=== PATIENT | female | born 1970 | race Caucasian/White ===

== ENCOUNTER → 2020-03-19 10:51 | Outpatient (BNVA) | payer BC, SELFPAY | PROVIDERS: PCP Internal Medicine; Referring Provider Internal Medicine; Visit Provider Orthopaedic Surgery | DX: Z76.89 Persons encountering health services in other specified circumstances (principal) ==

== ENCOUNTER → 2020-07-12 13:09 | Outpatient (BNVA) | payer BC, SELFPAY | PROVIDERS: PCP Internal Medicine; Visit Provider Obstetrics & Gynecology ==

== ENCOUNTER 2021-06-10 09:03 | Outpatient (REF) | payer BC, SELFPAY ==
[2021-06-10 09:53] LABS: COVID-19 Test Negative (Negative)
== END 2021-06-10 09:04 | disposition home or self-care (01) ==
LOC: HO.LAB 09:03
PROVIDERS: Visit Provider Internal Medicine
DX: Z20.822 Contact with and (suspected) exposure to COVID-19 (principal)
CPT/HCPCS: 87635; C9803

== ENCOUNTER 2021-09-06 10:44 | Outpatient (REF) | payer BC, SELFPAY ==
--- NOTE | ~2021-09-06 | MM_ITS ---
EXAMINATION: MM SCREENING DIGITAL BREAST TOMOSYNTHESIS, BILATERAL CLINICAL INFORMATION: Screening. Asymptomatic. The lifetime risk of breast cancer based on the Tyrer-Cuzick Model is 8%. COMPARISON: Mammography: 09/12/2018; outside mammography 08/28/2017, 10/07/2016, 08/25/2016 ([place]). TECHNIQUE: Digital breast tomosynthesis is performed in both the craniocaudal and mediolateral oblique views along with computer-aided detection (CAD). Synthesized 2D images are generated from the tomosynthesis. Additional bilateral MLO views are provided. FINDINGS: There are scattered areas of fibroglandular density (ACR BI-RADS breast composition Category b). There are no significant masses, abnormal calcifications, or other abnormalities. There is no developing density or architectural abnormality. Biopsy clip marker again noted anterior 12:30 o'clock right breast. MM/MM tomosynthesis screening BI IMPRESSION: No mammographic evidence of malignancy. ASSESSMENT: BI-RADS 1: Negative RECOMMENDATION: Routine annual mammography screening. This patient's information was entered into a reminder system with a target due date for their next mammogram.
== END 2021-09-06 10:45 | disposition home or self-care (01) ==
LOC: HO.MAMMO 10:44
PROVIDERS: PCP Internal Medicine; Visit Provider Advanced Practice Midwife
DX: Z12.31 Encounter for screening mammogram for malignant neoplasm of breast (principal)
CPT/HCPCS: 77063; 77067

== ENCOUNTER 2021-09-11 12:57 | Outpatient (REF) | payer BC, SELFPAY ==
[2021-09-13 16:21] LABS: Follicle Stimulating Hormone 5.8 mIU/mL
== END 2021-09-11 12:58 | disposition home or self-care (01) ==
LOC: HO.LAB 12:57
PROVIDERS: PCP Internal Medicine; Visit Provider Advanced Practice Midwife
DX: Z01.411 Encounter for gynecological examination (general) (routine) with abnormal findings (principal); N95.1 Menopausal and female climacteric states
CPT/HCPCS: 36415; 83001

== ENCOUNTER → 2021-09-15 15:54 | Outpatient (BNVA) | payer BC, SELFPAY | PROVIDERS: PCP Internal Medicine; Visit Provider Advanced Practice Midwife | DX: Z13.89 Encounter for screening for other disorder (principal) ==

== ENCOUNTER 2021-12-27 10:26 | Outpatient (REF) | payer BC, SELFPAY ==
--- NOTE | ~2021-12-27 | XR_ITS ---
EXAMINATION: XR HIP, LEFT CLINICAL INFORMATION: Left hip pain COMPARISON: None TECHNIQUE: AP pelvis and 2 views of the left hip of the left hip. FINDINGS: AP film of the pelvis does not demonstrate any evidence of acute fracture or diastases. Sacroiliac joints appear unremarkable. Hip joint spaces appear maintained. There is some mild collar spurring seen about the acetabuli bilaterally. 2 views of the left hip do not demonstrate any evidence of acute fracture or dislocation. Hip joint space maintained. No destructive bony lesion appreciated. XR/XR hip LT w PEL1V IMPRESSION: No significant bony abnormality of the pelvis or left hip appreciated.
== END 2021-12-27 10:27 | disposition home or self-care (01) ==
LOC: HO.HMGCX 10:26
PROVIDERS: Visit Provider Physician Assistant
DX: M25.552 Pain in left hip (principal)
CPT/HCPCS: 73502

== ENCOUNTER 2022-08-21 12:23 | Outpatient (REF) | payer BC, SELFPAY ==
[2022-08-21 13:49] LABS: MANUAL DIFF FLAG NO
[2022-08-21 13:53] LABS: Basophils Percent Auto 0.6 % (0-2); Eosinophils Absolute Auto 0.3 X10*3/uL (0.0-0.4); Eosinophils Percent Auto 4.6 % (0-4); Hematocrit 40.7 % (37.0-47.0); Hemoglobin 13.2 g/dl (12.0-16.0); Imm Gran Abs Auto 0.02 X10*3/uL (0.00-0.03); Imm Gran Pct Auto 0.3 % (0.0-0.4); Lymphocytes Absolute Auto 2.6 X10*3/uL (1.2-4.9); Lymphocytes Percent Auto 36.8 % (20-40); Mean Corpuscular HGB Conc 32.4 g/dl (31.0-35.0); Mean Corpuscular Hemoglobin 29.3 pg (27.0-33.0); Mean Corpuscular Volume 90.4 fL (80.0-98.0); Mean Platelet Volume 9.3 fL (9.4-12.3); Monocytes Absolute Auto 0.5 X10*3/uL (0.1-1.2); Monocytes Percent Auto 7.2 % (2-11); Neutrophils Absolute Auto 3.5 x10*3/uL (2.0-8.3); Neutrophils Percent Auto 50.5 % (45-73); Platelet Count 353 X10*3/uL (160-400)
[2022-08-21 14:14] LABS: Alanine Aminotransferase 13 U/L (0-31); Albumin Level 4.1 g/dL (3.5-5.0); Alkaline Phosphatase 107 U/L (39-117); Anion Gap 11 (12-20); Aspartate Amino Transferase 11 U/L (5-31); Bilirubin Total 0.6 mg/dL (0.0-1.0); Blood Urea Nitrogen 10 mg/dL (9-16); Carbon Dioxide 25 mmol/L (22-29); Chloride 108 mmol/L (96-108); Cholesterol 170 mg/dL; Estimated Glomerular Filt Rate > 60; Glucose Fasting 99 mg/dL (60-99); HDL Cholesterol 44 mg/dL; LDL Cholesterol Calculated 117 mg/dl; Potassium 4.9 mmol/L (3.3-5.1); Sodium 139 mmol/L (135-145); Total Protein 6.5 g/dL (6.5-8.0); Triglycerides 49 mg/dL
[2022-08-21 14:32] LABS: TSH reflex Free T4 0.93 uIU/mL (0.32-4.0)
== END 2022-08-21 12:24 | disposition home or self-care (01) ==
LOC: HO.HMGCLDS 12:23
PROVIDERS: PCP Internal Medicine; Visit Provider Internal Medicine
DX: Z00.00 Encounter for general adult medical examination without abnormal findings (principal)
CPT/HCPCS: 36415; 80053; 80061; 84443; 85025

== ENCOUNTER 2022-09-12 10:12 | Outpatient (REF) | payer BC, SELFPAY ==
--- NOTE | ~2022-09-12 | MM_ITS ---
EXAMINATION: MM SCREENING DIGITAL BREAST TOMOSYNTHESIS, BILATERAL CLINICAL INFORMATION: Screening. Asymptomatic. The lifetime risk of breast cancer based on the Tyrer-Cuzick Model is 9%. COMPARISON: Mammography: 09/06/2021, 09/12/2018, outside mammography 08/28/2017 ([place]). TECHNIQUE: Digital breast tomosynthesis is performed in both the craniocaudal and mediolateral oblique views along with computer-aided detection (CAD). Synthesized 2D images are generated from the tomosynthesis. FINDINGS: There are scattered areas of fibroglandular density (ACR BI-RADS breast composition Category b). There are no significant masses, abnormal calcifications, or other abnormalities. There is a biopsy clip marker anterior central right breast. The parenchymal pattern is similar to prior studies and there is no developing density or architectural abnormality. The axilla and skin contours are unremarkable. MM/MM tomosynthesis screening BI IMPRESSION: No mammographic evidence of malignancy. ASSESSMENT: BI-RADS 1: Negative RECOMMENDATION: Routine annual mammography screening. This patient's information was entered into a reminder system with a target due date for their next mammogram.
== END 2022-09-12 10:13 | disposition home or self-care (01) ==
LOC: HO.MAMMO 10:12
PROVIDERS: PCP Internal Medicine; Visit Provider Internal Medicine
DX: Z12.31 Encounter for screening mammogram for malignant neoplasm of breast (principal)
CPT/HCPCS: 77063; 77067

== ENCOUNTER → 2022-09-16 14:24 | Outpatient (BNVA) | payer BC, SELFPAY | PROVIDERS: PCP Internal Medicine; Visit Provider Advanced Practice Midwife | DX: Z13.89 Encounter for screening for other disorder (principal) ==

== ENCOUNTER 2022-09-30 11:22 | Outpatient (REF) | payer BC, SELFPAY ==
[2022-10-02 07:29] LABS: Follicle Stimulating Hormone 80.1 mIU/mL
== END 2022-09-30 11:23 | disposition home or self-care (01) ==
LOC: HO.HMGCLDS 11:22
PROVIDERS: PCP Internal Medicine; Visit Provider Advanced Practice Midwife
DX: R23.2 Flushing (principal)
CPT/HCPCS: 36415; 83001

== ENCOUNTER 2023-06-28 11:07 | Outpatient (AMB) | payer BC, SELFPAY ==
[2023-06-28 11:08] VITALS: BP 177/88; PULSE 95; BMI 42.9
--- NOTE | 2023-06-28 11:08 | A.OFFVIS_ITS ---
Intake Vital Signs 06/28/23 11:08 Height 5 ft 3 in Weight 242 lb 1.081 oz BMI 42.9 BP 177/88 H Blood Pressure Location Lt brachial Position Sitting Pulse 95 Pulse Source Pulse Oximeter Intake Visit Reasons: Colonoscopy Screening Intake Note: Pt presents to the office today for a colonoscopy screening. Pt states she has never had a previous colonoscopy. Pt denies any GI concerns at this time. Allergies aspartame Allergy (Unknown, Verified 06/28/23 11:10) hives parsnip Allergy (Unknown, Uncoded 06/28/23 11:10) swelling HPI Colonoscopy Screening HPI Details 52 year old? female here today for pre c olonoscopy screening.? Patient was sent to us by her PCP.? This is her first colonoscopy screening.? Patient had positive Cologuard in May of 2022. Patient denies any melena, hematochezia, unintentional weight loss or ribbon like stools. Patient denies any gastrointestinal symptoms in the past or at present.? Denies any personal or family history of gastrointestinal disease, colon polyps, or cancer.? Denies history of difficulty with sedation or anesthesia in the past.? Negative for history of sleep apnea.? Denies any history of cardiac, renal, pulmonary, or hepatic disease.?? No history of infectious? diseases like hepatitis A, B, C, HIV or tuberculosis.? Patient is not on any anticoagulation therapy. 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 Cognitive needs: No Hearing needs: No Vision needs: Yes Female Reproductive History Menstrual Age of Menarche: 12 Review of Systems Const Denies weight gain and Denies weight loss ENT Reports no additional complaints, Denies dysphagia and Denies odynophagia Card Reports no additional complaints Resp Reports no additional complaints GI Denies abdominal pain, Denies belching, Denies melena, Denies bloating, Denies change in bowel habits, Denies dysphagia, Denies excessive flatus, Denies dyspepsia, Denies heartburn, Denies diarrhea, Denies loose stools, Denies nausea, Denies odynophagia and Denies vomiting Musc Reports no additional complaints Neuro Reports no additional complaints Psych Reports no additional complaints Endo Reports no additional complaints Physical Exam Vital Signs: Last Vital Signs Pulse 95 06/28/23 11:08 BP 177/88 H 06/28/23 11:08 BMI result Body Mass Index 42.9 Const General: healthy appearing, no acute distress and well developed Nutritional Appearance: well nourished Orientation/consciousness: patient oriented x3 Resp Effort & Inspection: normal respiratory effort, able to speak in complete sentences, no tracheal deviation and symmetric chest movement Auscultation: clear to auscultation bilaterally Cardio Rate: regular rate GI Inspection: Yes normal to inspection and No distended Palpation (GI): Soft to palpation, not firm, nontender and No hepatosplenomegaly present Auscultation: normal bowel sounds General: Yes no CVA tenderness Back/Spine/Pelvis Back: no CVA tenderness Skin General skin exam: elasticity normal, turgor normal and dry skin Neuro General: patient oriented x3 Psych Appearance: grossly normal Mental Status: mental status grossly normal Assessment & Plan Assessment & Plan (1) Positive colorectal cancer screening using Cologuard test: Code(s): R19.5 - Other fecal abnormalities Plan Patient denies any GI, cardiac or respiratory symptoms.? Denies any issues with anesthesia in the past.? Denies any history of sleep apnea.? No history infectious diseases in the past or present.? Not on any anticoagulation therapy.? No family or personal history of colon cancer or polyps.? As mentioned above in HPI patient had positive Cologuard. Patient denies melena, hematochezia, unintentional weight loss or ribbon like stools.? Discussed at length the pre-procedure,? prep, diet & medications as well as what to expect prior, during and after the procedure.?? Stressed the importance of good bowel prep. ?Recommended the use of Vaseline or Calmoseptine OTC & baby wipes with bowel movements to promote comfort.? ?Patient verbalizes understanding and agrees to plan of care.? She was given the opportunity to ask questions and all questions answered.? We will see her after the procedure.? Medications: New bisacodyl (Dulcolax (bisacodyl)) take 4 tabs at noon the day before your colonoscopy 20 mg (4 x 5 mg) PO ONCE 1 day 4 tabs 0RF Z12.11 - Encounter for screening for malignant neoplasm of colon polyethylene glycol 3350 (Miralax) As directed by gastroenterology department at [facility] 238 grams PO ONCE 238 grams 0RF Z12.11 - Encounter for screening for malignant neoplasm of colon Coding Level of Care Code New Pt Level 3 (96346) Diagnoses Positive colorectal cancer screening using Cologuard test R19.5 Time Spent (min) 40 Comment 30 minutes spent with patient and additional 10 minutes spent reviewing her records
== END 2023-06-28 11:52 | disposition home or self-care (01) ==
PROVIDERS: PCP Internal Medicine; Referring Provider Internal Medicine; Visit Provider Nurse Practitioner Family
DX: R19.5 Other fecal abnormalities (principal)
CPT/HCPCS: 99203

== ENCOUNTER → 2023-06-28 11:07 | Outpatient (BNVA) | payer BC, SELFPAY | PROVIDERS: PCP Internal Medicine; Visit Provider Nurse Practitioner Family ==

== ENCOUNTER 2023-08-16 10:17 | Day surgery (SDC) | payer BC, SELFPAY ==
--- NOTE | 2023-08-13 10:49 | P.CONAN_ITS ---
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) BMI 40.0-44.9, adult (Acute) Perimenopausal (Acute) Encounter for annual routine gynecological examination (Acute) Patellofemoral pain syndrome of left knee (Acute) Patellofemoral pain syndrome of right knee (Acute) Dysuria (Acute) Knee pain (Acute) Past Medical History Medical History BMI 40.0-44.9, adult Family History Family History Father Diabetes mellitus COPD (chronic obstructive pulmonary disease) Mother History of kidney cancer Maternal Grandmother Cervical cancer Surgical History Surgical History History of tonsillectomy History of surgery History of knee surgery Social History Social History Housing: House Alcohol intake: never Patient Tobacco Use Status: Former Tobacco user e-Cigarette/Vaping Use: Never Used Current occupational status: employed 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
[2023-08-16 10:30] VITALS: BMI 43.1
--- NOTE | 2023-08-16 10:38 | MHC.SHP ---
Pre-Procedural Eval Section A - 24 Hr Update-Section A only Date of Service: 08/16/23 The patient is an INPATIENT: No The patient has been examined within 24 hours of the surgical procedure. The History & Physical has been completed within 30 days and I have reviewed it.: No Section B - Complete if H&P > 30 days Chief Complaint: Other fecal abnormalities Relevant Family History (Specify if Yes): No Relevant Social History: Tobacco Use (Former smoker) Present Medications: see Short Stay Collaborative assessment Medical History: Significant History (Morbid obesity, bilateral knee pain) History of Previous Operations: Relevant previous surgery/procedure and date(s) (History of tonsillectomy History of surgery History of knee surgery) Allergies: Allergies Allergy/AdvReac Type Severity Reaction Status Date / Time aspartame Allergy Unknown hives Verified 06/28/23 11:10 parsnip Allergy Unknown swelling Uncoded 06/28/23 11:10 Review of Systems Sugical H&P ROS: Negative: Constitution, Cardiovascular, Respiratory and Gastrointestinal Exam Surgical H&P Exam: Normal: Heart, Normal: Lungs, Normal: Extremities and Normal: Abdomen Plan Diagnosis/Plan: Unchanged I have reviewed the history and physical and performed a pertinent physical examination on my patient. No changes have occurred unless specified. Time Spent With Patient Time: Total time managing care of this patient today ____ minutes.
[2023-08-16 11:04] VITALS: BP 142/90; PULSE 94; RESP 18; TEMP 36.1; O2SAT 96
[2023-08-16] MEDS: Lactated Ringers 1,000 ML 100 ML IVCONT (11:07)
--- NOTE | 2023-08-16 11:09 | HO.ANESPROP2 ---
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) BMI 40.0-44.9, adult (Acute) Perimenopausal (Acute) Encounter for annual routine gynecological examination (Acute) Patellofemoral pain syndrome of left knee (Acute) Patellofemoral pain syndrome of right knee (Acute) Dysuria (Acute) Knee pain (Acute) Past Medical History Medical History BMI 40.0-44.9, adult Patient : No Family History Family History Father Diabetes mellitus COPD (chronic obstructive pulmonary disease) Mother History of kidney cancer Maternal Grandmother Cervical cancer Family history of problems with anesthesia: No Surgical History Surgical History History of tonsillectomy History of surgery History of knee surgery History of Problems with Anesthesia: No Social History Social History Housing: House Alcohol intake: never Patient Tobacco Use Status: Former Tobacco user Quit Date: 1999 e-Cigarette/Vaping Use: Never Used Use of substances other than those prescribed or required for medical reasons: No Are you DNR?: No Advance Directives: No Advance Directives Information Provided: Yes Patient : No (menopause) Current occupational status: employed 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 Cognitive needs: No Hearing needs: No Vision needs: Yes Meds Allergies Allergy/AdvReac Type Severity Reaction Status Date / Time aspartame Allergy Unknown hives Verified 06/28/23 11:10 parsnip Allergy Unknown swelling Uncoded 06/28/23 11:10 Active Medications: Current Medications Lactated Ringer's (Lr) 1,000 mls @ 100 mls/hr IVCONT .Q10H NICKOLAS Last Admin: 08/16/23 11:07 Dose: 100 mls/hr Exam Height,Weight and Vital Signs: Height 5 ft 3 in Weight 110.45 kg Last Vital Signs Temp 96.9 F 08/16/23 11:04 Pulse 94 08/16/23 11:04 Resp 18 08/16/23 11:04 BP 142/90 H 08/16/23 11:04 Pulse Ox 96 08/16/23 11:04 O2 Del Method Room Air 08/16/23 11:04 Airway Mallampati Class: III TM Dist: >3cm Neck ROM: Full Heart: RRR Lungs: CTA Assessment and Plan Assessment Anesthesia Assessment: Anesthesia Plan Discussed Final Anesthetic Review Family History of Problems with Anesthesia: No History of Problems with Anesthesia: No ASA Class: III Final Preanesthetic Review: Meds/Allgs Chart Reviewed, Consent Obtained/Reviewed and Anes Risks/Benef Reviewed Patient Risk: Intermediate Procedure Risk: Low Anesthetic Plan Anesthetic Plan: MAC: Disposition: Standard PACU
--- NOTE | 2023-08-16 12:18 | P.OP_ITS ---
Operative Note Operative Note Date of Service: 08/16/23 Narrative: COLONOSCOPY TILL CECUM WITH SNARE POLYPECTOMY, SUBMUCOSAL INJECTION AND HEMOCLIP PLACEMENT Pre-op diagnosis: Colon cancer screening, positive Cologuard test. Post-op diagnosis:? Colon polyps, Diverticulosis, hemorrhoids Endoscopist:? Nick Murphy MD Anesthesia:?MAC Consent: Indications for the procedure and potential complications of bleeding, perforation, reaction to medications and missed diagnosis were discussed with the patient and informed consent was obtained. Instrument: Olympus PCF H 190 L variable stiffness pediatric colonoscope Monitoring: Vital signs and clinical assessment, intermittent blood pressure monitoring, continuous EKG monitoring, Pulse oximetry and Carbon Dioxide monitoring were done throughout the procedure. Please see anesthesia flowsheet. Colon withdrawl time was 27 minutes. Procedure: The patient was placed in the left lateral decubitis position and pre-procedure medications were administered. After a digital rectal examination of the ano-rectum, the video colonoscope was inserted into the rectum and advanced through the colon to the cecum. The colonoscope was slowly withdrawn in a retrograde panoramic fashion and the colon mucosa was carefully examined including a retroflexed view of the rectum. Findings and interventions are described below. Procedure Difficulty: without difficulty Findings: Terminal Ileum: Not evaluated Cecum: Normal Ascending Colon: Normal Transverse Colon: A 7-8 mm sessile polyp - removed with a cold snare A 2.8 to 3 cms sessile polyp in the distal transverse colon at 65 cms . Polyp was removed with a hot snare and polypectomy site was closed with one hemoclip and marked by saskia ink Descending Colon: Normal Sigmoid Colon: A 7-8 mm sessile polyp - removed with a cold snare. Moderate diverticulosis Rectum: Moderate diverticulosis Ano-rectum: Small internal hemorrhoids Colon preparation: Good after some irrigation. [place] Bowel Preparation Scale Right colon; 2 Transverse colon: 2 Left colon; 2 (0 = Unprepared colon segment with mucosa not seen due to solid stool that cannot be cleared. 1 = Portion of mucosa of the colon segment seen, but other areas of the colon segment not well seen due to staining, residual stool and/or opaque liquid. 2 = Minor amount of residual staining, small fragments of stool and/or opaque liquid, but mucosa of colon segment seen well. 3 = Entire mucosa of colon segment seen well with no residual staining, small fragments of stool or opaque liquid) Impression and Post Procedure Diagnosis: Colonoscopy Findings: One large and two small polyps were removed Moderate diverticulosis seen in the left colon Small hemorrhoids on retroflexed exam. Plan: Pt has a FU appointment on 09/01/23 with Batsheva Zazueta NP Repeat Colonoscopy in 6 to 12 months if transverse colon polyp at 65 cms is adenomatous (to check polypectomy site) and 10 year if polyps are hyperplastic. Above findings were reviewed with the patient and relevant handouts were given and the discharge area.
--- NOTE | 2023-08-16 12:30 | HO.ANESPROP2 ---
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) BMI 40.0-44.9, adult (Acute) Perimenopausal (Acute) Encounter for annual routine gynecological examination (Acute) Patellofemoral pain syndrome of left knee (Acute) Patellofemoral pain syndrome of right knee (Acute) Dysuria (Acute) Knee pain (Acute) Past Medical History Medical History BMI 40.0-44.9, adult Functional capacity: independent ambulation Patient : No Family History Family History Father Diabetes mellitus COPD (chronic obstructive pulmonary disease) Mother History of kidney cancer Maternal Grandmother Cervical cancer Family history of problems with anesthesia: No Surgical History Surgical History History of tonsillectomy History of surgery History of knee surgery History of Problems with Anesthesia: No Social History Social History Housing: House Alcohol intake: never Patient Tobacco Use Status: Former Tobacco user Quit Date: 1999 e-Cigarette/Vaping Use: Never Used Use of substances other than those prescribed or required for medical reasons: No Are you DNR?: No Advance Directives: No Advance Directives Information Provided: Yes Patient : No Current occupational status: employed 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 Cognitive needs: No Hearing needs: No Vision needs: Yes Meds Allergies Allergy/AdvReac Type Severity Reaction Status Date / Time aspartame Allergy Unknown hives Verified 06/28/23 11:10 parsnip Allergy Unknown swelling Uncoded 06/28/23 11:10 Active Medications: Current Medications Lactated Ringer's (Lr) 1,000 mls @ 100 mls/hr IVCONT .Q10H NICKOLAS Last Admin: 08/16/23 11:07 Dose: 100 mls/hr Exam Height,Weight and Vital Signs: Height 5 ft 3 in Weight 110.45 kg Last Vital Signs Temp 96.9 F 08/16/23 11:04 Pulse 94 08/16/23 11:04 Resp 18 08/16/23 11:04 BP 142/90 H 08/16/23 11:04 Pulse Ox 96 08/16/23 11:04 O2 Del Method Room Air 08/16/23 11:04 Airway Mallampati Class: III TM Dist: >3cm Denture: Upper Heart: RRR Lungs: CTA Assessment and Plan Assessment Anesthesia Assessment: Anesthesia Plan Discussed Final Anesthetic Review Family History of Problems with Anesthesia: No History of Problems with Anesthesia: No ASA Class: III Final Preanesthetic Review: Meds/Allgs Chart Reviewed, Consent Obtained/Reviewed and Anes Risks/Benef Reviewed Anesthetic Plan Anesthetic Plan: MAC: Disposition: Standard PACU
--- NOTE | 2023-08-16 12:34 | HO.ANESPROP2 ---
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) BMI 40.0-44.9, adult (Acute) Perimenopausal (Acute) Encounter for annual routine gynecological examination (Acute) Patellofemoral pain syndrome of left knee (Acute) Patellofemoral pain syndrome of right knee (Acute) Dysuria (Acute) Knee pain (Acute) Past Medical History Medical History BMI 40.0-44.9, adult Functional capacity: independent ambulation Family History Family History Father Diabetes mellitus COPD (chronic obstructive pulmonary disease) Mother History of kidney cancer Maternal Grandmother Cervical cancer Family history of problems with anesthesia: No Surgical History Surgical History History of tonsillectomy History of surgery History of knee surgery History of Problems with Anesthesia: No Social History Social History Housing: House Alcohol intake: never Patient Tobacco Use Status: Former Tobacco user Quit Date: 1999 e-Cigarette/Vaping Use: Never Used Current occupational status: employed 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 Cognitive needs: No Hearing needs: No Vision needs: Yes Meds Allergies Allergy/AdvReac Type Severity Reaction Status Date / Time aspartame Allergy Unknown hives Verified 06/28/23 11:10 parsnip Allergy Unknown swelling Uncoded 06/28/23 11:10 Active Medications: Current Medications Lactated Ringer's (Lr) 1,000 mls @ 100 mls/hr IVCONT .Q10H NICKOLAS Last Admin: 08/16/23 11:07 Dose: 100 mls/hr Exam Height,Weight and Vital Signs: Height 5 ft 3 in Weight 110.45 kg Last Vital Signs Temp 96.9 F 08/16/23 11:04 Pulse 94 08/16/23 11:04 Resp 18 08/16/23 11:04 BP 142/90 H 08/16/23 11:04 Pulse Ox 96 08/16/23 11:04 O2 Del Method Room Air 08/16/23 11:04 Assessment and Plan Final Anesthetic Review Family History of Problems with Anesthesia: No History of Problems with Anesthesia: No
[2023-08-16 13:05] VITALS: BP 123/68; PULSE 85; RESP 16; TEMP 36.4; O2SAT 95
[2023-08-16 13:20] VITALS: BP 124/74; PULSE 81; RESP 16; TEMP 36.4; O2SAT 97
--- NOTE | 2023-08-16 13:32 | HO.POSTANES ---
Post Anesthesia Evaluation Post Anesthesia Evaluation Date of Service: 08/16/23 Vital Signs: Vital Signs Temp Pulse Resp BP Pulse Ox O2 Del Method 08/16/23 13:20 97.5 F 81 16 124/74 97 Room Air 08/16/23 13:05 97.5 F 85 16 123/68 95 Room Air 08/16/23 11:04 96.9 F 94 18 142/90 H 96 Room Air Anesthesia: Monitored Mental Status: Awake Pain Control: Satisfactory Nausea/Vomiting: None Hydration: Adequate Anesthesia-Related Issues: No Anes. Related Issues
== END 2023-08-16 13:54 | disposition home or self-care (01) ==
PROVIDERS: PCP Internal Medicine; Visit Provider Internal Medicine Gastroenterology
PROC: 0DJD8ZZ Inspection of Lower Intestinal Tract, Via Natural or Artificial Opening Endoscopic (ICD-10-PCS; CPT 45378; principal; 2023-08-16 12:10)
DX: R19.5 Other fecal abnormalities (principal); D12.3 Benign neoplasm of transverse colon; D12.5 Benign neoplasm of sigmoid colon; K57.30 Diverticulosis of large intestine without perforation or abscess without bleeding; K64.8 Other hemorrhoids; Z98.890 Other specified postprocedural states; Z87.891 Personal history of nicotine dependence
CPT/HCPCS: 45385; 45381; 88305; J2704

== ENCOUNTER → 2023-08-16 10:17 | Outpatient (BNV) | payer BC, SELFPAY | PROVIDERS: PCP Internal Medicine; Visit Provider Internal Medicine Gastroenterology | DX: Z12.11 Encounter for screening for malignant neoplasm of colon (principal); K63.5 Polyp of colon; K57.90 Diverticulosis of intestine, part unspecified, without perforation or abscess without bleeding; K64.8 Other hemorrhoids; R19.5 Other fecal abnormalities | CPT/HCPCS: 45380; 45381; 45385 ==

== ENCOUNTER 2023-09-01 13:06 | Outpatient (AMB) | payer BC, SELFPAY ==
--- NOTE | 2023-09-01 13:35 | MHC.OFFVIS ---
Vital Signs 09/01/23 14:05 Height 5 ft 3 in Weight 241 lb 2.971 oz BMI 42.7 BP 150/79 H Blood Pressure Location Lt brachial Position Sitting Pulse 79 Intake Visit Reasons: s/p colon Intake Note: Alyssa returns to in office visit today s/p colonoscopy 08/16/23. CC: Patient reports doing well and denies having any GI concerns today. 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 Denies any issues with anesthesia in the past.? Denies any history of sleep apnea.? No history infectious diseases in the past or present.? Not on any anticoagulation therapy.? No family or personal history of colon cancer or polyps.? As mentioned above in HPI patient had positive Cologuard. Patient denies melena, hematochezia, unintentional weight loss or ribbon like stools.? Discussed at length the pre-procedure,? prep, diet & medications as well as what to expect prior, during and after the procedure.?? Stressed the importance of good bowel prep. ?Recommended the use of Vaseline or Calmoseptine OTC & baby wipes with bowel movements to promote comfort.? ?Patient verbalizes understanding and agrees to plan of care.? She was given the opportunity to ask questions and all questions answered.? We will see her after the procedure.? Medications New bisacodyl (Dulcolax (bisacodyl)) take 4 tabs at noon the day before your colonoscopy 20 mg (4 x 5 mg) PO ONCE 1 day 4 tabs 0RF Z12.11 polyethylene glycol 3350 (Miralax) As directed by gastroenterology department at [facility] 238 grams PO ONCE 238 grams 0RF Z12.11 COLONOSCOPY: Findings: Terminal Ileum: Not evaluated Cecum: Normal Ascending Colon: Normal Transverse Colon: A 7-8 mm sessile polyp - removed with a cold snare A 2.8 to 3 cms sessile polyp in the distal transverse colon at 65 cms . Polyp was removed with a hot snare and polypectomy site was closed with one hemoclip and marked by saskia ink Descending Colon: Normal Sigmoid Colon: A 7-8 mm sessile polyp - removed with a cold snare. Moderate diverticulosis Rectum: Moderate diverticulosis Ano-rectum: Small internal hemorrhoids Colon preparation: Good after some irrigation. [facility] Bowel Preparation Scale Right colon; 2 Transverse colon: 2 Left colon; 2 (0 = Unprepared colon segment with mucosa not seen due to solid stool that cannot be cleared. 1 = Portion of mucosa of the colon segment seen, but other areas of the colon segment not well seen due to staining, residual stool and/or opaque liquid. 2 = Minor amount of residual staining, small fragments of stool and/or opaque liquid, but mucosa of colon segment seen well. 3 = Entire mucosa of colon segment seen well with no residual staining, small fragments of stool or opaque liquid) Impression and Post Procedure Diagnosis: Colonoscopy Findings: One large and two small polyps were removed Moderate diverticulosis seen in the left colon Small hemorrhoids on retroflexed exam. Plan: Repeat Colonoscopy in 6 to 12 months if transverse colon polyp at 65 cms is adenomatous (to check polypectomy site) and 10 year if polyps are hyperplastic. PATHOLOGY: Diagnosis A. Colon, transverse, polypectomy: Fragments of tubular adenoma; negative for high-grade dysplasia or carcinoma. B. Colon, transverse at 65 cm, polypectomy: Tubular adenoma; negative for high-grade dysplasia or carcinoma. C. Colon, sigmoid, polypectomy: Fragments of tubular adenoma; negative for high-grade dysplasia or carcinoma TODAY'S VISIT Patient is here today for follow-up and to discuss colonoscopy results. Patient had fair prep and large 3 cm tubular adenoma in transverse colon at 65 cm, recommendation was made for patient to return for colorectal screening in 6-12 months. Patient denies any melena, hematochezia, unintentional weight loss or ribbon like stools. Patient denies any ill effects from the prep, anesthesia or procedure itself. Moderate diverticulosis and hemorrhoids seen on colonoscopy as well. Patient denies any dyspepsia, dysphagia or odynophagia. Denies any other GI concerning symptoms. [facility] Medical History (Updated 09/10/23 @ 21:21 by Josehpine Zazueta [facility]) Diverticulosis Tubular adenoma of colon BMI 40.0-44.9, adult Surgical History History of tonsillectomy History of surgery History of knee surgery Family History Father Diabetes mellitus COPD (chronic obstructive pulmonary disease) Mother History of kidney cancer Maternal Grandmother Cervical cancer Social History Housing: House Alcohol intake: never Patient Tobacco Use Status: Former Tobacco user Quit Date: 1999 e-Cigarette/Vaping Use: Never Used Current occupational status: employed 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 Cognitive needs: No Hearing needs: No Vision needs: Yes Female Reproductive History Menstrual Age of Menarche: 12 Review of Systems Const Denies weight gain and Denies weight loss ENT Reports no additional complaints, Denies dysphagia and Denies odynophagia Card Reports no additional complaints Resp Reports no additional complaints GI Denies abdominal pain, Denies belching, Denies melena, Denies bloating, Denies change in bowel habits, Denies dysphagia, Denies excessive flatus, Denies dyspepsia, Denies heartburn, Denies diarrhea, Denies loose stools, Denies nausea, Denies odynophagia and Denies vomiting Musc Reports no additional complaints Neuro Reports no additional complaints Psych Reports no additional complaints Endo Reports no additional complaints Physical Exam Vital Signs: Last Vital Signs Pulse 79 09/01/23 14:05 BP 150/79 H 09/01/23 14:05 BMI result Body Mass Index 42.7 Const General: healthy appearing, no acute distress and well developed Nutritional Appearance: well nourished Orientation/consciousness: patient oriented x3 Resp Effort & Inspection: normal respiratory effort, able to speak in complete sentences, no tracheal deviation and symmetric chest movement Auscultation: clear to auscultation bilaterally Cardio Rate: regular rate GI Inspection: Yes normal to inspection and No distended Palpation (GI): Soft to palpation, not firm, nontender and No hepatosplenomegaly present Auscultation: normal bowel sounds General: Yes no CVA tenderness Back/Spine/Pelvis Back: no CVA tenderness Skin General skin exam: elasticity normal, turgor normal and dry skin Neuro General: patient oriented x3 Psych Appearance: grossly normal Mental Status: mental status grossly normal Assessment & Plan Assessment & Plan (1) Tubular adenoma of colon: Code(s): D12.6 - Benign neoplasm of colon, unspecified Category: Medical (2) Positive colorectal cancer screening using Cologuard test: Code(s): R19.5 - Other fecal abnormalities Category: Medical (3) Diverticulosis: Code(s): K57.90 - Diverticulosis of intestine, part unspecified, without perforation or abscess without bleeding Category: Medical Plan Patient reports that she is moving her bowels well. Discussed with patient colonoscopy results. Return for colorectal screening in 6-12 months. Will book procedure today. Patient has constipation occasionally will send her script for bisacodyl tablets. Patient can take it few days before procedure with magnesium citrate prep at 5 and then it 10. No change in her history and health since last time I have seen her in the office. Patient denies any cardiac or respiratory symptoms. What to expect before during and after procedure discussed with patient. Stressed the importance of good bowel prep and clear liquid diet day before procedure. Patient is agreeable to this plan and verbalizes understanding of instructions. She was given the opportunity to ask questions and all questions answered. Thank you for allowing me to participate in her care Medications: New bisacodyl (Dulcolax (bisacodyl)) 5 mg PO BEDTIME 30 tabs 0RF magnesium citrate Drink one bottle at 17:00 and 2nd bottle at 22:00 296 mL PO ONCE 296 mL 1RF Z12.11 - Encounter for screening for malignant neoplasm of colon
[2023-09-01 14:05] VITALS: BP 150/79; PULSE 79; BMI 42.7
== END 2023-09-01 14:55 | disposition home or self-care (01) ==
PROVIDERS: PCP Internal Medicine; Visit Provider Nurse Practitioner Family
DX: D12.6 Benign neoplasm of colon, unspecified (principal); R19.5 Other fecal abnormalities; K57.90 Diverticulosis of intestine, part unspecified, without perforation or abscess without bleeding
CPT/HCPCS: 99213

== ENCOUNTER → 2023-09-01 13:06 | Outpatient (BNVA) | payer BC, SELFPAY | PROVIDERS: PCP Internal Medicine; Visit Provider Nurse Practitioner Family ==

== ENCOUNTER 2023-09-18 10:17 | Outpatient (REF) | payer BC, SELFPAY ==
--- NOTE | ~2023-09-18 | MM_ITS ---
EXAMINATION: MM SCREENING DIGITAL BREAST TOMOSYNTHESIS, BILATERAL CLINICAL INFORMATION: Screening. Asymptomatic. COMPARISON: Mammography: This study is compared with prior exams dating back to 2018. TECHNIQUE: Digital breast tomosynthesis is performed in both the craniocaudal and mediolateral oblique views along with computer-aided detection (CAD). Synthesized 2D images are generated from the tomosynthesis. FINDINGS: There are scattered areas of fibroglandular density (ACR BI-RADS breast composition Category b). There are no significant masses, abnormal calcifications, or other abnormalities. There is a tissue marker present in the right breast from prior benign percutaneous biopsy. MM/MM tomosynthesis screening BI IMPRESSION: No mammographic evidence of malignancy. ASSESSMENT: BI-RADS BI-RADS 2 - Benign Findings RECOMMENDATION: Routine annual mammography screening. 1 year F/U This examination should not preclude the clinical evaluation of a suspicious palpable abnormality. This patient's information was entered into a reminder system with a target due date for their next mammogram.
== END 2023-09-18 10:18 | disposition home or self-care (01) ==
LOC: HO.MAMMO 10:17
PROVIDERS: PCP Internal Medicine; Visit Provider Internal Medicine
DX: Z12.31 Encounter for screening mammogram for malignant neoplasm of breast (principal)
CPT/HCPCS: 77063; 77067

== ENCOUNTER → 2023-09-18 10:30 | Outpatient (BNV) | payer BC, SELFPAY | PROVIDERS: PCP Internal Medicine; Visit Provider Radiology Diagnostic Radiology | DX: Z12.31 Encounter for screening mammogram for malignant neoplasm of breast (principal) | CPT/HCPCS: 77063; 77067 ==

== ENCOUNTER 2023-09-22 12:53 | Outpatient (REF) | payer BC, SELFPAY ==
[2023-09-29 23:39] LABS: HPV mRNA E6/E7 rflx Not Detected (Not Detected)
== END 2023-09-22 12:54 | disposition home or self-care (01) ==
LOC: HO.LNP 12:53
PROVIDERS: Visit Provider Advanced Practice Midwife
DX: Z01.419 Encounter for gynecological examination (general) (routine) without abnormal findings (principal); Z11.51 Encounter for screening for human papillomavirus (HPV)
CPT/HCPCS: 87624; 88142

== ENCOUNTER 2023-09-22 12:53 | Outpatient (AMB) | payer BC, SELFPAY ==
--- NOTE | 2023-09-22 12:54 | MHC.OFFVIS ---
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 She is doing well with no concerns. Attempting to eat a healthy diet with calcium and vitamin D and stays active with exercise. Currently sexually active. Denies any vaginal dryness or irritation. STI testing offered; she accepts. Last pap smear; 2019. Last mammogram; report pending. Colonoscopy is UTD. Denies any family history of breast, ovarian or colon cancer. [facility] Medical History Diverticulosis Tubular adenoma of colon BMI 40.0-44.9, adult Surgical History History of tonsillectomy History of surgery History of knee surgery Family History Father Diabetes mellitus COPD (chronic obstructive pulmonary disease) Mother History of kidney cancer Maternal Grandmother Cervical cancer Social History Housing: House Alcohol intake: current Alcohol intake frequency: holidays/special occasions only Patient Tobacco Use Status: Former Tobacco user Quit Date: 1999 e-Cigarette/Vaping Use: Never Used Current occupational status: employed Current occupation: [employer] - [employer] - Right Handed Cognitive needs: No Hearing needs: No Vision needs: Yes Female Reproductive History Menstrual Age of Menarche: 12 Menopause type: natural Total pregnancies: 1 Full term: 1 Number of Living Children: 1 Date of last pap smear: 06/17/18 (neg pap and hpv) Date of Mammogram: 09/18/23 Review of Systems Const All systems reviewed & are unremarkable except as noted in HPI and below Reports as per HPI Eyes Reports no additional complaints ENT Reports no additional complaints Card Reports no additional complaints Resp Reports no additional complaints GI Reports as per HPI and Reports no additional complaints Reports as per HPI Musc Reports no additional complaints Skin/Breast Reports as per HPI Neuro Reports no additional complaints Psych Reports no additional complaints Endo Reports no additional complaints Tahir/Lymph Reports no additional complaints Aller/Immun Reports no additional complaints Physical Exam Vital Signs: Last Vital Signs BP 128/86 09/22/23 12:57 BMI result Body Mass Index 43.0 Const General: cooperative, healthy appearing, no acute distress, well developed and alert Orientation/consciousness: patient oriented x3 HEENT Head: Yes normal to inspection Eyes General: appearance normal, both eyes and all related structures Neck Neck: Yes normal visual inspection Thyroid: Thyroid normal Chest Chest palpation & inspection: normal inspection of the chest and other (no puckering, dimpling, peau de orange, retraction, discharge, masses) Breast/axilla inspection: normal inspection of the breasts Breast/axilla palpation: normal palpation of the breasts Resp Effort & Inspection: normal respiratory effort GI Inspection: Yes normal to inspection Palpation (GI): Soft to palpation Rectal Exam - Female: deferred General: Yes bladder normal to palpation External Female Exam: normal external appearance and normal appearance of the urethra Speculum Exam - Vagina: normal appearance of the vagina, normal palpation, normal vaginal discharge and vagina atrophic Speculum Exam - Cervix: normal appearance of the cervix, normal palpation and Other cervical findings present (Bled slightly with Pap) Bimanual exam- vagina & uterus: normal bimanual exam, normal palpation, uterine size normal, bladder normal to palpation, normal palpation and non-tender Bimanual Exam- Adnexa, other: no masses Skin General skin exam: no rashes or lesions noted Rashes: no rashes Neuro General: patient oriented x3 Cognition (Neuro): normal cognition Extrem General: Yes normal to inspection Psych Attitude: cooperative Thought process: Normal thought process present Assessment & Plan Assessment & Plan (1) Encounter for well woman exam with routine gynecological exam: Code(s): Z01.419 - Encounter for gynecological examination (general) (routine) without abnormal findings Plan Discussed: Current recommendations for pap smears per ASCCP guidelines. Breast awareness, periodic self breast exams and yearly mammogram. Maintain a healthy lifestyle, well balanced diet including Calcium 1,200 mg and Vitamin D 600 IU daily, and routine exercise. Contact the office with any postmenopausal bleeding. Patient verbalizes understanding and agrees to the plan of care. She was given opportunity to ask questions and all questions were answered to the best of my ability. RTO in 1 year for annual subwarehouse supervisor exam. This note is constructed using voice recognition software. While every effort has been made to ensure accuracy, telesales professional errors may have been included. Coding Level of Care Code Est Pt Prev Care 40-64y(86495) Diagnoses Encounter for well woman exam with routine gynecological exam Z01.419
[2023-09-22 12:57] VITALS: BP 128/86; BMI 43.0
== END 2023-09-22 13:46 | disposition home or self-care (01) ==
PROVIDERS: Visit Provider Advanced Practice Midwife
DX: Z01.419 Encounter for gynecological examination (general) (routine) without abnormal findings (principal)
CPT/HCPCS: 99396

== ENCOUNTER 2024-03-22 08:00 | Outpatient (REF) | payer OTHER, SELFPAY ==
[2024-03-22 11:27] LABS: Influenza A PCR NEGATIVE (Negative); Influenza B PCR NEGATIVE (Negative); Resp Syncy Virus RNA Qual PCR NEGATIVE (Negative); SARS COV2 PCR INHOUSE NEGATIVE (Negative)
== END 2024-03-22 08:01 | disposition home or self-care (01) ==
LOC: HO.LAB 08:00
PROVIDERS: PCP Internal Medicine; Visit Provider Physician Assistant
DX: J06.9 Acute upper respiratory infection, unspecified (principal)
CPT/HCPCS: 0241U

== ENCOUNTER 2024-03-22 08:00 | Outpatient (AMB) | payer OTHER, SELFPAY ==
[2024-03-22 08:17] VITALS: BP 122/78; PULSE 74; TEMP 37.2; O2SAT 98; BMI 39.0
--- NOTE | 2024-03-22 08:17 | MHC.OFFWIV ---
Intake Vital Signs 03/22/24 08:17 Height 5 ft 3 in Weight 220 lb BMI 39.0 BP 122/78 Blood Pressure Location Rt brachial Position Sitting Pulse 74 Pulse Source Pulse Oximeter Temp 98.9 F Temp Source Oral Pulse Oximetry (%) 98 Intake Visit Reasons: EP Sinus congestion Intake Note: pt is here for sinus congestion for a few days and coughing up green phlem Patient Tobacco Use Status: Former Tobacco user Allergies aspartame Allergy (Unknown, Verified 03/22/24 08:17) hives No Known Drug Allergies Allergy (Unknown, Verified 03/22/24 08:17) none parsnip Allergy (Unknown, Uncoded 06/28/23 11:10) swelling Do you need a note to return to daycare/school/sports/work: No HPI HPI Comments History of Present Illness Details Patient is a 53-year-old female complaining of almost 2 weeks of a sinus infection. She states she has increased head pressure, sinus pain, ear pain, a sore throat and a slight dry cough. She tells me she has had subjective fevers and chills but they seem to be improving. She has been taking Tylenol cold and flu. She has not tried Flonase or a Neti pot with distilled water. She did not test for COVID at home [facility] Medical History Diverticulosis Tubular adenoma of colon BMI 40.0-44.9, adult Surgical History History of tonsillectomy History of surgery History of knee surgery Family History Father Diabetes mellitus COPD (chronic obstructive pulmonary disease) Mother History of kidney cancer Maternal Grandmother Cervical cancer Social History Housing: House Alcohol intake: current Alcohol intake frequency: holidays/special occasions only Patient Tobacco Use Status: Former Tobacco user e-Cigarette/Vaping Use: Never Used Current occupational status: employed 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 Cognitive needs: No Hearing needs: No Vision needs: Yes Female Reproductive History Menstrual Age of Menarche: 12 Review of Systems Const All systems reviewed & are unremarkable except as noted in HPI and below Physical Exam Vital Signs: Last Vital Signs Temp 98.9 F 03/22/24 08:17 Pulse 74 03/22/24 08:17 BP 122/78 03/22/24 08:17 Pulse Ox 98 03/22/24 08:17 BMI result Body Mass Index 39.0 Const General: cooperative, healthy appearing, comfortable and no acute distress Orientation/consciousness: patient oriented x3 Limitations: no limitations HEENT Head: Yes normal to inspection Ears: hearing grossly normal bilaterally, external ears normal and TM's normal bilaterally General nose exam: Normal external nose present, Normal nares present and No nasal discharge present Face and sinus: Yes normal facial exam and Yes sinuses nontender Mouth: Normal oral and palatal mucosa present and moist mucous membranes Throat: Yes tonsils normal, Yes uvula midline and Yes posterior oropharynx abnormal (Erythema) Eyes General: appearance normal, both eyes and all related structures Neck Neck: Yes normal visual inspection Resp Effort & Inspection: normal respiratory effort, able to speak in complete sentences, no respiratory distress, not tachypneic, no tripod positioning and no use of accessory muscles Skin General skin exam: no rashes or lesions noted Neuro General: patient oriented x3 Extrem General: Yes normal to inspection and Yes no clubbing, cyanosis or edema Assessment & Plan Assessment & Plan (1) URI (upper respiratory infection): Code(s): J06.9 - Acute upper respiratory infection, unspecified Qualifiers: URI type: unspecified URI Qualified Code(s): J06.9 - Acute upper respiratory infection, unspecified Plan: Likely a sinusitis, as it has been 2 weeks, we will send a antibiotic. Also sent flu COVID and RSV testing for patient Plan See above Orders: Orders SARS-CoV2/FLU/RSV Today J06.9 - Acute upper respiratory infection, unspecified Medications: New amoxicillin-pot clavulanate 875-125 mg 1 tab PO Q12H 10 tabs 0RF Coding Level of Care Code Est Pt Level 3 (18026) Diagnoses Upper respiratory tract infection, unspecified type J06.9 URI type: unspecified URI
== END 2024-03-22 08:32 | disposition home or self-care (01) ==
PROVIDERS: PCP Internal Medicine; Visit Provider Physician Assistant
DX: J06.9 Acute upper respiratory infection, unspecified (principal)

== ENCOUNTER 2024-04-19 15:19 | Outpatient (REF) | payer OTHER, SELFPAY ==
--- NOTE | ~2024-04-19 | US_ITS ---
EXAMINATION: US PELVIS COMPLETE CLINICAL INFORMATION: Postmenopausal bleeding. COMPARISON: Pelvic ultrasound dated 06/26/2019. TECHNIQUE: Transabdominal and transvaginal imaging were performed. Imaging is limited by body habitus. FINDINGS: The uterus is of normal size and echogenicity, measuring 9.5 x 6.2 x 6.0 cm. The uterus is anteverted. A regular homogeneous endometrium is identified measuring 0.6 cm. Nabothian cysts are seen within the cervix. FIBROIDS: There are 4 fibroids seen. 1. Location: Rightward isthmus. Size: 3.5 x 3.9 x 4.5 cm. Prior: 4.8 x 5.1 x 5.5 cm. Fibroid characteristics: Heterogeneous in echotexture, with foci of internal cystic degeneration. 2. Location: Upper leftward body, myometrial. Size: 1.9 x 1.9 x 2.2 cm. Prior: 2.2 x 2.9 x 2.2 cm. Fibroid characteristics: Hypoechoic. 3. Location: Rightward fundus, subserosal. Size: 2.0 x 1.6 x 1.9 cm. Prior: 2.1 x 1.6 x 2.1 cm. Fibroid characteristics: Hypoechoic. 4. Location: Posterior mid body, myometrial. Size: 2.1 x 1.6 x 2.1 cm. Prior: Not seen. Fibroid characteristics: Hypoechoic. The right ovary is not visualized. The left ovary is normal in size and echotexture, measuring 2.4 x 1.4 x 1.7 cm for a volume of 2.8 mL. There is no pelvic free fluid. No adnexal mass is seen. US/US pelvic and transvaginal IMPRESSION: 1. There is uterine fibroid disease, as detailed. 2. There is borderline postmenopausal endometrial stripe thickening to 6 mm. Gynecology evaluation and management is recommended, consideration for tissue sampling, if clinically indicated. 3. Nabothian cysts are seen within the cervix. 4. The right ovary is not visualized. Electronically signed by: Orlin Pedraza MD 04/19/2024 08:09 PM [facility]
== END 2024-04-19 15:20 | disposition home or self-care (01) ==
LOC: HO.HMGCX 15:19
PROVIDERS: PCP Internal Medicine; Visit Provider Advanced Practice Midwife
DX: N95.0 Postmenopausal bleeding (principal); D21.9 Benign neoplasm of connective and other soft tissue, unspecified
CPT/HCPCS: 76830; 76856

== ENCOUNTER 2024-04-27 10:10 | Outpatient (AMB) | payer OTHER, SELFPAY ==
--- NOTE | 2024-04-27 10:14 | MHC.OFFVIS ---
Vital Signs 04/27/24 10:15 Height 5 ft 3 in Weight 220 lb BMI 39.0 BP 124/86 Intake Visit Reasons: Ultra sound follow up/ EMB Snowmaker: Snowmaker Present (Sandra) Allergies aspartame Allergy (Unknown, Verified 04/27/24 10:14) hives No Known Drug Allergies Allergy (Unknown, Verified 04/27/24 10:14) none parsnip Allergy (Unknown, Uncoded 06/28/23 11:10) swelling HPI Comments Details: Patient is here today for a follow up pelvic ultrasound due to history of postmenopausal bleeding and reports she has right-sided pelvic pain since her pelvic ultrasound last week. She also reports low back pain for the last 2 weeks worsening over the last 2 days and reports today as she is very uncomfortable. History of previous back pain a year ago with pain radiating to the left gluteus region, and was told it was due to her weight. She denies any recent back injury or falls. [facility] Medical History (Updated 04/27/24 @ 11:16 by Bia Galicia CNM) Fibroid Diverticulosis Tubular adenoma of colon BMI 40.0-44.9, adult Surgical History History of tonsillectomy History of surgery History of knee surgery Family History Father Diabetes mellitus COPD (chronic obstructive pulmonary disease) Mother History of kidney cancer Maternal Grandmother Cervical cancer Social History Housing: House Alcohol intake: current Alcohol intake frequency: holidays/special occasions only Patient Tobacco Use Status: Former Tobacco user e-Cigarette/Vaping Use: Never Used Current occupational status: employed 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 Cognitive needs: No Hearing needs: No Vision needs: Yes Female Reproductive History Menstrual Age of Menarche: 12 Review of Systems Const All systems reviewed & are unremarkable except as noted in HPI and below Physical Exam Vital Signs: Last Vital Signs BP 124/86 04/27/24 10:15 BMI result Body Mass Index 39.0 Const General: cooperative, healthy appearing and no acute distress Orientation/consciousness: patient oriented x3 GI Inspection: Yes normal to inspection Palpation (GI): Soft to palpation and Other GI palpation findings present (Nontender) Rectal Exam - Female: visual inspection normal General: Yes bladder normal to palpation External Female Exam: normal appearance of the urethra Speculum Exam - Vagina: normal appearance of the vagina, normal palpation and normal vaginal discharge Speculum Exam - Cervix: normal appearance of the cervix and normal palpation Bimanual exam- vagina & uterus: normal bimanual exam, normal palpation, uterine size normal, bladder normal to palpation, normal palpation, uterine shape normal and non-tender Bimanual Exam- Adnexa, other: normal adnexae Neuro General: patient oriented x3 Office Procedures Endometrial Biopsy Details: The patient is here today for an endometrial biopsy due to postmenopausal bleeding, to rule out any pathology including atypical, hyperplasia or cancer cells of the uterus. She was counseled regarding anticipatory guidance for the procedure including the risks for pain, infection, bleeding, perforation, potential injury to the tissues may include the cervix, uterus, tubes, bladder and bowels. These injuries may include further treatment and evaluation including surgery, blood transfusions, antibiotics, hospitalizations and anesthesia. Permanent injury and scarring can occur. She was consented for the procedure, and the consent forms were signed. She is agreeable to have the procedure today. All questions were answered. Endometrial Biopsy Procedure: The patient was placed in the dorsal lithotomy position and a sterile speculum inserted. Using aseptic technique for the procedure. The cervix was cleansed with Betadine x 3 swabs. A single toothed tenaculum was placed on the cervix for stabilization and the uterus was sounded to 8 cm with a 4mm pipelle, and tissue sample obtained. Minimal bleeding was observed. The tissue sample was placed in formalin in a patient labeled container by staff assisting and sent to the pathology department for processing and interpretation. The patient tolerate the procedure well and was in good condition when leaving the department. Endometrial Biopsy Post Procedure Care: Nothing in the vagina including: tampons, douching or intimacy until all the bleeding has subsided. There may be some post procedure bleeding for several days, this bleeding is usually light and may turn to a light brown or pink color. Mild cramps may occurs. Nothing in the vaginal including: tampons, douching, or intimacy until all the bleeding has subsided. You may take an over the counter mild analgesic such as Tylenol or Advil (if no allergies) per the manufactures recommendation on dosing, frequency, and follow the directions completely. Call the office if any: fever (over 100.4), flu like symptoms, abdominal pain (worse than cramping), foul smelling, infected appearing vaginal discharge, or heavy bleeding. Return to the office in 2 weeks for results and plan of care. This note is constructed using voice recognition software. While every effort has been made to ensure accuracy, scout errors may have been included. [id number] Biopsy Results Reviewed Results Reviewed: [facility] [place] [place] [address] Ultrasound Report Signed Patient: Alyssa Andres MR#: [id number] : 1970 Acct:[id number] Age/Sex: 53 / F ADM Date: 04/19/24 Loc: [facility] Attending Dr: Bia Galicia CNM Ordering Physician: Bia Galicia CNM Date of Service: 04/19/24 Procedure(s): US pelvic and transvaginal Accession Number(s): [id number] cc: Jovita Ye MD; Bia Galicia CNM~ EXAMINATION: US PELVIS COMPLETE CLINICAL INFORMATION: Postmenopausal bleeding. COMPARISON: Pelvic ultrasound dated 06/26/2019. TECHNIQUE: Transabdominal and transvaginal imaging were performed. Imaging is limited by body habitus. FINDINGS: The uterus is of normal size and echogenicity, measuring 9.5 x 6.2 x 6.0 cm. The uterus is anteverted. A regular homogeneous endometrium is identified measuring 0.6 cm. Nabothian cysts are seen within the cervix. FIBROIDS: There are 4 fibroids seen. 1. Location: Rightward isthmus. Size: 3.5 x 3.9 x 4.5 cm. Prior: 4.8 x 5.1 x 5.5 cm. Fibroid characteristics: Heterogeneous in echotexture, with foci of internal cystic degeneration. 2. Location: Upper leftward body, myometrial. Size: 1.9 x 1.9 x 2.2 cm. Prior: 2.2 x 2.9 x 2.2 cm. Fibroid characteristics: Hypoechoic. 3. Location: Rightward fundus, subserosal. Size: 2.0 x 1.6 x 1.9 cm. Prior: 2.1 x 1.6 x 2.1 cm. Fibroid characteristics: Hypoechoic. 4. Location: Posterior mid body, myometrial. Size: 2.1 x 1.6 x 2.1 cm. Prior: Not seen. Fibroid characteristics: Hypoechoic. The right ovary is not visualized. The left ovary is normal in size and echotexture, measuring 2.4 x 1.4 x 1.7 cm for a volume of 2.8 mL. There is no pelvic free fluid. No adnexal mass is seen. US/US pelvic and transvaginal IMPRESSION: 1. There is uterine fibroid disease, as detailed. 2. There is borderline postmenopausal endometrial stripe thickening to 6 mm. Gynecology evaluation and management is recommended, consideration for tissue sampling, if clinically indicated. 3. Nabothian cysts are seen within the cervix. 4. The right ovary is not visualized. Electronically signed by: Orlin Pedraza MD 04/19/2024 08:09 PM [facility] Dictated By: Orlin Pedraza MD Signed By: <Electronically signed by Orlin Pedraza MD in OV> 04/19/242008 DD/ 1526 TD/TT: 04/19/24 1545 Long Chain Quiller Tender: LEEANNE Assessment & Plan Assessment & Plan (1) Pelvic pain: Code(s): R10.2 - Pelvic and perineal pain Category: Medical (2) Encounter to discuss test results: Code(s): Z71.2 - Person consulting for explanation of examination or test findings (3) PMB (postmenopausal bleeding): Code(s): N95.0 - Postmenopausal bleeding Category: Medical Plan Discussed: Ultrasound findings for distinct fibroids (4), 1 subserosal, largest 4.5cm. Appearance are stable in so far as growth and size measurements from previous scan or have reduced in size. Pain may be associated to the digression of the fibroid. Discomfort was noted on right side during procedure today. Counseled re: Leiomyoma: common pelvic neoplasm. Differential diagnosis-may include but not limited to- leiomyosarcoma which is a rare uterine sarcoma 3-7/100,000, difficult to distinguish from fibroids on ultrasound from uterine sarcoma's. Unlikely any single test will have a highly positive predictive value. Hysterectomy is not recommended for sole purpose of excluding malignant neoplasm. Consult for surgical exploration, medical treatment, other treatments, verses expectant management, pros and cons, risks and benefits. Plan short interval assessment of fibroid due to the right-sided pain and nonvisualized right. Advised to call if this pain has increased or any other concerns. Report any PMB, pelvic pressure, bloating, or new onset or increased pain. Referral to MD if indicated for level of care if indicated. Comfort measures reviewed the use of [id number] medications such as ibuprofen and Tylenol and when to take in appropriate rotation of meds along with food. Concerns for back pain may be separate from fibroid discomfort, advised to seek evaluation with her primary care for back pain. See procedure notes. Orders: Orders US pelvic and transvaginal 06/05/24 D21.9 - Benign neoplasm of connective and other soft tissue, unspecified Surgical Today D21.9 - Benign neoplasm of connective and other soft tissue, unspecified, N95.0 - Postmenopausal bleeding Coding Level of Care Code Procedure Only Diagnoses Pelvic pain R10.2 Encounter to discuss test results Z71.2 PMB (postmenopausal bleeding) N95.0 CPT Codes Endometrial Biopsy - CPT: 93417-[id number] Biopsy ([id number]) Comment Add modifier for additional counseling and follow up diagnosis fibroids and pelvic pain
[2024-04-27 10:15] VITALS: BP 124/86; BMI 39.0
== END 2024-04-27 14:31 | disposition home or self-care (01) ==
LOC: HO.HWS 10:10
PROVIDERS: PCP Internal Medicine; Visit Provider Advanced Practice Midwife
DX: N95.0 Postmenopausal bleeding (principal); R10.2 Pelvic and perineal pain; Z71.2 Person consulting for explanation of examination or test findings
CPT/HCPCS: 58100

== ENCOUNTER 2024-04-27 10:10 | Outpatient (REF) | payer OTHER, SELFPAY | END 2024-04-27 10:11 | disposition home or self-care (01) | LOC: HO.LNP 10:10 | PROVIDERS: PCP Internal Medicine; Visit Provider Advanced Practice Midwife | DX: R10.2 Pelvic and perineal pain (principal); N95.0 Postmenopausal bleeding; D21.9 Benign neoplasm of connective and other soft tissue, unspecified | CPT/HCPCS: 58100; 88305; 88342; 88360 ==

== ENCOUNTER 2024-05-10 13:47 | Outpatient (REF) | payer OTHER, SELFPAY | END 2024-05-10 13:48 | disposition home or self-care (01) | LOC: HO.LNP 13:47 | PROVIDERS: PCP Internal Medicine; Visit Provider Obstetrics & Gynecology | DX: N87.9 Dysplasia of cervix uteri, unspecified (principal) | CPT/HCPCS: 57454; 88305 ==

== ENCOUNTER 2024-05-10 13:47 | Outpatient (AMB) | payer OTHER, SELFPAY ==
[2024-05-10 14:16] VITALS: BP 124/80; BMI 39.0
--- NOTE | 2024-05-10 14:16 | A.OFFVIS_ITS ---
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 The patient had endometrial biopsy for postmenopausal bleeding, the pathology showed the following: Endometrium, biopsy: Strips of benign inactive endometrium, benign endocervical glandular epithelium, and benign squamous epithelium; no atypia or carcinoma (see comment). Comment: Focal fragments of dysplastic squamous epithelium is present that appears to be a block contaminant. Follow-up with Pap test with HPV testing is recommended Last co testing in 10/14 was negative [facility] Medical History Fibroid Diverticulosis Tubular adenoma of colon BMI 40.0-44.9, adult Surgical History History of tonsillectomy History of surgery History of knee surgery Family History Father Diabetes mellitus COPD (chronic obstructive pulmonary disease) Mother History of kidney cancer Maternal Grandmother Cervical cancer Social History Housing: House Alcohol intake: current Alcohol intake frequency: holidays/special occasions only Patient Tobacco Use Status: Former Tobacco user e-Cigarette/Vaping Use: Never Used Current occupational status: employed 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 Cognitive needs: No Hearing needs: No Vision needs: Yes Female Reproductive History Menstrual Age of Menarche: 12 Review of Systems Const All systems reviewed & are unremarkable except as noted in HPI and below Physical Exam Vital Signs: Last Vital Signs BP 124/80 05/10/24 14:16 BMI result Body Mass Index 39.0 General: Yes no CVA tenderness External Female Exam: normal external appearance and normal appearance of the urethra Speculum Exam - Vagina: normal appearance of the vagina, normal palpation, no lesions and no masses Speculum Exam - Cervix: normal appearance of the cervix, normal palpation, no lesions, no masses and nontender Bimanual exam- vagina & uterus: normal bimanual exam, normal palpation, uterine size normal, normal palpation, uterine shape normal, No Cervical tenderness present and non-tender Bimanual Exam- Adnexa, other: normal adnexae Back/Spine/Pelvis Back: no CVA tenderness Office Procedures Colposcopy Colposcopy: Pre-Procedure Counseling: Before beginning the procedure, I conducted comprehensive counseling with the patient. We thoroughly discussed the procedure itself, including its details, alternatives, and all associated risks. This included but not limited to the following complications such as bleeding, infection, and injury to the vagina, bladder, and vessels, as well as the potential need for transfusion with all its associated risks. Subsequently, the patient sign the consent. Pap smear result: Dysplastic cells on EMB pathology possible contamination Procedure: During the procedure, the following steps were performed: A speculum was inserted, and acetic acid was applied. Colposcopy was conducted, allowing visualization of the transformation zone. Acetowhite lesions were identified at the 5+6+7+12 o'clock position. Cervical biopsies were obtained from the 5+6+7+12 o'clock position, followed by an endocervical curettage (ECC). Vaginoscopy of the upper vagina revealed no evidence of aceto-white lesions. Hemostasis was achieved using Monsel solution, and the patient tolerated the procedure well. Post-Procedure Instructions: The patient was advised to promptly contact the office or the after hours answering service or go to the emergency room if experiencing a temperature exceeding 100.4?F, abdominal pain, nausea/vomiting, or bleeding. Additionally, the patient was instructed to abstain from vaginal intercourse and bathtub use. The patient confirmed understanding of these instructions. Discharge Instructions: The patient was instructed to schedule a follow-up appointment in 2 weeks for further evaluation and management. Please note that this note was generated using a voice recognition program, and errors may have occurred during metal furniture assembler. [id number] of cervix including upper vagina with biopsy and ECC Procedure code (CPT) selection complete Assessment & Plan Assessment & Plan (1) PMB (postmenopausal bleeding): Code(s): N95.0 - Postmenopausal bleeding Category: Medical Plan: Discussed with the patient the results of the endometrial biopsy showing inactive endometrium. Discussed with the patient the sensitivity, specificity, positive and negative predictive value, of endometrial biopsy in detecting endometrial pathology including but not limited to endometrial hyperplasia, cancer and other pathology; instructed the patient to call in case vaginal bleeding bleeding recurs, the next step will be to proceed with a diagnostic hysteroscopy/D&C for further endometrial sampling evaluation to rule out endometrial pathology. All questions answered and the patient verbalized understanding and agreed with the plan. Colpo /biopsy/ECC done, see procedure (2) Dysplasia of cervix: Comment: On EMB pathology with Possible contamination Code(s): N87.9 - Dysplasia of cervix uteri, unspecified Category: Medical Plan: Discussed with the patient the finding on endometrial biopsy pathology, dysplastic cyst, could be contaminant. Recommended colposcopy biopsy ECC to rule out cervical dysplasia. All questions answered, the patient verbalized understanding and agreed with the plan. Colpo biopsy ECC done, see procedure note Orders: Orders AMB Colposcopy Today N87.9 - Dysplasia of cervix uteri, unspecified Coding Level of Care Code Procedure Only Diagnoses PMB (postmenopausal bleeding) N95.0 Dysplasia of cervix N87.9 CPT Codes Colposcopy - CPT: 06760-Eyirsfzgt of cervix including upper vagina with biopsy and ECC ([id number])
== END 2024-05-10 14:56 | disposition home or self-care (01) ==
PROVIDERS: PCP Internal Medicine; Visit Provider Obstetrics & Gynecology
DX: N87.9 Dysplasia of cervix uteri, unspecified (principal); N95.0 Postmenopausal bleeding
CPT/HCPCS: 57454

== ENCOUNTER 2024-05-30 09:53 | Outpatient (AMB) | payer OTHER, SELFPAY ==
--- NOTE | 2024-05-30 09:53 | MHC.OFFVIS ---
Intake Visit Reasons: colpo results Allergies aspartame Allergy (Unknown, Verified 05/10/24 14:17) hives No Known Drug Allergies Allergy (Unknown, Verified 05/10/24 14:17) none parsnip Allergy (Unknown, Uncoded 06/28/23 11:10) swelling HPI Comments Details: The patient is scheduled a telehealth post colpo for follow-up. The patient is doing well with no complaints. The pathology showed the following: A. Endocervix, curettage: Superficial fragments of endocervical mucosa and epithelium within normal limits. B. Cervix, 5 o'clock, biopsy: Inflamed squamous and endocervical mucosa with reactive changes. C. Cervix, 6 o'clock, biopsy: Mildly inflamed squamous mucosa with reactive changes and partial atrophy. D. Cervix, 7 o'clock, biopsy: Few small superficial fragments of atrophic squamous and endocervical epithelium. E. Cervix, 12 o'clock, biopsy: Inflamed squamous and endocervical mucosa with reactive changes [facility] Medical History Fibroid Diverticulosis Tubular adenoma of colon BMI 40.0-44.9, adult Surgical History History of tonsillectomy History of surgery History of knee surgery Family History Father Diabetes mellitus COPD (chronic obstructive pulmonary disease) Mother History of kidney cancer Maternal Grandmother Cervical cancer Social History Housing: House Alcohol intake: current Alcohol intake frequency: holidays/special occasions only Patient Tobacco Use Status: Former Tobacco user e-Cigarette/Vaping Use: Never Used Current occupational status: employed 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 Cognitive needs: No Hearing needs: No Vision needs: Yes Female Reproductive History Menstrual Age of Menarche: 12 Review of Systems Const All systems reviewed & are unremarkable except as noted in HPI and below Reports as per HPI and Reports no additional complaints GI Reports no additional complaints Reports no additional complaints Telehealth Telehealth Telehealth Platform: Telephone Location of provider rendering services: practice address Location of patient: address on file Patient Identification confirmed using: Name, : Yes Telehealth method: video Patient verbally consented to treatment: Yes Patient verbally consented to billing insurance company: Yes Patient informed of any privacy concerns related to visit: Yes Assessment & Plan Assessment & Plan (1) Dysplasia of cervix: Comment: On EMB pathology with Possible contamination Code(s): N87.9 - Dysplasia of cervix uteri, unspecified Category: Medical Plan: Discussed with the patient the pathology results of the colposcopy biopsies & endocervical curettage ( negative). Discussed with the patient the sensitivity specificity, positive and negative predictive value in detecting cervical cancer in addition discussed the regression, persistence and progression rates. Recommended co-testing in 12 months, if cytology and or HPV are abnormal will proceed was colposcopy biopsy and endocervical curettage. Instructions given to the patient to schedule a co test appointment in 1 year. All questions answered the patient verbalized understanding. Coding Level of Care Code Est Pt Level 3 (11731) Diagnoses Dysplasia of cervix N87.9
== END 2024-05-30 11:56 | disposition home or self-care (01) ==
LOC: HO.HWS 09:53
PROVIDERS: PCP Internal Medicine; Visit Provider Obstetrics & Gynecology
DX: N87.9 Dysplasia of cervix uteri, unspecified (principal)
CPT/HCPCS: 99213

== ENCOUNTER → 2024-05-30 09:53 | Outpatient (BNVA) | payer OTHER, SELFPAY | PROVIDERS: PCP Internal Medicine; Visit Provider Obstetrics & Gynecology ==

== ENCOUNTER 2024-06-06 15:21 | Outpatient (REF) | payer OTHER, SELFPAY ==
--- NOTE | ~2024-06-06 | US_ITS ---
EXAMINATION: US PELVIS CLINICAL INFORMATION: Follow-up on fibroids, pelvic pain. COMPARISON: 04/19/2024 pelvic US. TECHNIQUE: Ultrasound of the pelvis is performed using both transabdominal and transvaginal transducers along with Doppler. Transvaginal imaging is performed due to inadequate visualization transabdominally. 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 FINDINGS: Uterus: The uterus is anteverted and measures 9.0 x 5.1 x 5.3 cm. Volume = 128 mL. (Previously volume = 185 mL). The cervix appears normal with nabothian cysts present. The double wall endometrial thickness is 0.4 mm. The uterus is smooth in contour and has normal myometrial echogenicity. There are 4 uterine fibroids visualized: -Dorsal mid uterine segment subserosal fibroid measuring 3.7 x 2.4 x 3.3 cm (previously 3.5 x 3.9 x 4.5 cm). -Smaller dorsal mid uterine segment subserosal fibroid measuring 2.3 x 1.8 x 1.6 cm, not previously imaged. This may be new. -Anterior mid uterine segment subserosal fibroid measuring 1.5 x 1.2 x 1.6 cm (previously 2.0 x 1.6 x 1.9 cm). -Left mid uterine segment intramural fibroid measuring 2.9 x 2.0 x 2.0 cm (previously 1.9 x 1.9 x 2.2 cm). Adnexa: Right ovary could not be definitively visualized. There is normal color flow to the adnexa. There is no left ovarian torsion. There is no pelvic ascites or fluid collection. There are no adnexal masses visualized. Left ovary measures 1.5 x 0.9 x 1.2 cm. Volume = 0.9 mL. Normal sonographic appearance. US/US pelvic and transvaginal IMPRESSION: 1. There are 4 uterine fibroid tumors identified, the largest is subserosal in the dorsal mid uterine segment measuring 3.7 cm, smaller than previously. A small dorsal subserosal mid uterine segment fibroid measuring 2.3 x 1.8 x 1.6 cm was not previously seen and may be new. 2. Normal endometrium. 3. Right ovary not visualized. No right adnexal masses. 4. Normal left ovary. Electronically signed by: David Trinh MD 06/07/2024 10:38 AM [facility]
== END 2024-06-06 15:22 | disposition home or self-care (01) ==
LOC: HO.HMGCX 15:21
PROVIDERS: PCP Internal Medicine; Visit Provider Advanced Practice Midwife
DX: D21.9 Benign neoplasm of connective and other soft tissue, unspecified (principal)
CPT/HCPCS: 76830; 76856

== ENCOUNTER → 2024-06-06 15:24 | Outpatient (BNV) | payer OTHER, SELFPAY | PROVIDERS: PCP Internal Medicine; Visit Provider Radiology Diagnostic Radiology | DX: D25.2 Subserosal leiomyoma of uterus (principal) | CPT/HCPCS: 76830; 76856 ==

== ENCOUNTER 2024-07-12 14:31 | Outpatient (AMB) | payer OTHER, SELFPAY ==
--- NOTE | 2024-07-12 14:34 | MHC.OFFVIS ---
Intake Visit Reasons: EMB/ultra sound follow up Social Media Developer: Social Media Developer Present (Clarissa) Accompanied by: Self / Same As Patient Allergies aspartame Allergy (Unknown, Verified 07/12/24 14:34) hives No Known Drug Allergies Allergy (Unknown, Verified 07/12/24 14:34) none parsnip Allergy (Unknown, Uncoded 06/28/23 11:10) swelling Is last menstrual period known: Yes HPI Comments Details: Patient is here today for a follow up pelvic ultrasound, history of fibroids. She is also has questions regarding the plan of care due to abnormal dysplastic cells found on the endometrial biopsy, a colpo follow up was negative. It was discussed at the time there was a lab cross contaminant and understands that it was done to make sure that she did not have any abnormal findings. 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 [place] [id number] Ultrasound Report Signed Patient: Alyssa Andres MR#: [id number] : 1970 Acct:[id number] Age/Sex: 53 / F ADM Date: 06/06/24 Loc: HO.HMGCX Attending Dr: Bia Galicia CNM Ordering Physician: Bia Galicia CNM Date of Service: 06/06/24 Procedure(s): US pelvic and transvaginal Accession Number(s): [id number] cc: Jovita Ye MD; Bia Galicia CNM~ EXAMINATION: US PELVIS CLINICAL INFORMATION: Follow-up on fibroids, pelvic pain. COMPARISON: 04/19/2024 pelvic US. TECHNIQUE: Ultrasound of the pelvis is performed using both transabdominal and transvaginal transducers along with Doppler. Transvaginal imaging is performed due to inadequate visualization transabdominally. Exam submitted for review 06/07/2024 9:23 AM LABORATORY ASSISTANT. FINDINGS: Uterus: The uterus is anteverted and measures 9.0 x 5.1 x 5.3 cm. Volume = 128 mL. (Previously volume = 185 mL). The cervix appears normal with nabothian cysts present. The double wall endometrial thickness is 0.4 mm. The uterus is smooth in contour and has normal myometrial echogenicity. There are 4 uterine fibroids visualized: -Dorsal mid uterine segment subserosal fibroid measuring 3.7 x 2.4 x 3.3 cm (previously 3.5 x 3.9 x 4.5 cm). -Smaller dorsal mid uterine segment subserosal fibroid measuring 2.3 x 1.8 x 1.6 cm, not previously imaged. This may be new. -Anterior mid uterine segment subserosal fibroid measuring 1.5 x 1.2 x 1.6 cm (previously 2.0 x 1.6 x 1.9 cm). -Left mid uterine segment intramural fibroid measuring 2.9 x 2.0 x 2.0 cm (previously 1.9 x 1.9 x 2.2 cm). Adnexa: Right ovary could not be definitively visualized. There is normal color flow to the adnexa. There is no left ovarian torsion. There is no pelvic ascites or fluid collection. There are no adnexal masses visualized. Left ovary measures 1.5 x 0.9 x 1.2 cm. Volume = 0.9 mL. Normal sonographic appearance. US/US pelvic and transvaginal IMPRESSION: 1. There are 4 uterine fibroid tumors identified, the largest is subserosal in the dorsal mid uterine segment measuring 3.7 cm, smaller than previously. A small dorsal subserosal mid uterine segment fibroid measuring 2.3 x 1.8 x 1.6 cm was not previously seen and may be new. 2. Normal endometrium. 3. Right ovary not visualized. No right adnexal masses. 4. Normal left ovary. Electronically signed by: David Trinh MD 06/07/2024 10:38 AM EST Dictated By: David Trinh MD Signed By: <Electronically signed by David Trinh MD in OV> 06/07/24 1038 DD/ 1533 TD/TT: 06/06/24 1554 Calender Machine Operator: Assessment & Plan Assessment & Plan (1) Fibroid: Code(s): D21.9 - Benign neoplasm of connective and other soft tissue, unspecified Plan: Counseled re: Leiomyoma: common pelvic neoplasm. Differential diagnosis-may include but not limited to- leiomyosarcoma which is a rare uterine sarcoma 3-7/100,000, difficult to distinguish from fibroids on ultrasound from uterine sarcoma's. Unlikely any single test will have a highly positive predictive value. Hysterectomy is not recommended for sole purpose of excluding malignant neoplasm. Consult for surgical exploration, medical treatment, other treatments, verses expectant management, pros and cons, risks and benefits. Expectant management follow up in 6 months, then yearly for stability. Follow up ultrasound findings can be done with a tele visit unless she needs to be seen for other concerns. Patient prefers to proceed with expectant management. Report any PMB pelvic pressure, bloating, or pain. Referral to MD if indicated for level of care if indicated. She expressed her concerns about possibly not doing continued surveillance, and may consider a future surgical consult, at this time she declines a consult referal to [facility]. I did inform her if she changes her mind she can send a message in and that can be done without her coming back in the office. (2) Encounter to discuss test results: Code(s): Z71.2 - Person consulting for explanation of examination or test findings Plan Discussed: ultrasound findings- fibroid changes-see report, previous ultrasound, Pap, colpo and endometrial biopsy results reviewed. Co testing recommended for April at a year interval, we will combine with her regular annual exam and schedule that timeframe. The patient expressed understanding and agreement with the plan of care. All of her questions and concerns were addressed to the best of my ability. This note is constructed using voice recognition software. While every effort has been made to ensure accuracy, color card maker errors may have been included. Orders: Orders US pelvic and transvaginal 12/04/24 D21.9 - Benign neoplasm of connective and other soft tissue, unspecified Coding Level of Care Code Est Pt Level 3 (21167) Diagnoses Fibroid D21.9 Encounter to discuss test results Z71.2
== END 2024-07-12 15:12 | disposition home or self-care (01) ==
LOC: HO.HWS 14:31
PROVIDERS: PCP Internal Medicine; Visit Provider Advanced Practice Midwife
DX: D21.9 Benign neoplasm of connective and other soft tissue, unspecified (principal); Z71.2 Person consulting for explanation of examination or test findings
CPT/HCPCS: 99213

== ENCOUNTER → 2024-07-12 14:31 | Outpatient (BNVA) | payer OTHER, SELFPAY | PROVIDERS: PCP Internal Medicine; Visit Provider Advanced Practice Midwife ==

== ENCOUNTER 2024-09-23 10:16 | Outpatient (REF) | payer OTHER, SELFPAY | END 2024-09-23 10:17 | disposition home or self-care (01) | LOC: HO.MAMMO 10:16 | PROVIDERS: PCP Internal Medicine; Visit Provider Internal Medicine | DX: Z12.31 Encounter for screening mammogram for malignant neoplasm of breast (principal) | CPT/HCPCS: 77063; 77067 ==

== ENCOUNTER → 2024-09-23 10:30 | Outpatient (BNV) | payer OTHER, SELFPAY | PROVIDERS: PCP Internal Medicine; Visit Provider Internal Medicine | DX: Z12.31 Encounter for screening mammogram for malignant neoplasm of breast (principal) | CPT/HCPCS: 77063; 77067 ==

== ENCOUNTER 2024-10-04 08:06 | Outpatient (AMB) | payer OTHER, SELFPAY ==
[2024-10-04 08:12] VITALS: BP 128/84; PULSE 77; TEMP 36.7; O2SAT 98; BMI 39.0
--- NOTE | 2024-10-04 08:12 | AM.OFFWIN_ITS ---
Intake Vital Signs 10/04/24 08:12 Height 5 ft 3 in Weight 220 lb BMI 39.0 BP 128/84 Blood Pressure Location Lt brachial Position Sitting Pulse 77 Pulse Source Pulse Oximeter Temp 98.1 F Temp Source Oral Pulse Oximetry (%) 98 Oxygen Delivery Method Room Air Intake Visit Reasons: EP-rt severe leg pain Patient Tobacco Use Status: Former Tobacco user Allergies aspartame Allergy (Unknown, Verified 10/04/24 08:12) hives No Known Drug Allergies Allergy (Unknown, Verified 10/04/24 08:12) none parsnip Allergy (Unknown, Uncoded 10/04/24 08:12) swelling Medication List - Last Reconciled 10/04/24 by Rosa Drummond MD ibuprofen 600 mg PO TID Do you need a note to return to daycare/school/sports/work: No HPI EP-rt severe leg pain HPI Details History - The patient is a 54-year-old female pr esenting with leg pain and swelling. - Approximately two weeks ago, the patie nt experienced a sudden muscle cramp (Randell horse) in the right leg, which has persisted since the initial onset. - The pain has progressively increased a nd migrated upwards, now affecting the knee and back of the right thigh. - The patient reports swelling around th e right knee contributing to increased discomfort. - Initially, the patient managed ambulat ion with a cane but reports progression to using crutches due to the severity of the pain and inability to bear weight on the right leg. 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 - No recent travel history was reported, nor a history of blood clots. - The pain and swelling have worsened de spite previous physical activity levels maintained at work. - Denies any back pain associated with t he condition. Problem List - Muscle spasm (right leg) - Swelling of the knee - Pain in the right thigh - Limited mobility due to leg pain Patient Instructions - Follow up for an ultrasound to rule ou t potential clot in the leg. - Continue using crutches to aid in mobi lity and reduce bearing weight on the affected leg. - Seek medical attention if symptoms wor sen or new symptoms develop. Ultrasound report came back around 11:00 There is no DVT Patient was instructed to continue with NSAIDs and rest give it another week and if not better follow up with PCP Review of Systems - General: No fever no chills - Neurological: No headaches no dizziness - Ear nose throat: No sore throat no hearing difficulty no ear pain - Cardiovascular: No syncope, no chest pain, no palpitations - Gastrointestinal: No nausea vomiting or diarrhea Physical Exam General: No acute distress HEENT: No acute findings Neck: Supple Respiratory system: Able to talk in full sentences, no audible wheeze Gastrointestinal: No pain Extremities: Right leg pain, with palpation over calf and slightly above the knee posteriorly 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 DOOR BUILDER: Alert awake oriented x3 motor sensory intact Skin: Normal turgor [facility] Medical History Fibroid Diverticulosis Tubular adenoma of colon BMI 40.0-44.9, adult Surgical History History of tonsillectomy History of surgery History of knee surgery Family History Father Diabetes mellitus COPD (chronic obstructive pulmonary disease) Mother History of kidney cancer Maternal Grandmother Cervical cancer Social History Housing: House Alcohol intake: current Alcohol intake frequency: holidays/special occasions only Patient Tobacco Use Status: Former Tobacco user e-Cigarette/Vaping Use: Never Used Current occupational status: employed 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 Cognitive needs: No Hearing needs: No Vision needs: Yes Female Reproductive History Menstrual Age of Menarche: 12 Physical Exam Vital Signs: Last Vital Signs Temp 98.1 F 10/04/24 08:12 Pulse 77 10/04/24 08:12 BP 128/84 10/04/24 08:12 Pulse Ox 98 10/04/24 08:12 Oxygen Delivery Method Room Air 10/04/24 08:12 BMI result Body Mass Index 39.0 Assessment & Plan Assessment & Plan (1) Leg pain, right: Code(s): M79.604 - Pain in right leg (2) Right calf pain: Code(s): M79.661 - Pain in right lower leg (3) Difficulty walking: Code(s): R26.2 - Difficulty in walking, not elsewhere classified Plan History - The patient is a 54-year-old female presenting with leg pain and swelling. - Approximately two weeks ago, the patient experienced a sudden muscle cramp (Randell horse) in the right leg, which has persisted since the initial onset. - The pain has progressively increased and migrated upwards, now affecting the knee and back of the right thigh. - The patient reports swelling around the right knee contributing to increased discomfort. - Initially, the patient managed ambulation with a cane but reports progression to using crutches due to the severity of the pain and inability to bear weight on the right leg. - Patient engages in regular walks at her workplace, a [employer], but has had to limit activity due to the current symptoms. - No recent travel history was reported, nor a history of blood clots. - The pain and swelling have worsened despite previous physical activity levels maintained at work. - Denies any back pain associated with the condition. Problem List - Muscle spasm (right leg) - Swelling of the knee - Pain in the right thigh - Limited mobility due to leg pain Patient Instructions - Follow up for an ultrasound to rule out potential clot in the leg. - Continue using crutches to aid in mobility and reduce bearing weight on the affected leg. - Seek medical attention if symptoms worsen or new symptoms develop. Ultrasound report came back around 11:00 There is no DVT Patient was instructed to continue with NSAIDs and rest give it another week and if not better follow up with PCP Orders: Orders US venous duplex LE RT Today M79.604 - Pain in right leg, M79.661 - Pain in right lower leg Coding Level of Care Code Est Pt Level 4 (69083) Diagnoses Leg pain, right M79.604 Right calf pain M79.661 Difficulty walking R26.2
== END 2024-10-04 08:56 | disposition home or self-care (01) ==
PROVIDERS: PCP Internal Medicine; Visit Provider Internal Medicine
DX: M79.604 Pain in right leg (principal); M79.661 Pain in right lower leg; R26.2 Difficulty in walking, not elsewhere classified

== ENCOUNTER → 2024-10-04 08:06 | Outpatient (BNVA) | payer OTHER, SELFPAY | PROVIDERS: PCP Internal Medicine; Visit Provider Internal Medicine | DX: Z13.89 Encounter for screening for other disorder (principal) ==

== ENCOUNTER 2024-10-04 08:47 | Outpatient (REF) | payer OTHER, SELFPAY ==
--- NOTE | ~2024-10-04 | US_ITS ---
EXAMINATION: US LOWER EXTREMITY VEINS LIMITED FOLLOW UP RIGHT HISTORY: M79.604 - Pain in right leg COMPARISON: There are no prior studies for comparison. TECHNIQUE: Duplex and color Doppler sonographic examination of the deep venous system of the right lower extremity was performed. FINDINGS: The common femoral, superficial femoral, and popliteal veins are patent demonstrating normal compressibility, spontaneous flow, and augmentation. There is a normal color and spectral Doppler waveform appearance of the visualized deep venous system above the knee. The posterior tibial and peroneal veins are patent. US/US venous duplex LE RT IMPRESSION: No evidence of acute DVT in the right lower extremity. Electronically signed by: Matt Moore MD 10/04/2024 10:02 AM EDT RP
== END 2024-10-04 08:48 | disposition home or self-care (01) ==
LOC: HO.HMGCX 08:47
PROVIDERS: PCP Internal Medicine; Visit Provider Internal Medicine
DX: M79.604 Pain in right leg (principal); M79.661 Pain in right lower leg
CPT/HCPCS: 93971

== ENCOUNTER → 2024-10-04 08:49 | Outpatient (BNV) | payer OTHER, SELFPAY | PROVIDERS: PCP Internal Medicine; Visit Provider Radiology Diagnostic Radiology | DX: M79.604 Pain in right leg (principal) | CPT/HCPCS: 93971 ==

== ENCOUNTER 2024-10-13 18:04 | Emergency (ER) | payer OTHER, SELFPAY ==
--- NOTE | ~2024-10-13 | CT_ITS ---
CLINICAL HISTORY: pain, swelling posterior calf --- Additional Notes or Special Instructions: tib fib , free fluid on US, bleeding vs ruptured bakers CT right lower extremity without intravenous contrast Comparison: US - US VENOUS DUPLEX LE RT - 10/13/24 22:53 EDT CR - XR KNEE RT 4V - 10/13/24 21:43 EDT Findings: Images were obtained from the knee through the ankle. No acute fracture. Lateral dislocation of the patella. Trace suprapatellar effusion. Thin subcutaneous simple fluid along the posterior leg from the knee through the mid calf. No organized collection. No popliteal cyst seen. IMPRESSION: 1. Lateral patellar dislocation. 2. Thin subcutaneous simple fluid along the posterior leg from the knee through the mid calf. No organized collection. No popliteal cyst seen. This document has been electronically signed by: Gilbert Le MD on 10/14/2024 00:22:32
--- NOTE | ~2024-10-13 | XR_ITS ---
CLINICAL HISTORY: pain 4 view right knee Comparison: None Findings: No fractures or dislocations. Moderate tricompartmental osteoarthritic changes. No joint effusion. No radiopaque foreign body. IMPRESSION: 1. No acute findings. This document has been electronically signed by: Alex Garcia MD on 10/13/2024 22:11:16
--- NOTE | ~2024-10-13 | US_ITS ---
CLINICAL HISTORY: pain, swelling, r o DVT --- Additional Notes or Special Instructions: hx of bakers cyst Venous duplex ultrasound right lower extremity Comparison: US/NC/SR - US VENOUS DUPLEX LE RT - 10/04/24 09:17 EDT Findings: The visualized deep veins are fully compressible with normal Doppler color flow and spectral tracings. No popliteal cyst. Subcutaneous fluid in the posterior soft tissues measuring 1.3 x 0.4 x 0.9 cm. IMPRESSION: 1. Negative for right lower extremity deep vein thrombosis. 2. Subcutaneous fluid in the posterior soft tissues measuring 1.3 x 0.4 x 0.9 cm. This document has been electronically signed by: Gilbert Le MD on 10/14/2024 00:23:21
[2024-10-13 18:12] VITALS: BP 182/85; PULSE 90; RESP 18; TEMP 36.5; O2SAT 97; BMI 39.0
--- NOTE | 2024-10-13 18:16 | ED.GENADULT ---
HPI - General Adult General Chief complaint: Extremity Injury, Lower Stated complaint: Sever Right Leg Pain Time Seen by Provider: 10/13/24 19:16 Source: patient Limitations: no limitations History of Present Illness ED Provider: Lela Martinez PA-C HPI narrative: 54-year-old female with a history of morbid obesity, patellofemoral pain syndrome of bilateral knees, osteoarthritis, who presents with right lower extremity pain times 10 days. Pain originates from the posterior knee into upper calf. Pain worse with movement. Patient states she initially saw her primary care provider an ultrasound of the leg was ordered it was negative for DVT. Patient states the swelling and pain have increased in severity. Denies overlying redness or warmth of the joint. Denies new activity, heavy lifting or trauma that could have precipitated her symptoms. Related Data Previous Rx's ?Medication ?Instructions ?Recorded ibuprofen 600 mg tablet 600 mg PO TID #60 tabs 12/27/21 meloxicam 15 mg tablet 15 mg PO DAILY #7 tabs 10/14/24 methocarbamol 750 mg tablet 1,500 mg (2 x 750 mg) PO BEDTIME 10/14/24 PRN pain, moderate #10 tabs methylprednisolone 4 mg tablets in 4 mg PO QAM #21 ea 10/14/24 a dose pack (Medrol (Kvng)) Allergies Allergy/AdvReac Type Severity Reaction Status Date / Time aspartame Allergy Unknown hives Verified 10/13/24 18:13 No Known Drug Allergies Allergy Unknown none Verified 10/04/24 08:12 parsnip Allergy Unknown swelling Uncoded 10/13/24 18:13 Review of Systems Review of Systems: Yes all other systems are reviewed and are negative Constitutional: Constitutional: Denies fatigue and Denies fever(s) Cardiovascular: Cardiovascular: Denies chest pain and Denies dyspnea Respiratory: Respiratory: Denies cough and Denies dyspnea Gastrointestinal: Gastrointestinal: Denies abdominal pain Musculoskeletal: Musculoskeletal: Reports arthralgias and Reports joint swelling Integumentary/Breasts: Skin/Breast: Denies erythema Endocrine: Endocrine: Denies fatigue PMFSH Past Medical History Medical History Fibroid Diverticulosis Tubular adenoma of colon BMI 40.0-44.9, adult Surgical History History of tonsillectomy History of surgery History of knee surgery Family History Family History Father Diabetes mellitus COPD (chronic obstructive pulmonary disease) Mother History of kidney cancer Maternal Grandmother Cervical cancer Social History Social History Housing: House Alcohol intake: current Alcohol intake frequency: holidays/special occasions only Patient Tobacco Use Status: Former Tobacco user e-Cigarette/Vaping Use: Never Used Current occupational status: employed 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 Cognitive needs: No Hearing needs: No Vision needs: Yes Physical Exam ED Vital Signs: Vital Signs - 24 hr 10/14/24 01:52 10/14/24 01:52 Temperature 97.8 F 97.8 F Pulse Rate 78 78 Respiratory Rate 18 18 Blood Pressure 185/99 H 185/99 H Pulse Oximetry 96 96 Oxygen Delivery Method Room Air Room Air BMI result Body Mass Index 39.0 Const Other: Alert, appears older than stated age Orientation/consciousness: patient oriented x3 Resp Effort & Inspection: normal respiratory effort Cardio Other: Normal peripheral perfusion Skin Other: Warm dry no rash Neuro Other: Antalgic gait General: patient oriented x3, no focal motor deficits and CN's II-XI intact bilaterally Extrem Other: No deformity noted over the right knee, able to flex and extend, able to ambulate to some degree, the right calf is subtly larger than the left, no overlying erythema of the knee joint Psych Other: Cooperative Course Course Course Narrative: RME, this is a rapid medical exam performed by Richard Walker please refer to primary provider for complete H&P- 54 year old female presents for evaluation of right lower leg pain mostly to the calf. Symptoms started over a week ago. She had an ultrasound 9 days ago that was negative for DVT in the right lower leg. Plan for labs including CPK. She denies any recent injury. Medical Decision Making Medical Decision Making [facility] Narrative: 54-year-old female with a history of morbid obesity, patellofemoral pain syndrome of bilateral knees, osteoarthritis, who presents with right lower extremity pain times 10 days. Pain originates from the posterior knee into upper calf. Pain worse with movement. Patient states she initially saw her primary care provider an ultrasound of the leg was ordered it was negative for DVT. Patient states the swelling and pain have increased in severity. Denies overlying redness or warmth of the joint. Denies new activity, heavy lifting or trauma that could have precipitated her symptoms. Problem: Morbid obesity, significant arthritis History: Per patient I have considered the following differential diagnoses: Fracture, dislocation, DVT, Fabian cyst, septic arthritis Plan: The patient is having worsening pain and swelling, there is still cocnern for DVT, We will repeat the study. She said when she received results from her 1st DVT study, there was no comment about the absence or presence of a Fabian cyst, given she has significant arthritis, this could be the case. I am also obtaining x-ray of the knee. Her exam is not consistent with a septic joint. I have independently reviewed the following tests: Labs: No leukocytosis, not anemic, no electrolyte abnormality noted X-ray right knee: Findings: No fractures or dislocations. Moderate tricompartmental osteoarthritic changes. No joint effusion. No radiopaque foreign body. IMPRESSION: 1. No acute findings. DVT study right lower extremity: Findings: The visualized deep veins are fully compressible with normal Doppler color flow and spectral tracings. No popliteal cyst. Subcutaneous fluid in the posterior soft tissues measuring 1.3 x 0.4 x 0.9 cm. IMPRESSION: 1. Negative for right lower extremity deep vein thrombosis. 2. Subcutaneous fluid in the posterior soft tissues measuring 1.3 x 0.4 x 0.9 cm. Given findings on DVT study, I am obtaining a CT scan of the right lower extremity to better differentiate the fluid collection. It could be from a ruptured Fabian cyst that was not previously reported. The patient states she has also been walking more frequently to get exercise, she could have a muscular tear. Although, this is less likely, given there was no acute onset of pain while ambulating. CT tib-fib:IMPRESSION: 1. Lateral patellar dislocation. 2. Thin subcutaneous simple fluid along the posterior leg from the knee through the mid calf. No organized collection. No popliteal cyst seen. The patient had surgery on the right knee at the age of 16, her patella would repeatedly subluxate, I believe the lateral patellar dislocation is an over-read, clinically this is not the case. Placing the patient in an immobilizer, she has crutches, we will give her follow up with the orthopedic service. Lab Data 10/13/24 18:51 10/13/24 18:51 Labs: Lab Results 10/13/24 Range/Units 18:51 WBC 8.3 (4.8-10.8) X10*3/uL RBC 4.43 (4.20-5.50) X10*6/uL Hgb 12.8 (12.0-16.0) g/dl Hct 38.1 (37.0-47.0) % MCV 86.0 (80.0-98.0) fL MCH 28.9 (27.0-33.0) pg MCHC 33.6 (31.0-35.0) g/dl RDW 13.6 (11.0-16.0) % Plt Count 330 (160-400) X10*3/uL MPV 8.5 L (9.4-12.3) fL Immature Gran % (Auto) 0.2 (0.0-0.4) % Neut % (Auto) 47.9 (45-73) % Lymph % (Auto) 40.5 H (20-40) % [place] % (Auto) 7.8 (2-11) % Eos % (Auto) 3.1 (0-4) % Baso % (Auto) 0.5 (0-2) % Lymph # (Auto) 3.4 (1.2-4.9) X10*3/uL [place] # (Auto) 0.7 (0.1-1.2) X10*3/uL Eos # (Auto) 0.3 (0.0-0.4) X10*3/uL Baso # (Auto) 0.0 (0.0-0.2) X10*3/uL Abs Immat Gran (auto) 0.02 (0.00-0.03) X10*3/uL Absolute Neuts (auto) 4.0 (2.0-8.3) x10*3/uL Absolute Nucleated RBC 0.000 (0.0-0.012) X10*3/uL Nucleated RBC % (auto) 0.0 (0.0-0.2) /100WBC Sodium 146 H (135-145) mmol/L Potassium 4.4 (3.3-5.1) mmol/L Chloride 108 (96-108) mmol/L Carbon Dioxide 28 (22-29) mmol/L Anion Gap 14 (12-20) BUN 19 H (9-16) mg/dL Creatinine 0.68 (0.5-1.4) mg/dL Estim Creat Clear Calc 106.5 Estimated GFR > 60 Random Glucose 88 (60-115) mg/dL Calcium 9.7 D (8.4-10.2) mg/dL Magnesium 1.8 (1.6-2.6) mg/dL Total Creatine Kinase 97 (26-140) U/L Discharge Plan Discharge Clinical Impression: Arthralgia of right knee Patient Disposition: Home, Self-Care Instructions: Arthralgia (ED), P.R.I.C.E. Treatment (ED) Additional Instructions: The x-ray revealed that you have considerable arthritis. The CT scan revealed that you have a small joint effusion surrounding the patella. The ultrasound was negative for a clot in the calf, you were found to have a small fluid collection from posterior/ inferior knee into the calf, within the region where you are having the most discomfort. This fluid collection will absorb on its own. Use the knee immobilizer as directed, with the crutches. Bear weight as tolerated. Take the Medrol Dosepak in the morning. Take the meloxicam mid day. Take both medications with food, they are both anti-inflammatories. Use the methocarbamol at night for sleep. To note this medication will cause drowsiness, do not drive or operate machinery while taking the medication. I am providing with a contact for our orthopedic service, you may benefit from cortisone injections. I would also consider the use of compression stockings for your chronic lower extremity edema. Wear them while ambulatory, remove them at night, elevate your legs above the heart while resting. Follow up with your primary care provider as needed. Prescriptions: New methylprednisolone [Medrol (Kvng)] 4 mg tablets,dose pack 4 mg PO QAM Qty: 21 0RF Rx Instructions: Per package instructions methocarbamol 750 mg tablet 1,500 mg PO BEDTIME PRN (Reason: pain, moderate) Qty: 10 0RF meloxicam 15 mg tablet 15 mg PO DAILY Qty: 7 0RF No Action ibuprofen 600 mg tablet 600 mg PO TID Qty: 60 0RF Referrals: Chava Morales MD [Physician] - (right knee Moderate tricompartmental arthritis) Interventions: ED Discharge Assessment Last Done: 10/14/24 01:52 Discharge Date/Time: 10/14/24 01:54 Print Language: Amharic
[2024-10-13 18:58] LABS: MANUAL DIFF FLAG NO
[2024-10-13 18:59] LABS: Basophils Percent Auto 0.5 % (0-2); Eosinophils Absolute Auto 0.3 X10*3/uL (0.0-0.4); Eosinophils Percent Auto 3.1 % (0-4); Hematocrit 38.1 % (37.0-47.0); Hemoglobin 12.8 g/dl (12.0-16.0); Imm Gran Abs Auto 0.02 X10*3/uL (0.00-0.03); Imm Gran Pct Auto 0.2 % (0.0-0.4); Lymphocytes Absolute Auto 3.4 X10*3/uL (1.2-4.9); Lymphocytes Percent Auto 40.5 % (20-40); Mean Corpuscular HGB Conc 33.6 g/dl (31.0-35.0); Mean Corpuscular Hemoglobin 28.9 pg (27.0-33.0); Mean Platelet Volume 8.5 fL (9.4-12.3); Monocytes Absolute Auto 0.7 X10*3/uL (0.1-1.2); Monocytes Percent Auto 7.8 % (2-11); Neutrophils Percent Auto 47.9 % (45-73); Platelet Count 330 X10*3/uL (160-400); Red Blood Count 4.43 X10*6/uL (4.20-5.50); Red Cell Distribution Width 13.6 % (11.0-16.0); White Blood Count 8.3 X10*3/uL (4.8-10.8)
[2024-10-13 19:16] LABS: Anion Gap 14 (12-20); Blood Urea Nitrogen 19 mg/dL (9-16); Calcium 9.7 mg/dL (8.4-10.2); Carbon Dioxide 28 mmol/L (22-29); Chloride 108 mmol/L (96-108); Creatinine Clr Calc Pharmacy 106.5; Estimated Glomerular Filt Rate > 60; Glucose Random 88 mg/dL (60-115); Magnesium 1.8 mg/dL (1.6-2.6); Potassium 4.4 mmol/L (3.3-5.1); Sodium 146 mmol/L (135-145)
[2024-10-13 21:34] VITALS: BP 179/92; PULSE 81; RESP 16; TEMP 36.7; O2SAT 97
--- NOTE | 2024-10-14 01:50 | MHC.EDTECH ---
Knee Immobilizer apply to Patient right knee .
[2024-10-14 01:52] VITALS: BP 185/99; PULSE 78; RESP 18; TEMP 36.6; O2SAT 96
== END 2024-10-14 01:54 | disposition home or self-care (01) ==
PROVIDERS: Physician Assistant; Emergency Provider Emergency Medicine Emergency Medical Services; PCP Internal Medicine
DX: M25.561 Pain in right knee (principal); R60.0 Localized edema; Z79.899 Other long term (current) drug therapy; Z87.891 Personal history of nicotine dependence
CPT/HCPCS: 36415; 73564; 73700; 80048; 82550; 83735; 85025; 93971; 99283; 99284

== ENCOUNTER → 2024-10-13 21:25 | Outpatient (BNV) | payer OTHER, SELFPAY | PROVIDERS: Emergency Provider Emergency Medicine Emergency Medical Services; PCP Internal Medicine; Visit Provider Radiology Diagnostic Radiology | DX: S83.014A Lateral dislocation of right patella, initial encounter (principal); M25.561 Pain in right knee; M79.89 Other specified soft tissue disorders | CPT/HCPCS: 73564; 73700; 93971 ==

== ENCOUNTER 2024-11-06 08:14 | Outpatient (REF) | payer OTHER, SELFPAY ==
--- NOTE | ~2024-11-06 | XR_ITS ---
CLINICAL HISTORY: M25.569 - Pain in unspecified knee --- Additional Notes or Special Instructions: bs with sunrise 2 views right knee and 1 view of the knee left knee Comparison: 10/13/2024 Findings: No fractures or dislocations. There is moderate degenerative narrowing of the medial femorotibial joint spaces of both left and right knees in the AP projection. No soft tissue calcifications. Small bone spurs are present at the medial and lateral margins of the patellofemoral joint. No radiopaque foreign body. Impression: Moderate degenerative narrowing of medial left and right knee joint compartments. This document has been electronically signed by: Demetrio Mercado MD on 11/06/2024 21:37:48
== END 2024-11-06 08:15 | disposition home or self-care (01) ==
LOC: HO.HOSX 08:14
PROVIDERS: Visit Provider Physician Assistant
DX: M25.561 Pain in right knee (principal)
CPT/HCPCS: 73560

== ENCOUNTER 2024-11-06 08:27 | Outpatient (AMB) | payer OTHER, SELFPAY ==
--- NOTE | 2024-11-06 08:35 | MHC.OFFVIS ---
Vital Signs 11/06/24 08:54 Height 5 ft 3 in Weight 220 lb BMI 39.0 Intake Visit Reasons: ER f/u Right recurrent patellar dislocation Intake Note: Alyssa is a 54 year old female who presents for an ER follow up of right recurrent patellar dislocation. Patient was seen at [facility] ER on 10/13/24 due to increased pain and swelling in knee. Patient menitons that she had surgery when she was 16 for her patella being dislocated. She was initially seen by her PCP who ordered an US to rule out DVT. Denies injury. She was previously seen with Dr. Allen for both of her knees back in 2019, she was given at home exercises. Today patient reports that her pain is mainly coming from her solis cyst not her knee. Patient is thinking of injections but is unsure that it will help. Patient is wearing a knee brace which is giving her relief for the most part. CT tib-fib:IMPRESSION: 1. Lateral patellar dislocation. 2. Thin subcutaneous simple fluid along the posterior leg from the knee through the mid calf. No organized collection. No popliteal cyst seen. Allergies aspartame Allergy (Unknown, Verified 11/06/24 08:52) hives No Known Drug Allergies Allergy (Unknown, Verified 11/06/24 08:52) none naproxen Allergy (Verified 11/06/24 08:53) increased heart rate parsnip Allergy (Unknown, Uncoded 10/13/24 18:13) swelling HPI HPI ER f/u Right recurrent patellar dislocation: Details: 54 yo female presents to the office today for right leg pain. She states she was seen by urgent care for right calf pain , she had an US to r/o DVT which was negative. She was treated symptomatically with NSAIDS, pain continued which prompted her to the ED. She was seen and another US was done along with CT scan. Negative for DVT, + evidence for patellar dislocation. She states most of her pain is located in the right calf and she has increased pain with plantar flexion. She does recall building a trial us at home where she was standing on her tip toes and felt a pop in her calf region. 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 Cognitive needs: No Hearing needs: No Vision needs: Yes Female Reproductive History Menstrual Age of Menarche: 12 Review of Systems Const All systems reviewed & are unremarkable except as noted in HPI and below Physical Exam Vital Signs: BMI result Body Mass Index 39.0 Const General: cooperative and no acute distress Orientation/consciousness: patient oriented x3 Resp Effort & Inspection: normal respiratory effort and able to speak in complete sentences Cardio Peripheral pulses: Peripheral pulses 2+ throughout Neuro General: patient oriented x3 Extrem Other: Right knee is normal to inspection. She has full range of motion with crepitus. Medial joint line tenderness. Significant tenderness along the medial muscle belly of the calf with palpable knot. Pain with plantar flexion in the calf muscle. Neurovascularly intact. Results Reviewed Results Reviewed: X-rays of the right knee obtained in the office today and reviewed by me show moderate to severe osteoarthritis. Assessment & Plan Assessment & Plan (1) Strain of right gastrocnemius muscle: Code(s): S86.111A - Strain of other muscle(s) and tendon(s) of posterior muscle group at lower leg level, right leg, initial encounter Category: Medical (2) Primary osteoarthritis of right knee: Code(s): M17.11 - Unilateral primary osteoarthritis, right knee Category: Medical Plan While the patient does have moderate to severe arthritis of the right knee and do not feel this is the source of her pain. She does have some tenderness within the gastroc region which is been ruled out negative for DVT. I feel as though she does have a right gastroc strain and should be treated with physical therapy. I did place an order for this today. A refill was provided for meloxicam. She will take the prescription daily for 2 weeks and then as needed. If symptoms persist or worsen or there is any concerns she can contact our office otherwise follow up as needed. Orders: Orders XR knee RT 2V Today M25.569 - Pain in unspecified knee PT Evaluation and Treatment Today S86.111A - Strain of other muscle(s) and tendon(s) of posterior muscle group at lower leg level, right leg, initial encounter Medications: Changed From meloxicam 15 mg PO DAILY 7 tabs 0RF To meloxicam 15 mg PO DAILY 30 tabs 3RF 30 days Coding Level of Care Code New Pt Level 3 (87778) Complex EM visit Add On G2211 Diagnoses Strain of right gastrocnemius muscle S86.111A Primary osteoarthritis of right knee M17.11
[2024-11-06 08:54] VITALS: BMI 39.0
== END 2024-11-06 09:38 | disposition home or self-care (01) ==
LOC: HO.HOS 08:28
PROVIDERS: PCP Internal Medicine; Visit Provider Physician Assistant
DX: S86.111A Strain of other muscle(s) and tendon(s) of posterior muscle group at lower leg level, right leg, initial encounter (principal); M17.11 Unilateral primary osteoarthritis, right knee
CPT/HCPCS: 99203

== ENCOUNTER → 2024-11-06 08:28 | Outpatient (BNV) | payer OTHER, SELFPAY | PROVIDERS: Visit Provider Radiology Diagnostic Radiology | DX: M17.11 Unilateral primary osteoarthritis, right knee (principal) | CPT/HCPCS: 73560 ==

== ENCOUNTER 2024-11-11 10:45 | Outpatient (AMB) | payer OTHER, SELFPAY ==
[2024-11-11 10:50] VITALS: BP 136/94; PULSE 88; RESP 15; TEMP 36.8; O2SAT 96; BMI 43.9
--- NOTE | 2024-11-11 10:50 | MHC.OFFWIV ---
Intake Vital Signs 11/11/24 10:50 Height 5 ft 3 in Weight 248 lb BMI 43.9 BP 136/94 H Blood Pressure Location Lt brachial Position Sitting Respiration 15 Pulse 88 Pulse Source Pulse Oximeter Temp 98.2 F Temp Source Oral Pulse Oximetry (%) 96 Oxygen Delivery Method Room Air Intake Visit Reasons: EP-eye infection Intake Note: Pt is here today c/o Lt eye burning crusty Patient Tobacco Use Status: Former Tobacco user Allergies aspartame Allergy (Unknown, Verified 11/11/24 10:51) hives No Known Drug Allergies Allergy (Unknown, Verified 11/11/24 10:51) none naproxen Allergy (Verified 11/11/24 10:51) increased heart rate parsnip Allergy (Unknown, Uncoded 11/11/24 10:51) swelling HPI HPI Comments History of Present Illness Details Alyssa presents with a history of herpes keratitis, which flares up every couple of years. She is seeking a refill of her eye medication, which she reports has been effective in managing her condition during previous flare-ups. The patient states that she typically seeks care at Urgent Care when she experiences a flare-up, as she needs the medication promptly to prevent the condition from worsening. She then follows up with her eye doctor. Alyssa has brought her previous medication bottle, which is two years old, to ensure accurate information about the prescription. She notes that the usual dosing is one drop every 4 hours, although she mentions some confusion about a previous instruction of 9 times a day. The patient identifies the medication as a 1% solution, though she does not recall or state the specific name. 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 Cognitive needs: No Hearing needs: No Vision needs: Yes Female Reproductive History Menstrual Age of Menarche: 12 Physical Exam Vital Signs: Last Vital Signs Temp 98.2 F 11/11/24 10:50 Pulse 88 11/11/24 10:50 Resp 15 11/11/24 10:50 BP 136/94 H 11/11/24 10:50 Pulse Ox 96 11/11/24 10:50 Oxygen Delivery Method Room Air 11/11/24 10:50 BMI result Body Mass Index 43.9 Const General: cooperative, healthy appearing, no acute distress and alert Orientation/consciousness: patient oriented x3 Limitations: no limitations HEENT Head: Yes normal to inspection Ears: hearing grossly normal bilaterally General nose exam: Normal external nose present Resp Effort & Inspection: normal respiratory effort and able to speak in complete sentences Cardio Rate: regular rate Skin General skin exam: no rashes or lesions noted Neuro General: patient oriented x3 Extrem General: Yes normal to inspection Assessment & Plan Assessment & Plan (1) 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: Code(s): B00.52 - Herpesviral keratitis Plan: Herpes Keratitis: - Patient reports a history of herpes keratitis with recurrent flare-ups every couple of years - Currently experiencing symptoms consistent with a flare-up - Seeking refill of previously effective medication - Typically receives treatment through Urgent Care due to acute nature of symptoms - Follows up with eye doctor - Has brought previous medication bottle, 2 years old, to ensure accurate prescription information Plan: - Refill eye drop medication (1% concentration) - Instruct patient to use one drop every 4 hours - Advise follow-up with eye doctor for ongoing management Medications: New trifluridine 1% administer 9 doses per day while awake 1 drp ophthalmic (eye) Q4H 7.5 mL 0RF Coding Level of Care Code Est Pt Level 3 (85795) Diagnoses 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
== END 2024-11-11 11:18 | disposition home or self-care (01) ==
LOC: HO.HMCWIC 10:45
PROVIDERS: PCP Internal Medicine; Visit Provider Physician Assistant
DX: B00.52 Herpesviral keratitis (principal)

== ENCOUNTER → 2024-11-11 10:45 | Outpatient (BNVA) | payer OTHER, SELFPAY | PROVIDERS: PCP Internal Medicine; Visit Provider Physician Assistant ==

== ENCOUNTER 2024-11-22 | Outpatient (REF) | payer OTHER, SELFPAY | END 2024-11-22 00:01 | disposition home or self-care (01) | LOC: CF | PROVIDERS: PCP Internal Medicine; Visit Provider Internal Medicine | DX: Z00.00 Encounter for general adult medical examination without abnormal findings (principal); M17.11 Unilateral primary osteoarthritis, right knee; R03.0 Elevated blood-pressure reading, without diagnosis of hypertension; Z86.0101 Personal history of adenomatous and serrated colon polyps | CPT/HCPCS: 96127 ==

== ENCOUNTER 2024-11-22 13:09 | Outpatient (AMB) | payer OTHER, SELFPAY ==
--- NOTE | 2024-11-22 13:20 | A.OFFPC_ITS ---
Vital Signs 11/22/24 13:23 Height 5 ft 3 in Weight 240 lb BMI 42.5 BP 142/90 H Blood Pressure Location Lt brachial Position Sitting Respiration 18 Pulse 97 Pulse Source Pulse Oximeter Temp 98.2 F Temp Source Oral Pulse Oximetry (%) 95 Oxygen Delivery Method Room Air Intake Visit Reasons: PE annual Intake Note: Pt is here today for PE. Allergies aspartame Allergy (Unknown, Verified 11/22/24 13:23) hives naproxen Allergy (Verified 11/22/24 13:23) increased heart rate parsnip Allergy (Unknown, Uncoded 11/22/24 13:23) swelling Medication List - Last Reconciled 11/22/24 by Jovita Ye MD meloxicam 15 mg PO DAILY 30 days trifluridine 1% 1 drp ophthalmic (eye) Q4H Tobacco use date assessed: 11/22/24 Dental Screening Dental Screen Date: 11/22/24 Did you have a dental visit in the last 12 months?: No Did you have a dental problem in the last 6 months where you did not have access to dental care?: No Was dental information given to patient?: Patient declined HPI PE annual HPI Details Pt presents for PE. She complains of chronic right knee pain was seen by the orthopedic diagnosed with moderate osteoarthritis and has been referred to physical therapy. Patient is established with [place] special delivery carrier for fibroid and postmenopausal bleeding with negative endometrial biopsy. Patient is planning to start regular exercise and the eat healthier diet to try to lose weight. She is not interested in GLP 1 agonist [facility] Medical History (Updated 11/22/24 @ 14:45 by Jovita Ye MD) Cervical Papanicolaou smear negative within last 12 months Elevated blood pressure reading in office without diagnosis of hypertension Primary osteoarthritis of right knee Fibroid Diverticulosis Tubular adenoma of colon BMI 40.0-44.9, adult Surgical History (Updated 11/22/24 @ 13:32 by CASIMIRO Maravilla) Hx of cholecystectomy History of tonsillectomy History of surgery History of knee surgery Family History (Updated 11/22/24 @ 13:33 by CASIMIRO Maravilla) Father Diabetes mellitus COPD (chronic obstructive pulmonary disease) Mother History of kidney cancer Maternal Grandmother Cervical cancer Social History (Reviewed 11/22/24 @ 13:32 by ADELFO Maravilla Housing: House Alcohol intake: current Alcohol intake frequency: holidays/special occasions only Patient Tobacco Use Status: Former Tobacco user e-Cigarette/Vaping Use: Never Used service: No Current occupational status: employed 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 1. Little interest or pleasure in doing things: not at all 2. Feeling down, depressed, or hopeless: not at all 3. Trouble falling or staying asleep, or sleeping too much: several days 4. Feeling tired or having little energy: not at all 5. Poor appetite or overeating: not at all 6. Feeling bad about yourself - or that you are a failure or have let yourself or your family down: not at all 7. Trouble concentrating on things, such as reading the newspaper or watching television: not at all 8. Moving or speaking so slowly that other people could have noticed. Or the opposite - being so fidgety or restless that you have been moving around a lot more than usual: not at all 9. Thoughts that you would be better off or of hurting yourself in some way: not at all Total score: 1 Depression Screening Interpretation: Negative Depression Screening Done: Yes 51523 - PHQ-9 Billing: Yes Source: Developed by Drs. Matt Shea, Ashia Lux, Ren Arellano and colleagues, with an educational cassia from [employer]. Thrive Questionnaire Date Thrive assessed: 11/22/24 I am a: Patient What is your living situation today?: I have a steady place to live Within the past 12 months, did the food you bought not last and you didn't have the money to get more?: Never true Within the past 12 months, did you worry whether your food would run out before you got money to buy more?: Never true Do you have trouble paying for medicines?: No Do you have trouble getting transportation to medical appointments?: No Do you have trouble paying your heating and electricity bill?: No Do you have trouble taking care of your child, family member or friend?: No Do you have trouble with day-to-day activities such as bathing, preparing meals, shopping, managing finances, etc.?: No Are you currently unemployed and looking for a job?: No Are you interested in more education?: Yes Please select the resources that you would like help with: None Currently or been in a relationship where the following occur: No concerns reported THRIVE Score: 0 AUDIT C Alcohol Use Questionnaire (AUDIT-C) 1. How often do you have a drink containing alcohol?: Monthly or less 2. How many drinks containing alcohol do you have on a typical day when you are drinking?: 1 or 2 3. How often do you have six or more drinks on one occasion?: Never Total Score: 1 YESIKA-7 AMB Questionnaire YESIKA-7 Date YESIKA - 7 assessed: 11/22/24 Feeling nervous, anxious, or on edge: 1 = Several days Not being able to stop or control worryin = Not at all Worrying too much about different things: 1 = Several days Trouble relaxin = Not at all Being so restless that it is hard to sit still: 0 = Not at all Becoming easily annoyed or irritable: 0 = Not at all Feeling afraid as if something awful might happen: 0 = Not at all Total YESIKA-7 score (0-4 normal; 5-9 mild; 10-14 moderate; 15-21 severe): 2 Source: Developed by Drs. Matt Shea, Ashia Lux, Ren Arellano and colleagues, with an educational cassia from [employer]. YESIKA-7 Assessment Billing YESIKA-7 Assessment Tool: YESIKA-7 Assessment 56659 Review of Systems Const All systems reviewed & are unremarkable except as noted in HPI and below Eyes Reports no additional complaints ENT Reports no additional complaints Card Reports no additional complaints Resp Reports no additional complaints GI Reports no additional complaints Reports no additional complaints Musc Reports no additional complaints Physical exam (Primary Care) Vital Signs: Last Vital Signs Temp 98.2 F 11/22/24 13:23 Pulse 97 11/22/24 13:23 Resp 18 11/22/24 13:23 BP 142/90 H 11/22/24 13:23 Pulse Ox 95 11/22/24 13:23 Oxygen Delivery Method Room Air 11/22/24 13:23 BMI result Body Mass Index 42.5 Tobacco/Smoking Status: Tobacco use Status Tobacco use date assessed 11/22/24 11/22/24 13:24 Patient Tobacco Use Status Former Tobacco user 11/22/24 13:24 e-Cigarette/Vaping Use Never Used 11/22/24 13:20 PHQ-9: PHQ-9 Score PHQ-9: Total score 1 11/22/24 13:24 Depression Screening Interpretation: Negative Thrive Assessment: Date of Thrive Assessment Date Thrive assessed 11/22/24 11/22/24 13:24 Currently or been in a relationship where the following occur: No concerns repor bri Const General: no acute distress HENMT Head: Yes normal to inspection Ears: hearing grossly normal bilaterally Face and sinus: Yes normal facial exam Eyes General: appearance normal, both eyes and all related structures Neck Neck: Yes no lymphadenopathy and Yes supple Resp Effort & Inspection: normal respiratory effort Auscultation: clear to auscultation bilaterally Cardio Rhythm: regular rhythm Heart sounds: S1 normal heart sound present and S2 normal heart sound present GI Inspection: Yes normal to inspection Palpation (GI): Soft to palpation and Rebound tenderness present Percussion: Yes normal to percussion Coding Level of Care Code Est Pt Prev Care 40-64y(81862) Diagnoses BMI 40.0-44.9, adult Z68.41 Annual physical exam Z00.00 Tubular adenoma of colon D12.6 Primary osteoarthritis of right knee M17.11 Elevated blood pressure reading in office without diagnosis of hypertension R03.0 Additional Codes YESIKA-7 Assessment Billing - YESIKA-7 Assessment Tool: YESIKA-7 Assessment 42242 ([id number]) PHQ-9 - 92341 - PHQ-9 Billing: Yes ([id number]) Assessment & Plan Assessment & Plan (1) BMI 40.0-44.9, adult: Code(s): Z68.41 - Body mass index [BMI] 40.0-44.9, adult Category: Medical Plan: Decreasing caloric intake increasing physical activity discussed with the patient. She is not interested in trying GLP 1 agonist. (2) Annual physical exam: Code(s): Z00.00 - Encounter for general adult medical examination without abnormal findings Category: Medical Plan: Well-balanced diet regular physical activity weight loss discussed with the patient she is established with special delivery carrier for a Pap smear is up-to-date with the [facility] and had a colonoscopy in July of 2023. Patient has been trying to get a appointment for repeat colonoscopy for the last 6 months. She will call again (3) Tubular adenoma of colon: Comment: 1 large polyp 2.8 to 3 cm and 2 small polyps, all tubular adenomas colonoscopy in 07/2023 , Dr. Murphy, repeat 6-12 months, [facility] Code(s): D12.6 - Benign neoplasm of colon, unspecified Category: Medical Plan: Patient is overdue for repeat colonoscopy. She will contact GI office (4) Primary osteoarthritis of right knee: Comment: XR moderate OA 09/2024, [facility] ortho Code(s): M17.11 - Unilateral primary osteoarthritis, right knee Category: Medical Plan: Patient will start physical therapy (5) Elevated blood pressure reading in office without diagnosis of hypertension: Code(s): R03.0 - Elevated blood-pressure reading, without diagnosis of hypertension Category: Medical Plan: Decreasing caloric intake increasing physical activity weight loss discussed with the patient. Patient will return for nurse visit for blood pressure check in 1 month Orders: Orders Lipid Panel 6 Months D12.6 - Benign neoplasm of colon, unspecified, M17.11 - Unilateral primary osteoarthritis, right knee, Z00.00 - Encounter for general adult medical examination without abnormal findings, Z68.41 - Body mass index [BMI] 40.0-44.9, adult Vitamin D 25-OH Total 6 Months D12.6 - Benign neoplasm of colon, unspecified, M17.11 - Unilateral primary osteoarthritis, right knee, Z00.00 - Encounter for general adult medical examination without abnormal findings, Z68.41 - Body mass index [BMI] 40.0-44.9, adult Comprehensive [place]. Panel Fast 6 Months D12.6 - Benign neoplasm of colon, unspecified, M17.11 - Unilateral primary osteoarthritis, right knee, Z00.00 - Encounter for general adult medical examination without abnormal findings, Z68.41 - Body mass index [BMI] 40.0-44.9, adult Complete Blood Count Auto Diff 6 Months D12.6 - Benign neoplasm of colon, unspecified, M17.11 - Unilateral primary osteoarthritis, right knee, Z00.00 - Encounter for general adult medical examination without abnormal findings, Z68.41 - Body mass index [BMI] 40.0-44.9, adult TSH reflex Free T4 6 Months D12.6 - Benign neoplasm of colon, unspecified, M17.11 - Unilateral primary osteoarthritis, right knee, Z00.00 - Encounter for general adult medical examination without abnormal findings, Z68.41 - Body mass index [BMI] 40.0-44.9, adult
[2024-11-22 13:23] VITALS: BP 142/90; PULSE 97; RESP 18; TEMP 36.8; O2SAT 95; BMI 42.5
--- OUTSIDE RECORDS SUMMARY | 2024-11-22 13:45 | XMS_ITS | Encounter Summary ---
Author Organization [facility] Address [address] [place] [address] Care Team Providers Care Clinical Exercise Physiologist Name Role Phone Navi Gustafson MD Primary Care Provider Gaudencio Ma, Pcp Primary Care Provider [place] vásquez Encounter Details Date Type Department Care Team Description 06/16/2016 Refill OBGYN - [place] [address] [place] [address] Bia Galicia CNM Social History Tobacco Use Types Packs/Day Years Used Date Smoking Tobacco: Former Cigarettes 12 Q uit: 05/22/2002 Smokeless Tobacco: Never Alcohol Use Standard Drinks/Week Comments Yes 0 (1 standard drink = 0.6 oz pur e alcohol) rarely Sex Assigned at Date Recorded Not on file documented as of this encounter Miscellaneous Notes * Telephone Encounter - Erinn Bolton M.A. - 06/17/2016 9:00 AM ESTFrom: Alyssa Andres To: Bia Galicia CNM Sent: 06/16/2016 11:33 PM EST Subject: Medication Renewal Request Original authorizing provider: GERI Doe would like a refill of the following medications: norethindrone-ethinyl estradiol (GILDESS FE 06/12) 1-20 MG-MCG per tablet [Bia Galicia CNM] Preferred pharmacy: [email or web address] - [address] Comment: Please refill one month worth of Gildess FE 06/12. My appointment is on July 08, and I will run out before the full year prescription can be renewed. documented in this encounter Plan of Treatment Not on file documented as of this encounter Visit Diagnoses Not on filedocumented in this encounter Care Teams Clinical Exercise Physiologist Relationship Specialty Start Date End Date Navi Gustafson MD PCP - General Internal Medicine 11/10/11 11/30/18 [facility], Pcp PCP - General Internal Medicine 12/01/18 documented as of this encounter
== END 2024-11-22 14:23 | disposition home or self-care (01) ==
LOC: HO.HMCC 13:09
PROVIDERS: PCP Internal Medicine; Visit Provider Internal Medicine
DX: Z68.41 Body mass index [BMI] 40.0-44.9, adult (principal); Z00.00 Encounter for general adult medical examination without abnormal findings; D12.6 Benign neoplasm of colon, unspecified; M17.11 Unilateral primary osteoarthritis, right knee; R03.0 Elevated blood-pressure reading, without diagnosis of hypertension

== ENCOUNTER 2024-11-27 10:20 | Emergency (ER) | payer OTHER, SELFPAY ==
--- NOTE | ~2024-11-27 | CT_ITS ---
EXAMINATION: CT ABDOMEN AND PELVIS WITH CONTRAST CLINICAL INFORMATION: Suprapubic pain, right CVA tenderness, diarrhea DLP: 925 mGY*cm COMPARISON: Pelvic ultrasound June 06, 2024 TECHNIQUE: Multidetector volumetric images were obtained from the superior aspect of the liver through the pubic symphysis following administration 65 mL of Omnipaque 350 intravenous contrast. Sagittal and coronal reformatted images were obtained on the technologist's workstation. Oral contrast: No This CT examination was performed using dose optimization techniques as appropriate, variously including the following: *Automated exposure control *Adjustment of mA and/or kV according to patient size (this includes techniques or standardized protocols for targeted exams where dose is matched to indication/reason for exam; i.e. extremities or head) *Use of iterative reconstruction technique FINDINGS: LUNG BASES: The visualized lung bases are unremarkable. LIVER, GALLBLADDER, AND BILIARY TREE: The liver is normal in size, shape, and attenuation. No focal hepatic lesion or biliary ductal dilatation is present. Gallbladder is surgically absent. There are clips in the gallbladder fossa. PANCREAS: Unremarkable. SPLEEN: Unremarkable. ADRENAL GLANDS: Unremarkable. KIDNEYS AND URETERS: Moderate left hydronephrosis is evident extending down to the left ureterovesicular junction stone that measured 1 x 3 mm. There is subtle right hydronephrosis and a stone in the distal ureter 2 mm in diameter. It is located 2 cm proximal to the ureterovesicular junction. Nonobstructing stone in the lower left kidney measures 6 x 11 mm. BLADDER: There are no stones in the bladder and wall thickening. GASTROINTESTINAL TRACT: Pseudodiverticula are present in the descending and sigmoid colon without inflammatory changes. The appendix is within normal limits. ABDOMINAL WALL: Very small fat-containing umbilical hernia is noted. LYMPH NODES: Normal. VASCULAR: Minimal atherosclerotic ossifications are present. PELVIC VISCERA: Uterus and ovaries are unremarkable. There is no free fluid. OSSEOUS STRUCTURES: Chronic pars defect is present L5 with grade 1 anterolisthesis, severe displacement, and vacuum phenomena. CT/CT abdomen pelvis w IV con IMPRESSION: Moderate left hydronephrosis and a 3 mm left UVJ stone. Minimal right hydronephrosis and 2 mm distal ureter stone. Nonobstructing 6 x 11 mm stone in the lower left kidney. L5-S1 demonstrates grade 1 anterolisthesis and chronic L5 pars defect. Diverticulosis of the descending and sigmoid colon without sign of infection Fleischner guidelines were followed. Electronically signed by: Shravan Sims MD 11/27/2024 01:51 PM EDT
[2024-11-27 10:32] VITALS: BP 180/88; PULSE 87; RESP 18; TEMP 36.6; O2SAT 97; BMI 43.5
[2024-11-27 11:05] LABS: MANUAL DIFF FLAG NO
[2024-11-27 11:07] LABS: Appearance Urine Clear; Glucose Urine UA Negative (Negative); PH 5.5 (5.0-9.0); Specific Gravity - Urine 1.025 (1.005-1.025); UMIC TRIGGER UACC YES
[2024-11-27 11:09] LABS: Hematocrit 36.9 % (37.0-47.0); Hemoglobin 12.6 g/dl (12.0-16.0); Imm Gran Abs Auto 0.02 X10*3/uL (0.00-0.03); Imm Gran Pct Auto 0.3 % (0.0-0.4); Lymphocytes Absolute Auto 2.4 X10*3/uL (1.2-4.9); Mean Corpuscular HGB Conc 34.1 g/dl (31.0-35.0); Mean Corpuscular Hemoglobin 29.4 pg (27.0-33.0); Mean Corpuscular Volume 86.0 fL (80.0-98.0); NRBC Abs Auto 0.000 X10*3/uL (0.0-0.012); NRBC Pct Auto 0.0 /100WBC (0.0-0.2); Platelet Count 316 X10*3/uL (160-400); Red Blood Count 4.29 X10*6/uL (4.20-5.50); White Blood Count 7.1 X10*3/uL (4.8-10.8)
[2024-11-27 11:24] LABS: Alanine Aminotransferase 22 U/L (0-31); Albumin Level 4.3 g/dL (3.5-5.0); Alkaline Phosphatase 101 U/L (39-117); Anion Gap 12 (12-20); Aspartate Amino Transferase 17 U/L (5-31); Blood Urea Nitrogen 16 mg/dL (9-16); Calcium 9.3 mg/dL (8.4-10.2); Carbon Dioxide 24 mmol/L (22-29); Chloride 111 mmol/L (96-108); Creatinine Clr Calc Pharmacy 117.0; Estimated Glomerular Filt Rate > 60; Potassium 4.2 mmol/L (3.3-5.1); Sodium 143 mmol/L (135-145); Total Protein 6.8 g/dL (6.5-8.0)
--- NOTE | 2024-11-27 11:42 | ED_ITS ---
HPI - Female Genitourinary General Chief complaint: Urogenital-Female Stated complaint: Kidney stones? Time Seen by Provider: 11/27/24 11:28 Source: patient and RN notes reviewed Mode of arrival: ambulatory Limitations: no limitations History of Present Illness ED Provider: Ashtyn Burgess PA-C HPI Narrative: This is a 54-year-old female, with a past medical history of kidney stones, diverticulosis, fibroids, and Fabian's cyst, who presents emergency department with concerns of low back pain, lower abdominal cramping, urinary frequency, urgency, and dysuria for the last several days. Patient states that several weeks ago she had urinary symptoms and thought she had a urinary tract infection, she was seen at an urgent care where she started on antibiotics however was told to discontinue as she did not have a urinary tract infection. Patient states that she was taking meloxicam, states that she discontinue taking this several days ago as this was not helping her symptoms. She also states that she took a dose of azo, which worsened her abdominal pain. She does endorse subjective fevers, no chills. No chest pain or shortness of breath. Endorsing nausea, no vomiting. Also reporting diarrhea, no constipation. No bloody or black stool. No other complaints or concerns at this time. MD elicited complaint: dysuria, UTI and difficulty urinating Onset (ago): day(s) Severity: moderate Quality of pain: aching Consistency: constant Vaginal discharge: none Vaginal bleeding: none Urinary symptoms: Dysuria, Urgency, Frequency, Difficulty Urinating and Flank Pain Exacerbating factors: urination Relieving factors: none Associated symptoms: abdominal pain Treatment prior to arrival: none Sexual activity: No Patient : No Related Data Previous Rx's ?Medication ?Instructions ?Recorded meloxicam 15 mg tablet 15 mg PO DAILY 30 days #30 t abs 11/06/24 trifluridine 1 % eye drops 1 drp ophthalmic (eye) Q4H #7.5 mL 11/11/24 acetaminophen 500 mg tablet 500 - 1,000 mg (1 - 2 x 50 0 mg) PO 11/27/24 (Tylenol Extra Strength) Q6H PRN pain #30 tabs cefuroxime axetil 500 mg tablet 500 mg PO BID 7 days # 14 tabs 11/27/24 ketorolac 10 mg tablet 10 mg PO Q8H PRN severe pain 11/27/24 (scale score 7-10) 3 days #9 tabs prednisone 20 mg tablet 20 mg PO DAILY 5 days #5 tab s 11/27/24 tamsulosin 0.4 mg capsule 0.4 mg PO DAILY 14 days #14 caps 11/27/24 Allergies Allergy/AdvReac Type Severity Reaction Status Date / Time aspartame Allergy Unknown hives Verified 11/27/24 10:34 naproxen Allergy increased Verified 11/27/24 10:34 heart rate parsnip Allergy Unknown swelling Uncoded 11/27/24 10:34 Review of Systems 2 Review of Systems: Yes all other systems are reviewed and are negative Constitutional: Constitutional: Reports as per [facility] Past Medical History Attestation statement: The following information was validated with the patient. Medical History Cervical Papanicolaou smear negative within last 12 months Elevated blood pressure reading in office without diagnosis of hypertension Primary osteoarthritis of right knee Fibroid Diverticulosis Tubular adenoma of colon BMI 40.0-44.9, adult Surgical History Hx of cholecystectomy History of tonsillectomy History of surgery History of knee surgery Family History Family History Father Diabetes mellitus COPD (chronic obstructive pulmonary disease) Mother History of kidney cancer Maternal Grandmother Cervical cancer Social History Social History Housing: House Alcohol intake: current Alcohol intake frequency: holidays/special occasions only Patient Tobacco Use Status: Former Tobacco user Smoked in Last 30 Days: No e-Cigarette/Vaping Use: Never Used Use of substances other than those prescribed or required for medical reasons: No Advance Directives: No Advance Directives Information Provided: Yes Patient : No service: No Current occupational status: employed 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 Cognitive needs: No Hearing needs: No Vision needs: Yes Physical Exam 2 Vital Signs: Vital Signs: Last Vital Signs Temp 98.4 F 11/27/24 12:20 Pulse 68 11/27/24 14:03 Resp 16 11/27/24 12:20 BP 154/86 H 11/27/24 14:03 Pulse Ox 97 11/27/24 10:32 O2 Del Method Room Air 11/27/24 10:32 BMI result Body Mass Index 43.5 Const: General: cooperative, comfortable and no acute distress O rientation/consciousness: patient oriented x3 Limitations: no limitations HEENT: Head: Yes normal to inspection, Yes normocephalic and Yes atraumatic Ears: hearing grossly normal bilaterally General nose exam: Normal external nose present Face and sinus: Yes normal facial exam Mouth: Normal oral and palatal mucosa present, oropharynx normal and moist mucous membranes Throat: Yes posterior oropharynx normal Eyes: General: appearance normal, both eyes and all related structures E yelids: Yes eyelids normal Conjunctivae: conjunctivae normal Sclerae: s clerae normal Pupils: Equal, round and reactive pupils present EOM: EOMs intact bilaterally Neck: Neck: Yes normal visual inspection, Yes full ROM and Yes no lymphadenopathy Lymphatic: no lymphadenopathy noted Chest: Chest palpation & inspection: normal inspection of the chest Resp: Effort & Inspection: normal respiratory effort and able to speak in complete sentences Auscultation: clear to auscultation bilaterally, no crackles, no rales, no rhonchi and no wheezes Cardio: Rate: regular rate Rhythm: regular rhythm Heart sounds: S1 normal heart sound present and S2 normal heart sound present GI: Other: Patient with tenderness palpation in the suprapubic region, and right lower quadrant. Obese abdomen, abdomen is soft, otherwise nontender. Inspection: Yes normal to inspection Skin: General skin exam: no rashes or lesions noted Trauma: no lacerations or abrasions Wounds: no wounds Neuro: General: patient oriented x3 and moves all extremities Cranial nerves: Yes Equal, round and reactive pupils present Extrem: General: Yes normal to inspection Right upper extremity: normal to inspection Left upper extremity: normal to inspection Right lower extremity: normal to inspection Left lower extremity: normal to inspection Medications Administered Discontinued Medications Generic Name Dose Route Start Last Admin Trade Name Freq PRN Reason Stop Dose Admin Ceftriaxone Sodium 1 gm 11/27/24 12:05 11/27/24 12:32 Ceftriaxone Sodium 1 Gm Vial IVPUSH 11/27/24 12:06 1 gm ONCE ONE Administration Sodium Chloride 1,000 mls @ 999 mls/hr 11/27/24 12:02 11/27/24 13:39 Ns IV 11/27/24 13:02 Infused .Q1H1M ONE Infusion Sodium Chloride 1,000 mls @ 999 mls/hr 11/27/24 13:13 11/27/24 14:20 Ns IV 11/27/24 14:13 Infused .Q1H1M ONE Infusion Iohexol 100 ml 11/27/24 13:14 11/27/24 13:17 Iohexol 350 Mg/Ml 100 Ml Infus..Btl IV 11/27/24 13:15 85 ml ONCE ONE Administration Ketorolac Tromethamine 15 mg 11/27/24 12:01 11/27/24 12:46 Ketorolac Tromethamine 15 Mg/Ml Vial IVPUSH 11/27/24 12:02 15 mg ONCE ONE Administration Ondansetron HCl 4 mg 11/27/24 12:01 11/27/24 12:46 Ondansetron Hcl 4 Mg/2 Ml Vial IVPUSH 11/27/24 12:02 4 mg ONCE ONE Administration Medical Decision Making Medical Decision Making MDM Narrative: This is a 54-year-old female who presents emergency department for evaluation of urinary symptoms, low back pain, and diarrhea. On arrival, patient's blood pressure elevated at 180/88, all other vital signs within normal limits. She is afebrile. Patient with right-sided CVA tenderness, and suprapubic pain as well as right lower quadrant pain. Differential diagnoses include pyelonephritis, UTI, nephrolithiasis, diverticulitis, diverticulosis. Given patient is also having diarrhea, with right lower quadrant pain, CT abdomen and pelvis with IV contrast was ordered. Plan: Labs, UA, IV antibiotics, IV fluids, IV Toradol, and IV Zofran. Labs were obtained prior to my evaluation, she has no leukocytosis, stable H&H, chemistry with no significant electrolyte derangement, no evidence of CAROL. Urine with proteinuria, moderate blood, leuk esterases, rbc's, and wbc's. initial lactic 2.2. She already is receiving fluids and antibiotic 1512 - Repeat lactic .9. CT scan revealing Moderate left hydronephrosis and a 3 mm left UVJ stone. Minimal right hydronephrosis and 2 mm distal ureter stone. Nonobstructing 6 x 11 mm stone in the lower left kidney. Discussed overall workup with Dr. Hunter, urology. Dr. Hunter recommending that the stone is crowding and passing into the bladder, recommending 5 days of prednisone 20 mg, 14 days of tamsulosin, and naproxen and his nurse will triage her tomorrow. Patient has an adverse reaction to naproxen however she did receive Toradol here in the department today which she tolerated well and helps with her pain. Will discharged on small course of Toradol to only be used as needed for severe pain only. Tylenol also prescribed. I am also continuing on the antibiotic as urine appears to be infected to me. I discussed strict return precautions, patient understands and agrees with plan, patient stable for discharge. Differential Diagnosis Differential Diagnoses: The differential diagnosis associated with the presentation includes Consult Healthcare Provider Management of the patient was discussed with: [employer] Dr. Hunter, urology Lab Data MDM Lab Attestation statement: I reviewed the patient's lab results. See MDM and course 11/27/24 10:57 11/27/24 10:57 Labs: Lab Results 11/27/24 11/27/24 11/27/24 Range/Units 10:46 10:57 12:15 WBC 7.1 (4.8-10.8) X10*3/uL RBC 4.29 (4.20-5.50) X10*6/uL Hgb 12.6 (12.0-16.0) g/dl Hct 36.9 L (37.0-47.0) % MCV 86.0 (80.0-98.0) fL MCH 29.4 (27.0-33.0) pg MCHC 34.1 (31.0-35.0) g/dl RDW 13.6 (11.0-16.0) % Plt Count 316 (160-400) X10*3/uL MPV 8.8 L (9.4-12.3) fL Immature Gran % (Auto) 0.3 (0.0-0.4) % Neut % (Auto) 53.0 (45-73) % Lymph % (Auto) 33.5 (20-40) % [place] % (Auto) 8.7 (2-11) % Eos % (Auto) 3.9 (0-4) % Baso % (Auto) 0.6 (0-2) % Lymph # (Auto) 2.4 (1.2-4.9) X10*3/uL [place] # (Auto) 0.6 (0.1-1.2) X10*3/uL Eos # (Auto) 0.3 (0.0-0.4) X10*3/uL Baso # (Auto) 0.0 (0.0-0.2) X10*3/uL Abs Immat Gran (auto) 0.02 (0.00-0.03) X10*3/uL Absolute Neuts (auto) 3.8 (2.0-8.3) x10*3/uL Absolute Nucleated RBC 0.000 (0.0-0.012) X10*3/uL Nucleated RBC % (auto) 0.0 (0.0-0.2) /100WBC Sodium 143 (135-145) mmol/L Potassium 4.2 (3.3-5.1) mmol/L Chloride 111 H (96-108) mmol/L Carbon Dioxide 24 (22-29) mmol/L Anion Gap 12 (12-20) BUN 16 (9-16) mg/dL Creatinine 0.66 (0.5-1.4) mg/dL Estim Creat Clear Calc 117.0 Estimated GFR > 60 Random Glucose 102 (60-115) mg/dL Lactic Acid 2.2 H* (0.5-2.0) mmol/L Calcium 9.3 (8.4-10.2) mg/dL Total Bilirubin 0.3 (0.0-1.0) mg/dL AST 17 (5-31) U/L ALT 22 (0-31) U/L Alkaline Phosphatase 101 (39-117) U/L Total Protein 6.8 (6.5-8.0) g/dL Albumin 4.3 (3.5-5.0) g/dL Urine Color Yellow Urine Appearance Clear Urine pH 5.5 (5.0-9.0) Ur Specific [place] 1.025 (1.005-1.025) Urine Protein 100 (2+) H (Neg-Trace) mg/dL Urine Glucose (UA) Negative (Negative) mg/dL Urine Ketones Negative (Negative) mg/dL Urine Blood Moderate (2+) H (Negative) Urine Nitrite Negative (Negative) Ur Leukocyte Esterase Small (1+) H (Negative) Urine RBC >20 H (0-2) /HPF Urine WBC 21-50 H (0-5) /HPF Ur Squamous Epith Cells 0-2 (0-2) /HPF Urine Bacteria None Seen (None Seen) Hyaline Casts 0-2 (0-2) /LPF Radiology Impression Discussion of test interpretation with radiology: I have reviewed the radiologist's reading. Radiologist Impression: COMPARISON: Pelvic ultrasound June 06, 2024 TECHNIQUE: Multidetector volumetric images were obtained from the superior aspect of the liver through the pubic symphysis following administration 65 mL of Omnipaque 350 intravenous contrast. Sagittal and coronal reformatted images were obtained on the technologist's workstation. Oral contrast: No This CT examination was performed using dose optimization techniques as appropriate, variously including the following: *Automated exposure control *Adjustment of mA and/or kV according to patient size (this includes techniques or standardized protocols for targeted exams where dose is matched to indication/reason for exam; i.e. extremities or head) *Use of iterative reconstruction technique FINDINGS: LUNG BASES: The visualized lung bases are unremarkable. LIVER, GALLBLADDER, AND BILIARY TREE: The liver is normal in size, shape, and attenuation. No focal hepatic lesion or biliary ductal dilatation is present. Gallbladder is surgically absent. There are clips in the gallbladder fossa. PANCREAS: Unremarkable. SPLEEN: Unremarkable. ADRENAL GLANDS: Unremarkable. KIDNEYS AND URETERS: Moderate left hydronephrosis is evident extending down to the left ureterovesicular junction stone that measured 1 x 3 mm. There is subtle right hydronephrosis and a stone in the distal ureter 2 mm in diameter. It is located 2 cm proximal to the ureterovesicular junction. Nonobstructing stone in the lower left kidney measures 6 x 11 mm. BLADDER: There are no stones in the bladder and wall thickening. GASTROINTESTINAL TRACT: Pseudodiverticula are present in the descending and sigmoid colon without inflammatory changes. The appendix is within normal limits. ABDOMINAL WALL: Very small fat-containing umbilical hernia is noted. LYMPH NODES: Normal. VASCULAR: Minimal atherosclerotic ossifications are present. PELVIC VISCERA: Uterus and ovaries are unremarkable. There is no free fluid. OSSEOUS STRUCTURES: Chronic pars defect is present L5 with grade 1 anterolisthesis, severe displacement, and vacuum phenomena. CT/CT abdomen pelvis w IV con IMPRESSION: Moderate left hydronephrosis and a 3 mm left UVJ stone. Minimal right hydronephrosis and 2 mm distal ureter stone. Nonobstructing 6 x 11 mm stone in the lower left kidney. L5-S1 demonstrates grade 1 anterolisthesis and chronic L5 pars defect. Diverticulosis of the descending and sigmoid colon without sign of infection Fleischner guidelines were followed. Electronically signed by: Shravan Sims MD 11/27/2024 01:51 PM EDT RP Discharge Plan Discharge Clinical Impression: Bilateral kidney stones Patient Disposition: Home, Self-Care Instructions: Kidney Stones (ED) Additional Instructions: You were seen in the emergency department today and you have multiple kidney stones. Your CT scan was reviewed by our urologist, Dr. Hunter, who recommends several different medications. Prednisone 20 mg for the next 5 days. This is a steroid that can help decrease inflammation. Flomax is a medication that can help dilate the ureters, allowing the kidney stone to easily pass. Naproxen was recommended to you however given your adverse reaction to naproxen, I am giving you several doses of Toradol. Toradol as a strong anti- inflammatory, please only use sparingly and as needed. Do not mix this with ibuprofen/aspirin/meloxicam. If you continue to have pain, you may take Tylenol. Zofran is a medication that can help with nausea, take only as needed. Cefuroxime is a antibiotic, please take this as prescribed. You already received your dose of an antibiotic here in the emergency department today, you can resume this tomorrow. You should receive a phone call from the urology office to set up a follow-up appointment. If you do not hear back from them by the end of this week, you may contact their office, he you will see their contact information below. If any new or worsening symptoms occur including but not limited to high fevers, worsening pain, inability to eat or drink secondary to nausea and vomiting, severe chest pain or shortness of breath, please seek emergent care. Prescriptions: New prednisone 20 mg tablet 20 mg PO DAILY 5 Days Qty: 5 0RF ketorolac 10 mg tablet 10 mg PO Q8H PRN (Reason: severe pain (scale score 7-10)) 3 Days Qty: 9 0RF Rx Instructions: Patient tolerated Toradol well in ED on 11/27/2024 tamsulosin 0.4 mg capsule 0.4 mg PO DAILY 14 Days Qty: 14 0RF cefuroxime axetil 500 mg tablet 500 mg PO BID 7 Days Qty: 14 0RF acetaminophen [Tylenol Extra Strength] 500 mg tablet 500 - 1,000 mg PO Q6H PRN (Reason: pain) Qty: 30 0RF No Action meloxicam 15 mg tablet 15 mg PO DAILY 30 Days Qty: 30 3RF trifluridine 1 % drops 1 drp ophthalmic (eye) Q4H Qty: 7.5 0RF Rx Instructions: administer 9 doses per day while awake Referrals: [facility] [Provider Group, Urology] Print Language: Albanian
[2024-11-27 11:47] LABS: UACC Culture Trigger YES
[2024-11-27 12:20] VITALS: BP 176/90; PULSE 76; RESP 16; TEMP 36.9
[2024-11-27] MEDS: iohexoL 350 MG/ML 100 ML INFUS..BTL IV (13:17)
[2024-11-27 14:03] VITALS: BP 154/86; PULSE 68
[2024-11-27 14:19] LABS: Reflex Lactate? Lactic Acid Added
[2024-11-27 14:50] VITALS: BP 158/84; PULSE 74; O2SAT 99
[2024-11-27 15:01] LABS: ~Lactic Acid-LAB USE ONLY 0.9 mmol/L (0.5-2.0)
[2024-11-27 15:40] VITALS: BP 158/84; PULSE 74; RESP 18; TEMP 36.8; O2SAT 99
== END 2024-11-27 15:51 | disposition home or self-care (01) ==
PROVIDERS: Physician Assistant Medical; Emergency Provider Emergency Medicine; PCP Internal Medicine
DX: N20.0 Calculus of kidney (principal); R10.2 Pelvic and perineal pain; Z87.891 Personal history of nicotine dependence; R35.0 Frequency of micturition; M54.50 Low back pain, unspecified; R30.0 Dysuria; R11.0 Nausea; Z79.899 Other long term (current) drug therapy
CPT/HCPCS: 36415; 74177; 80053; 81001; 83605; 85025; 87040; 87086; 96361; 96374; 96375; 99284; 99285; J0696; J1885; J2405; Q9967

== ENCOUNTER → 2024-11-27 12:01 | Outpatient (BNV) | payer OTHER, SELFPAY | PROVIDERS: Emergency Provider Emergency Medicine; PCP Internal Medicine; Visit Provider Radiology Diagnostic Radiology | DX: N13.2 Hydronephrosis with renal and ureteral calculous obstruction (principal); K57.30 Diverticulosis of large intestine without perforation or abscess without bleeding | CPT/HCPCS: 74177 ==

== ENCOUNTER 2024-11-28 09:25 | Outpatient (AMB) | payer OTHER, SELFPAY ==
--- NOTE | 2024-11-28 09:33 | MHC.OFFVIS ---
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 - History of nephrolithiasis 15 years ago. - Current symptoms: urinary frequency and pressure without pain. - Imaging shows a stone near the bladder and another in the kidney. - Medications: prednisone, Flomax, naprosyn, ibuprofen. - Advised to maintain high fluid intake. - Follow-up call scheduled nursing - ESWL discussed for left kidney stone. [facility] Medical History Cervical Papanicolaou smear negative within last 12 months Elevated blood pressure reading in office without diagnosis of hypertension Primary osteoarthritis of right knee Fibroid Diverticulosis Tubular adenoma of colon BMI 40.0-44.9, adult Surgical History Hx of cholecystectomy History of tonsillectomy History of surgery History of knee surgery Family History Father Diabetes mellitus COPD (chronic obstructive pulmonary disease) Mother History of kidney cancer Maternal Grandmother Cervical cancer Social History Housing: House Alcohol intake: current Alcohol intake frequency: holidays/special occasions only Patient Tobacco Use Status: Former Tobacco user e-Cigarette/Vaping Use: Never Used service: No Current occupational status: employed 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 Cognitive needs: No Hearing needs: No Vision needs: Yes Female Reproductive History Menstrual Age of Menarche: 12 Review of Systems Const Denies chills and Denies fever(s) Card Reports no additional complaints and Denies syncope Resp Denies cough GI Denies abdominal pain and Denies heartburn Reports as per HPI and Denies change in libido Neuro Denies syncope Psych Denies change in libido Endo Denies change in libido Physical Exam Const General: cooperative, healthy appearing, comfortable and no acute distress Orientation/consciousness: patient oriented x3 HEENT Face and sinus: Yes normal facial exam Mouth: moist mucous membranes Neck Neck: Yes normal visual inspection, Yes full ROM and Yes trachea midline Chest Chest palpation & inspection: normal inspection of the chest Resp Effort & Inspection: normal respiratory effort, able to speak in complete sentences and no respiratory distress GI Inspection: Yes normal to inspection Back/Spine/Pelvis Cervical Spine: normal cervical lordosis Thoracic/Lumbar Spine: thoracic and lumbar spine normal to inspection Skin General skin exam: no rashes or lesions noted Neuro General: patient oriented x3, gait normal, tone normal and moves all extremities Extrem General: Yes normal to inspection and Yes capillary refill normal Assessment & Plan Assessment & Plan (1) Nephrolithiasis: Code(s): N20.0 - Calculus of kidney Category: Medical Plan Patient informed verbally consented to the use of an ambient scribe 1. Nephrolithiasis (Kidney Stones) Maintain high fluid intake. Prescribed prednisone and Flomax for stone passage. Pain management includes naprosyn and ibuprofen, with additional medication for breakthrough pain. Follow-up call scheduled to monitor stone passage. Plan for ESWL if kidney stone does not pass naturally. Extracorporeal Shock Wave Lithotripsy We discussed the nature of the decision and reasonable alternatives for performing the above surgery. Interventions include chemical dissolution, ESWL, ureteroscopy with laser lithotripsy and stent placement, PCNL. Options such as medical therapy were discussed. The relative uncertainties and benefits related to each alternate procedure were adequately discussed. General surgical risks including, but not limited to, pain, bleeding, infection, myocardial infarction, pulmonary embolus, deep vein thrombosis and cerebrovascular accident which may result in further hospitalization were discussed. Full disclosure of the procedure as well as all major risks, benefits and complications were discussed including but not limited to risks of bleeding, injury to the kidney with hematoma or kyree-hematoma, failure to fragments stone, potential for ureteric obstruction from stone passage and need for secondary procedures. There is a small long-term risk of hypertension and a question ihsan of diabetes. Success rate of fragmentation and passage is approximately 70- 75%. This is compared to the risks and benefits for ureteroscopy which has a higher success rate but is a more invasive procedure. The success rate of the procedure was discussed. Success of the procedure in the short-term does not necessarily guarantee that long-term success will be maintained. Suitable follow up will need to be maintained. The patient showed understanding of the discussion as well as the typical recovery time, and the outpatient nature of this procedure. Opportunity was given for questions. Repeat-back protocol used to confirm understanding. They wish to proceed with left ESWL Discussion Notes I discussed with the patient the presence of a kidney stone and a stone near the bladder. We reviewed the treatment plan, including prednisone and Flomax to aid stone passage, and pain management with naprosyn and ibuprofen. I explained the possibility of extracorporeal shockwave lithotripsy (ESWL) for the kidney stone if it does not pass naturally. I advised maintaining high fluid intake and scheduled a follow-up call to monitor progress. Patient Instructions - Drink plenty of fluids to help pass the stone. - Take prednisone and Flomax as prescribed. - Use naprosyn and ibuprofen for pain management. - Expect a follow-up call to check on stone passage. Patient Instructions: This note is constructed using voice recognition software. While every effort has been made to ensure accuracy experimental mechanic electrical errors may have been included. Imaging studies, laboratory and physical exam results were discussed and reviewed in detail. No major barriers to patient understanding were identified. An opportunity to ask questions regarding the treatment plan was provided. All questions were answered. The patient expressed understanding and agreement with the above treatment plan. The patient is aware they should contact our office by phone for worsening of their current condition or the appearance of new urologic symptoms. Compliance is encouraged with any medications and followup testing that is ordered. It is a privilege to participate in the urologic care of your patient. If you have any questions or concerns regarding treatment for the above conditions, or other urologic issues, please do not hesitate to contact me. The office telephone contact is [phone]. Sincerely, Dr Jaleel Hunter MD, [facility] - Urology Compassionate Specialist Care for the Genitourinary System Coding Level of Care Code New Pt Level 4 (86532) Diagnoses Nephrolithiasis N20.0
== END 2024-11-28 10:15 | disposition home or self-care (01) ==
LOC: HO.HUSH 09:26
PROVIDERS: PCP Internal Medicine; Visit Provider Urology
DX: N20.0 Calculus of kidney (principal); Z13.9 Encounter for screening, unspecified
CPT/HCPCS: 99204

== ENCOUNTER → 2024-11-28 09:25 | Outpatient (BNVA) | payer OTHER, SELFPAY | PROVIDERS: PCP Internal Medicine; Visit Provider Urology | DX: N20.0 Calculus of kidney (principal) | CPT/HCPCS: 81003 ==

== ENCOUNTER 2024-12-04 15:04 | Outpatient (REF) | payer OTHER, SELFPAY ==
--- NOTE | ~2024-12-04 | US_ITS ---
EXAMINATION: US PELVIS CLINICAL INFORMATION: Six-month follow-up of uterine leiomyoma. COMPARISON: June 06, 2024 TECHNIQUE: Ultrasound of the pelvis is performed using both transabdominal and transvaginal transducers along with Doppler. Transvaginal imaging is performed due to inadequate visualization transabdominally. FINDINGS: Uterus: The uterus is anteverted and measures 9.4 x 5.8 x 6.4 cm. Endometrial stripe is not well-demonstrated due to heterogeneity of the uterus. The uterus has a heterogeneous echotexture. Heterogeneous hypoechoic masses presumed to represent uterine leiomyomas are measured. 1. Posterior body subserosal and intramural measures 2.2 x 2.5 x 3.5 cm previously 2.7 x 2.4 x 3.3 cm. 2. Anterior right fundal subserosal and intramural is 1.6 x 1.0 x 1.4 cm presumed 1.5 x 1.2 x 1.6 cm. 3. Left fundal submucosal and intramural measuring 2.8 x 2.2 x 4.0 cm previously 2.9 x 2.0 x 2.0 cm. 4. Anterior upper body subserosal is 1.0 x 1.1 x 1.2 cm, previously not demonstrated Adnexa: The ovaries are not demonstrated on the current exam. US/US pelvic and transvaginal IMPRESSION: Numerous uterine leiomyomas. Electronically signed by: Shravan Sims MD 12/04/2024 04:11 PM EDT
== END 2024-12-04 15:05 | disposition home or self-care (01) ==
LOC: HO.HMGCX 15:04
PROVIDERS: PCP Internal Medicine; Visit Provider Advanced Practice Midwife
DX: D21.9 Benign neoplasm of connective and other soft tissue, unspecified (principal)
CPT/HCPCS: 76830; 76856

== ENCOUNTER → 2024-12-04 15:11 | Outpatient (BNV) | payer OTHER, SELFPAY | PROVIDERS: PCP Internal Medicine; Visit Provider Radiology Diagnostic Radiology | DX: D25.9 Leiomyoma of uterus, unspecified (principal) | CPT/HCPCS: 76830; 76856 ==

== ENCOUNTER 2024-12-06 07:52 | Day surgery (SDC) | payer OTHER, SELFPAY ==
[2024-12-04 09:55] VITALS: BMI 42.5
--- NOTE | 2024-12-05 13:22 | HO.ANESPROP2 ---
Documented by User: Ingrid Rodríguez NP 12/05/24 13:23 HPI - Anesthesia Eval Consult details Narrative: 54 yr old female for left lithotripsy ESW. s/p colonoscopy 07/2023 with TIVA PMFSH Active Problems Active Problems: All Active Problems Nephrolithiasis (Acute) Cervical Papanicolaou smear negative within last 12 months (Acute) Elevated blood pressure reading in office without diagnosis of hypertension (Acute) Primary osteoarthritis of right knee (Acute) Strain of right gastrocnemius muscle (Acute) Difficulty walking (Acute) Right calf pain (Acute) Leg pain, right (Acute) PMB (postmenopausal bleeding) (Acute) Pelvic pain (Acute) URI (upper respiratory infection) (Acute) Diverticulosis (Acute) Tubular adenoma of colon (Acute) Normal pelvic exam (Acute) Annual physical exam (Acute) 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) BMI 40.0-44.9, adult (Acute) Encounter for annual routine gynecological examination (Acute) Patellofemoral pain syndrome of left knee (Acute) Patellofemoral pain syndrome of right knee (Acute) Dysuria (Acute) Knee pain (Acute) Past Medical History Medical History Cervical Papanicolaou smear negative within last 12 months Elevated blood pressure reading in office without diagnosis of hypertension Primary osteoarthritis of right knee Fibroid Diverticulosis Tubular adenoma of colon BMI 40.0-44.9, adult Family History Family History Father Diabetes mellitus COPD (chronic obstructive pulmonary disease) Mother History of kidney cancer Maternal Grandmother Cervical cancer Family history of problems with anesthesia: No Surgical History Surgical History Hx of cholecystectomy History of tonsillectomy History of surgery History of knee surgery History of Problems with Anesthesia: No Social History Social History Housing: House Are you a primary pet care technician to a significant other at home: No Do you presently have visiting nurse or other home services: No Alcohol intake: current Alcohol intake frequency: holidays/special occasions only Patient Tobacco Use Status: Former Tobacco user Tobacco use type: Cigarette e-Cigarette/Vaping Use: Never Used Use of substances other than those prescribed or required for medical reasons: No Have you been hit, kicked, punched, or otherwise hurt by someone within the past year? 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 Cognitive needs: No Hearing needs: No Vision needs: Yes Meds Allergies Allergy/AdvReac Type Severity Reaction Status Date / Time aspartame Allergy Unknown hives Verified 12/06/24 08:30 naproxen Allergy increased Verified 12/06/24 08:30 heart rate parsnip Allergy Unknown swelling Uncoded 12/06/24 08:30 Exam Height,Weight and Vital Signs: Height 5 ft 3 in Weight 108.862 kg Assessment and Plan Final Anesthetic Review Family History of Problems with Anesthesia: No History of Problems with Anesthesia: No Documented by User: Jony Moore MD 12/06/24 09:31 [facility] Past Medical History Medical History Cervical Papanicolaou smear negative within last 12 months Elevated blood pressure reading in office without diagnosis of hypertension Primary osteoarthritis of right knee Fibroid Diverticulosis Tubular adenoma of colon BMI 40.0-44.9, adult Family History Family History Father Diabetes mellitus COPD (chronic obstructive pulmonary disease) Mother History of kidney cancer Maternal Grandmother Cervical cancer Surgical History Surgical History Hx of cholecystectomy History of tonsillectomy History of surgery History of knee surgery Social History Social History Housing: House Are you a primary pet care technician to a significant other at home: No Do you presently have visiting nurse or other home services: No Alcohol intake: current Alcohol intake frequency: holidays/special occasions only Patient Tobacco Use Status: Former Tobacco user Tobacco use type: Cigarette e-Cigarette/Vaping Use: Never Used Use of substances other than those prescribed or required for medical reasons: No Have you been hit, kicked, punched, or otherwise hurt by someone within the past year? 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 Cognitive needs: No Hearing needs: No Vision needs: Yes Meds Allergies Allergy/AdvReac Type Severity Reaction Status Date / Time aspartame Allergy Unknown hives Verified 12/06/24 08:30 naproxen Allergy increased Verified 12/06/24 08:30 heart rate parsnip Allergy Unknown swelling Uncoded 12/06/24 08:30 Exam Airway Mallampati Class: II TM Dist: <=3cm Neck ROM: Full Denture: Upper Heart: ok Lungs: ok Assessment and Plan Assessment Anesthesia Assessment: Anesthesia Plan Discussed and Chart Reviewed Final Anesthetic Review NPO: Yes ASA Class: III Final Preanesthetic Review: No Changes in Pt Med Stat, Meds/Allgs Chart Reviewed, Consent Obtained/Reviewed and Anes Risks/Benef Reviewed Patient Risk: Intermediate Procedure Risk: Low Anesthetic Plan Anesthetic Plan: Agree w/ Assess. and Plan and TIVA Disposition: Standard PACU
[2024-12-06] VITALS (7 sets, daily range): BP systolic 122–160; BP diastolic 70–90; PULSE 70–98; RESP 19–22; TEMP 36.5–36.8; O2SAT 95–100; BMI 44.1
--- NOTE | ~2024-12-06 | XR_ITS ---
EXAMINATION: XR ABDOMEN 1 VIEW (KUB) HISTORY: stones COMPARISON: Correlation is made with a CT of the abdomen with contrast dated 11/27/2024. FINDINGS: Two supine views of the abdomen are submitted. The bowel gas pattern is unremarkable, without evidence of mechanical obstruction. There is a 10 mm calcification in the left upper quadrant consistent with a renal calculus noted on CT. No suspicious calcifications are seen in the pelvis. There are surgical clips in the right upper quadrant. There are no abnormal soft tissue masses. The bones are intact. XR/XR KUB IMPRESSION: 10 mm left renal calculus. Electronically signed by: Matt Moore MD 12/06/2024 08:18 AM EDT
--- NOTE | 2024-12-06 08:47 | MHC.SHP ---
Pre-Procedural Eval Section A - 24 Hr Update-Section A only Date of Service: 12/06/24 The patient is an INPATIENT: No Changes since office visit: No Cold of Flu in the past 2 weeks, No New Medical Problems, No Changes in Medication and No Patient answered all questions The patient has been examined within 24 hours of the surgical procedure. The History & Physical has been completed within 30 days and I have reviewed it.: Yes Section B - Complete if H&P > 30 days Chief Complaint: Calculus of kidney Allergies: Allergies Allergy/AdvReac Type Severity Reaction Status Date / Time aspartame Allergy Unknown hives Verified 12/06/24 08:30 naproxen Allergy increased Verified 12/06/24 08:30 heart rate parsnip Allergy Unknown swelling Uncoded 12/06/24 08:30 Review of Systems Sugical H&P ROS: Negative: Constitution, Cardiovascular, Respiratory, Neurological, Psychiatric, Hem-Onc, Allergic/Immunologic, Gastrointestinal, Genitourinary, Musculoskeletal, Integumentary, Endocrine and Eyes/Ears/Nose/Throat Exam Surgical H&P Exam: Normal: HEENT, Normal: Heart, Normal: Lungs, Normal: Extremities, Normal: Abdomen, Normal: Skin and Normal: Neurological Plan Diagnosis/Plan: Unchanged (left eswl 9mm) I have reviewed the history and physical and performed a pertinent physical examination on my patient. No changes have occurred unless specified. Time Spent With Patient Time: Total time managing care of this patient today ____ minutes.
--- NOTE | 2024-12-06 09:40 | W.PM.OPN ---
Operative Note Operative Note Date of Service: 12/06/24 Narrative: PreOperative Diagnosis: Left Renal stones Post Operative Diagnosis: Left Renal stones Procedure: Left ESWL Surgeon: Dr Jaleel Hunter Anesthesia: mac/sedation Indications for procedure: The patient understands ESWL may be a staged procedure and subsequent intervention may be required based on imaging after ESWL. Quoted stone clearance rates for a solitary procedure are in the 70-80% range based primarily on stone location. They also understand there is a risk of bleeding to the kidney, infection, damage to adjacent organs, and stone migration following the procedure. - Imaging CT scan left 11 mm Procedure optimization has been performed with IV acetaminophen given in the holding area and 1 L of lactated Ringer's to be given in order to optimize the fluid-stone interface. 20 mg of IV Lasix will be given in the last 5 minutes of the procedure to optimize stone clearance. Procedure: After informed consent was verified the patient was brought to the operating room and placed in a supine position. Anesthesia was performed per protocol. Safety pause time-out was performed. Imaging was displayed in the room and laterality confirmed. ESWL was performed. The 1st 500 shocks were performed at 60 hertz. These were performed with increasing power. Once maximum power was reached the rate was increased to 180 hertz. A total of 2500 shocks were given. Targeted imaging with ultrasound/fluoroscopy showed stone smudging suggestive of disintegration. The patient tolerated the procedure well and was transferred to the recovery area upon completion. Post procedure imaging will be organized. There was no evidence for flank discoloration.
== END 2024-12-06 11:53 | disposition home or self-care (01) ==
PROVIDERS: PCP Internal Medicine; Visit Provider Urology
PROC: (CPT 50590; principal; 2024-12-06 10:10)
DX: N13.2 Hydronephrosis with renal and ureteral calculous obstruction (principal); R03.0 Elevated blood-pressure reading, without diagnosis of hypertension; D21.9 Benign neoplasm of connective and other soft tissue, unspecified; Z79.899 Other long term (current) drug therapy; Z79.52 Long term (current) use of systemic steroids; Z79.1 Long term (current) use of non-steroidal anti-inflammatories (NSAID); Z91.048 Other nonmedicinal substance allergy status; Z88.6 Allergy status to analgesic agent; Z91.018 Allergy to other foods; Z90.49 Acquired absence of other specified parts of digestive tract; Z98.890 Other specified postprocedural states; Z87.891 Personal history of nicotine dependence
CPT/HCPCS: 50590; 74018; J0131; J2003; J2704; J3010

== ENCOUNTER → 2024-12-06 07:52 | Outpatient (BNV) | payer OTHER, SELFPAY | PROVIDERS: PCP Internal Medicine; Visit Provider Urology | DX: N20.0 Calculus of kidney (principal) | CPT/HCPCS: 50590 ==

== ENCOUNTER → 2024-12-06 07:56 | Outpatient (BNV) | payer OTHER, SELFPAY | PROVIDERS: PCP Internal Medicine; Visit Provider Radiology Diagnostic Radiology | DX: N20.0 Calculus of kidney (principal) | CPT/HCPCS: 74018 ==

== ENCOUNTER 2024-12-21 09:54 | Outpatient (AMB) | payer OTHER, SELFPAY ==
--- NOTE | 2024-12-21 09:55 | MHC.OFFVIS ---
Intake Visit Reasons: TV/US follow up Outreach Professional: Outreach Professional Present Allergies aspartame Allergy (Unknown, Verified 12/06/24 08:30) hives naproxen Allergy (Verified 12/06/24 08:30) increased heart rate parsnip Allergy (Unknown, Uncoded 12/06/24 08:30) swelling Is last menstrual period known: Yes HPI Comments Details: Tele Health Visit Total time I personally spent on visit and management today: 20 minutes. Time spent included review of pertinent office notes in the electronic health record; review of laboratory and imaging results; review of personal family medical history; discussing diagnosis and plan of care with the patient; documenting the encounter in the EMR. Patient presents to discuss: Ultrasound follow up, history of multiple fibroids. She reports her pain is resolved after kidney stones were removed. She does not have any vaginal bleeding or pelvic discomfort. [facility] Medical History (Updated 12/21/24 @ 10:32 by Bia Galicia CNM) Cervical Papanicolaou smear negative within last 12 months Elevated blood pressure reading in office without diagnosis of hypertension Primary osteoarthritis of right knee Fibroid Diverticulosis Tubular adenoma of colon BMI 40.0-44.9, adult Surgical History Hx of cholecystectomy History of tonsillectomy History of surgery History of knee surgery Family History Father Diabetes mellitus COPD (chronic obstructive pulmonary disease) Mother History of kidney cancer Maternal Grandmother Cervical cancer Social History Housing: House Are you a primary before and after school daycare worker to a significant other at home: No Do you presently have visiting nurse or other home services: No Alcohol intake: current Alcohol intake frequency: holidays/special occasions only Patient Tobacco Use Status: Former Tobacco user Tobacco use type: Cigarette e-Cigarette/Vaping Use: Never Used service: No Current occupational status: employed 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 Cognitive needs: No Hearing needs: No Vision needs: Yes Female Reproductive History Menstrual Age of Menarche: 12 Review of Systems Const All systems reviewed & are unremarkable except as noted in HPI and below Endo Reports no additional complaints Physical Exam Const General: cooperative, healthy appearing and no acute distress Psych Appearance: well kempt Attitude: cooperative Thought process: Normal thought process present Telehealth Telehealth Telehealth Platform: Messagemind Location of provider rendering services: practice address Location of patient: address on file Patient Identification confirmed using: Name, : Yes Telehealth method: video Patient verbally consented to treatment: Yes Patient verbally consented to billing insurance company: Yes Patient informed of any privacy concerns related to visit: Yes Results Reviewed Results Reviewed: [facility] [place] [address] Ultrasound Report Signed Patient: Alyssa Andres MR#: [id number] : 1970 Acct:[id number] Age/Sex: 54 / F ADM Date: 12/04/24 Loc: [facility] Attending Dr: Bia Galicia CNM Ordering Physician: Bia Galicia CNM Date of Service: 12/04/24 Procedure(s): US pelvic and transvaginal Accession Number(s): [id number] cc: Jovita Ye MD; Bia Galicia CNM~ EXAMINATION: US PELVIS CLINICAL INFORMATION: Six-month follow-up of uterine leiomyoma. COMPARISON: June 06, 2024 TECHNIQUE: Ultrasound of the pelvis is performed using both transabdominal and transvaginal transducers along with Doppler. Transvaginal imaging is performed due to inadequate visualization transabdominally. FINDINGS: Uterus: The uterus is anteverted and measures 9.4 x 5.8 x 6.4 cm. Endometrial stripe is not well-demonstrated due to heterogeneity of the uterus. The uterus has a heterogeneous echotexture. Heterogeneous hypoechoic masses presumed to represent uterine leiomyomas are measured. 1. Posterior body subserosal and intramural measures 2.2 x 2.5 x 3.5 cm previously 2.7 x 2.4 x 3.3 cm. 2. Anterior right fundal subserosal and intramural is 1.6 x 1.0 x 1.4 cm presumed 1.5 x 1.2 x 1.6 cm. 3. Left fundal submucosal and intramural measuring 2.8 x 2.2 x 4.0 cm previously 2.9 x 2.0 x 2.0 cm. 4. Anterior upper body subserosal is 1.0 x 1.1 x 1.2 cm, previously not demonstrated Adnexa: The ovaries are not demonstrated on the current exam. US/US pelvic and transvaginal IMPRESSION: Numerous uterine leiomyomas. 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 Plan Counseled re: Leiomyoma: common pelvic neoplasm. Differential diagnosis-may include but not limited to- leiomyosarcoma which is a rare uterine sarcoma 3-7/100,000, difficult to distinguish from fibroids on ultrasound from uterine sarcoma's. Unlikely any single test will have a highly positive predictive value. Hysterectomy is not recommended for sole purpose of excluding malignant neoplasm. Consult for surgical exploration, medical treatment, other treatments, verses expectant management, pros and cons, risks and benefits. Expectant management follow up in 6 months, then yearly for stability. Patient prefers to proceed with expectant management. Referral to MD if indicated for level of care if indicated Report any PMB, pelvic pressure, bloating, or pain. The patient expressed understanding and agreement with the plan of care. All of her questions and concerns were addressed to the best of my ability. Insert voice recognition Orders: Orders US pelvic and transvaginal 04/16/25 D21.9 - Benign neoplasm of connective and other soft tissue, unspecified Coding Level of Care Code Tele Est Pt Level 3 (22237) Diagnoses Fibroid D21.9
== END 2024-12-21 10:56 | disposition home or self-care (01) ==
LOC: HO.HWS 09:54
PROVIDERS: PCP Internal Medicine; Visit Provider Advanced Practice Midwife
DX: D21.9 Benign neoplasm of connective and other soft tissue, unspecified (principal)
CPT/HCPCS: 99213

== ENCOUNTER 2025-01-16 16:00 | Outpatient (RCR) | payer OTHER, SELFPAY ==
--- NOTE | 2024-12-05 08:11 | MHC.PT.EP ---
[facility] [place] Office [place] Office [place] Office [address] Janell Weston [address] [phone] F: [phone] F: [phone] F: [phone] F: [phone] Physical Therapy Plan of Care Date of Evaluation: 12/04/24 Date of Surgery: Diagnosis: This is a 54 yo female presenting to skilled PT with a script for strain of R gastroc muscle. Assessment: This is a 54 yo female presenting to skilled PT with a script for strain of R gastroc muscle. Patient reporting increasing knee pain on the R this past year with increasing her activity with goals of weight loss (walking on treadmill and trails with a walking club). However, symptoms were exacerbated around Mother's day when she was reaching up high at her trellis in her garden. She felt a pop as she raised up onto her toes located ? R gastroc muscle belly but she is unsure. Since then she has had increased medial knee pain described as a stabbing feeling, like a bolt ; general knee joint stiffness; posterior knee pain across the entire knee joint described as achy and B gastroc pin point tenderness and Randell horse pain in B gastrocs. Additionally, she now feels like her knee will give out. Following the injury, she went to urgent care who assessed her for a blood clot (which was negative) and referred her to her PCP. When she called her PCP, they sent her to the ED for evaluation. In the ED they focused on her knee more and thought she may have ruptured her bursa and referred her to ortho. Patient reports ortho felt a knot in her gastroc and referred her to PT for further management. She does not have a follow up appointment scheduled with them. Patient reporting ongoing arthritis for many years now however this has not bothered her much. She also reports that she started to exercise more this past year including walking on trails and the treadmill. Also of note she reports B knee surgery at the age of 16 but is unsure when she had (reports it had something to do with prevention of patellar dislocation, ? a lateral release). She has not had a patella dislocation since the surgery. She is now walking with a straight cane. She was using 2 different knee braces/sleeves prior to all of this but primarily uses when then she has what she calls a bad knee day. Goals include returning to exercising, walking without the cane, returning to gardening before the season is over, relieving pain and returning function. Assessment reveals pain that ranges from up to a 7/10 at the worst. Patient demos decreased knee ROM, strength of gluts, quads and lower leg muscles as well a minimal quad contraction and fear of moving patellae, TTP at gastrocs, knee joint medially and posterior knee, impaired gait and balance and impaired posture. Based on functional limitations, impaired QOL and pain tolerance patient is a good candidate for skilled PT 2x/wk for 4wks (due to work schedule will be coming 1x/wk). Frequency and Duration: The patient will be seen 2x/wk for 4wks Short Term Goals: (in 2 weeks) Patient will improve knee AROM for full extension and improve flexion by 10 degs Patient will demo good understanding and performance of quad set in multiple different planes without cues from PT Patient will be I in HEP Intermediate Goals: (in 4 weeks) Patient will report 75% improvement in balance and strength of LLE as evidenced by reports no of falls or buckling in LE, dc cane Patient will improve LEFs by 10 points Patient will demo WFL AROM of knee, hip and ankle without pain Patient will demo proper squat and lift techniques without increase in pain Patient will return to hobbies including walking for exercise and gardening Treatment Plan: Modalities to reduce pain, spasms and effusion. Manual therapy to restore motion and function. Therapeutic exercise to improve strength and flexibility. Neuromuscular re-education for posture and balance. Therapeutic activities to return to functional activities of daily living. Electronically signed by: Katharina Manzanares PT Please sign and return to therapist. Thank you for your referral.
--- NOTE | 2025-02-13 07:57 | MHC.PT.DC ---
[facility] [place] Office [place] Office [place] Office [address] Janell Weston [address] [phone] F: [phone] F: [phone] F: [phone] F: [phone] Physical Therapy Discharge Report Diagnosis: This is a 54 yo female presenting to skilled PT with a script for strain of R gastroc muscle. Date of Surgery: Date of Evaluation: 12/04/24 Date of Discharge: 02/13/25 Treatments to Date: 6 Cancellations to Date: 0 No Shows to Date: 0 Discharge Status: Recommend MD Follow-up Discharge Summary: 01/16: Patient has trialed PT for 6 weeks. We have attempted ther-ex for ROM and strengthening, functional training and postural ed, IASTM and manual stretching and TrP, US and KT. None of these interventions have proven to improve her symptoms at all. Her knee ROM is a bit worse than eval but ankles B are WNL. She is unable to squat and unable to achieve full extension in her knees due to patella alignment. I recommended she follow up with ortho and PCP about new POC as she has not made much progress with PT. Patient is in agreement. DC to HEP. Electronically signed by: Katharina Manzanares PT Please sign and return to therapist. Thank you for your referral.
== END 2025-02-13 07:57 | disposition home or self-care (01) ==
LOC: HO.PTCHIC 16:00
PROVIDERS: PCP Internal Medicine; Visit Provider Physician Assistant
DX: S86.111D Strain of other muscle(s) and tendon(s) of posterior muscle group at lower leg level, right leg, subsequent encounter (principal)
CPT/HCPCS: 97035; 97110; 97140; 97162

== ENCOUNTER 2025-02-02 15:15 | Outpatient (REF) | payer OTHER, SELFPAY ==
--- NOTE | ~2025-02-02 | US_ITS ---
EXAMINATION: US KIDNEY BILATERAL HISTORY: N20.0 - Calculus of kidney TECHNIQUE: Real-time grayscale ultrasound imaging of the kidneys was performed and images were reviewed. COMPARISON: Correlation is made with a CT of the abdomen with contrast dated 11/27/2024. FINDINGS: Right kidney: The right kidney measures 11.3 x 5.2 x 6.1 cm. Renal parenchymal echotexture and thickness are normal. There are no masses. There is a 6 x 4 x 4 mm nonobstructing calculus in the interpolar region. There is no hydronephrosis. Left Kidney: The left kidney measures 12.9 x 5.1 x 5.1 cm. Renal parenchymal echotexture and thickness are normal. There are no masses. There is a 6 x 7 x 4 mm calculus at the lower pole. There is mild hydronephrosis. US/US renal BI IMPRESSION: Bilateral nonobstructing calculi as described. Mild left hydronephrosis. Electronically signed by: Matt Moore MD 02/02/2025 03:49 PM EDT
== END 2025-02-02 15:16 | disposition home or self-care (01) ==
LOC: HO.HMGCX 15:15
PROVIDERS: PCP Internal Medicine; Visit Provider Urology
DX: N20.0 Calculus of kidney (principal)
CPT/HCPCS: 76775

== ENCOUNTER → 2025-02-02 15:18 | Outpatient (BNV) | payer OTHER, SELFPAY | PROVIDERS: PCP Internal Medicine; Visit Provider Radiology Diagnostic Radiology | DX: N13.2 Hydronephrosis with renal and ureteral calculous obstruction (principal) | CPT/HCPCS: 76775 ==

== ENCOUNTER 2025-02-27 15:06 | Outpatient (AMB) | payer OTHER, SELFPAY ==
--- NOTE | 2025-02-27 15:36 | MHC.OFFVIS ---
Intake Visit Reasons: ESWL follow up/US Intake Note: Patient is present for ESWL follow up/US Urology Meds:Tamsulosin Blood Thinners:none Allergy Antibiotics:none Negotiations Director Required: No Accompanied by: Self / Same As Patient Allergies aspartame Allergy (Unknown, Verified 02/27/25 15:36) hives naproxen Allergy (Verified 02/27/25 15:36) increased heart rate parsnip Allergy (Unknown, Uncoded 12/06/24 08:30) swelling HPI Comments Details: Alyssa is a pleasant female. She is a patient of Dr. Ye. She is seen for the following urologic conditions - nephrolithiasis Recent ultrasound - fragments Has fragments will sent for analysis Start vitamin B6 Six-month follow-up Nephrolithiasis - History of nephrolithiasis 15 years ago. - Current symptoms: urinary frequency and pressure without pain. Intervention - Left ESWL 02/15 [facility] Medical History Cervical Papanicolaou smear negative within last 12 months Elevated blood pressure reading in office without diagnosis of hypertension Primary osteoarthritis of right knee Fibroid Diverticulosis Tubular adenoma of colon BMI 40.0-44.9, adult Surgical History Hx of cholecystectomy History of tonsillectomy History of surgery History of knee surgery Family History Father Diabetes mellitus COPD (chronic obstructive pulmonary disease) Mother History of kidney cancer Maternal Grandmother Cervical cancer Social History Housing: House Are you a primary healthcare representative to a significant other at home: No Do you presently have visiting nurse or other home services: No Alcohol intake: current Alcohol intake frequency: holidays/special occasions only Patient Tobacco Use Status: Former Tobacco user Tobacco use type: Cigarette e-Cigarette/Vaping Use: Never Used service: No Current occupational status: employed 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 Cognitive needs: No Hearing needs: No Vision needs: Yes Female Reproductive History Menstrual Age of Menarche: 12 Review of Systems Const Denies chills and Denies fever(s) Card Reports no additional complaints and Denies syncope Resp Denies cough GI Denies abdominal pain and Denies heartburn Reports as per HPI and Denies change in libido Neuro Denies syncope Psych Denies change in libido Endo Denies change in libido Physical Exam Const General: cooperative, healthy appearing, comfortable and no acute distress Orientation/consciousness: patient oriented x3 HEENT Face and sinus: Yes normal facial exam Mouth: moist mucous membranes Neck Neck: Yes normal visual inspection, Yes full ROM and Yes trachea midline Chest Chest palpation & inspection: normal inspection of the chest Resp Effort & Inspection: normal respiratory effort, able to speak in complete sentences and no respiratory distress GI Inspection: Yes normal to inspection Back/Spine/Pelvis Cervical Spine: normal cervical lordosis Thoracic/Lumbar Spine: thoracic and lumbar spine normal to inspection Skin General skin exam: no rashes or lesions noted Neuro General: patient oriented x3, gait normal, tone normal and moves all extremities Extrem General: Yes normal to inspection and Yes capillary refill normal Assessment & Plan Assessment & Plan (1) Nephrolithiasis: Code(s): N20.0 - Calculus of kidney Category: Medical Plan B6 Encourage fluid intake Litholink Orders: Orders XR KUB 6 Months N20.0 - Calculus of kidney Surgical Today N20.0 - Calculus of kidney Medications: New pyridoxine (vitamin B6) 50 mg PO DAILY 90 tabs 1RF 90 days N20.0 - Calculus of kidney Patient Instructions: This note is constructed using voice recognition software. While every effort has been made to ensure accuracy will call order clerk errors may have been included. Imaging studies, laboratory and physical exam results were discussed and reviewed in detail. No major barriers to patient understanding were identified. An opportunity to ask questions regarding the treatment plan was provided. All questions were answered. The patient expressed understanding and agreement with the above treatment plan. The patient is aware they should contact our office by phone for worsening of their current condition or the appearance of new urologic symptoms. Compliance is encouraged with any medications and followup testing that is ordered. It is a privilege to participate in the urologic care of your patient. If you have any questions or concerns regarding treatment for the above conditions, or other urologic issues, please do not hesitate to contact me. The office telephone contact is [phone]. Sincerely, Dr Jaleel Hunter MD, [facility] - Urology Compassionate Specialist Care for the Genitourinary System Coding Level of Care Code Est Pt Level 3 (20112) Complex EM visit Add On G2211 Diagnoses Nephrolithiasis N20.0
== END 2025-02-27 15:55 | disposition home or self-care (01) ==
PROVIDERS: PCP Internal Medicine; Visit Provider Urology
DX: N20.0 Calculus of kidney (principal)
CPT/HCPCS: 99024

== ENCOUNTER 2025-02-27 15:06 | Outpatient (REF) | payer OTHER, SELFPAY | END 2025-02-27 15:07 | disposition home or self-care (01) | LOC: HO.LNP 15:06 | PROVIDERS: PCP Internal Medicine; Visit Provider Urology | DX: N20.0 Calculus of kidney (principal) | CPT/HCPCS: 82365; 88300 ==

== ENCOUNTER 2025-03-14 14:54 | Outpatient (AMB) | payer OTHER, SELFPAY ==
--- NOTE | 2025-03-14 14:56 | MHC.OFFVIS ---
Intake Visit Reasons: OV-RT recurrent patellar dislocation f/u Intake Note: Alyssa is a 54 year old female who presents for a follow up of right recurrent patellar dislocation. At her last visit she was referred to physical therapy, she was prescribed meloxicam that she will take daily for 2 weeks, and then as needed. Patient reports that her right knee is bearable - she completed therapy, the therapist is recommending an MRI. She was taking the meloxicam which helped initially but has stopped working and caused stomach upset. Complains of bilateral calf burning & fatigue. Currently her primary concern is her left knee, over the last few weeks her pain has increased in the left knee significantly. She was previously prescribed Prednisone which was very helpful but was only short term. Allergies aspartame Allergy (Unknown, Verified 03/19/25 13:08) hives naproxen Allergy (Verified 03/19/25 13:08) increased heart rate parsnip Allergy (Unknown, Uncoded 03/19/25 13:08) swelling Medication List - Last Reconciled 03/23/25 by Suki Galaviz PA-C acetaminophen (Tylenol Extra Strength) 500 - 1,000 mg (1 - 2 x 500 mg) PO Q6H PRN cefuroxime axetil 500 mg PO BID 7 days ketorolac 10 mg PO Q8H PRN 3 days lidocaine HCl 2% (Lidocaine Viscous) 5 mL mucous membrane TID 7 days meloxicam 15 mg PO DAILY 30 days nystatin 5 mL buccal qid 7 days prednisone 20 mg PO DAILY 5 days pyridoxine (vitamin B6) 50 mg PO DAILY 90 days tamsulosin 0.4 mg PO DAILY 14 days tamsulosin 0.4 mg PO BEDTIME 14 days tramadol 50 mg PO .qhs PRN 7 days valacyclovir 1,000 mg PO q12h 7 days HPI HPI OV-RT recurrent patellar dislocation f/u: Details: 54-year-old female returns to the office today for ongoing bilateral knee pain. She states the pain is worse in the left knee than the right. I previously saw her she was complaining of lower extremity pain. She has had ultrasounds with negative DVTs. She was taking meloxicam which was helpful however it did cause stomach upset. She has discomfort in the left knee with sleeping at night, stairs and walking long distances. She also notes that she occasionally gets swelling in bilateral lower extremities. [facility] Medical History Cervical Papanicolaou smear negative within last 12 months Elevated blood pressure reading in office without diagnosis of hypertension Primary osteoarthritis of right knee Fibroid Diverticulosis Tubular adenoma of colon BMI 40.0-44.9, adult Surgical History Hx of cholecystectomy History of tonsillectomy History of surgery History of knee surgery Family History Father Diabetes mellitus COPD (chronic obstructive pulmonary disease) Mother History of kidney cancer Maternal Grandmother Cervical cancer Social History Housing: House Are you a primary field care coordinator to a significant other at home: No Do you presently have visiting nurse or other home services: No Alcohol intake: current Alcohol intake frequency: holidays/special occasions only Patient Tobacco Use Status: Former Tobacco user Tobacco use type: Cigarette e-Cigarette/Vaping Use: Never Used service: No Current occupational status: employed 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 She has full range of motion with crepitus. She has medial joint line tenderness and discomfort with Mary Jane's. Calf is supple and nontender neurovascularly intact. Assessment & Plan Assessment & Plan (1) Patellofemoral pain syndrome of left knee: Code(s): M22.2X2 - Patellofemoral disorders, left knee Category: Medical Plan: An MRI of the left knee has been ordered to further evaluate the integrity of the meniscus but also the extent of her arthritis. I did explain with some baseline arthritis it is difficult to treat a meniscus tear with arthroscopy as we could flare-up the arthritic knee in the process. Once the scan is complete we can discuss options, patient is content with this plan. Medications: Changed From tramadol 50 mg PO Q6H PRN 8 tabs 0RF pain (scale score 1-3) To tramadol 50 mg PO .qhs PRN 3 tabs 0RF pain (scale score 1-3) 7 days Coding Level of Care Code Est Pt Level 3 (71289) Complex EM visit Add On G2211 Diagnoses Patellofemoral pain syndrome of left knee M22.2X2
== END 2025-03-14 15:45 | disposition home or self-care (01) ==
LOC: HO.HOS 14:55
PROVIDERS: PCP Internal Medicine; Visit Provider Physician Assistant
DX: M22.2X2 Patellofemoral disorders, left knee (principal)
CPT/HCPCS: 20610; 99213

== ENCOUNTER → 2025-03-14 14:54 | Outpatient (BNVA) | payer OTHER, SELFPAY | PROVIDERS: PCP Internal Medicine; Visit Provider Physician Assistant | DX: M22.2X2 Patellofemoral disorders, left knee (principal) | CPT/HCPCS: 20610; J0665; J1100; J2003 ==

== ENCOUNTER 2025-03-16 07:40 | Emergency (ER) | payer OTHER, SELFPAY ==
--- NOTE | ~2025-03-16 | XR_ITS ---
EXAMINATION: XR CHEST 1 VIEW HISTORY: cough, fever COMPARISON: Comparison is made with the prior examination dated 05/13/2019. FINDINGS: A single AP portable view of the chest performed at 8:26 AM is submitted. There are low lung volumes. The lungs are clear. There is no pleural effusion, pneumothorax, or pulmonary vascular congestion. The heart is normal in size. The bones are intact. XR/XR chest 1V IMPRESSION: Low lung volumes. No acute cardiopulmonary abnormality. Electronically signed by: Matt Moore MD 03/16/2025 08:38 AM EDT
[2025-03-16 07:50] VITALS: BP 161/74; PULSE 114; RESP 20; TEMP 37.9; O2SAT 95; BMI 45.6
[2025-03-16 08:08] VITALS: BP 161/74; PULSE 114; RESP 18; RESP 20; TEMP 37.9; O2SAT 95
--- NOTE | 2025-03-16 08:11 | PC.NURSE ---
54 F presents to ED with chest pain, SOB, cough, fever, and headache, abdominal pain. RR even and unlabored. Pt sts started feeling sick yesterday. A+OX4, calm, cooperative. Pt had recent cortisone shot to left leg. Pt c/o 8/10 pain, mostly in head. Pt uses a cane or crutches to ambulate.
[2025-03-16 08:17] LABS: MANUAL DIFF FLAG NO
[2025-03-16 08:29] LABS: COVID-19 Test Positive (Negative); IDNOW Serial# 58CA691E
[2025-03-16 08:41] LABS: Hematocrit 37.6 % (37.0-47.0); Hemoglobin 12.2 g/dl (12.0-16.0); IDNOW Serial# 55D5AD1C; Imm Gran Abs Auto 0.03 X10*3/uL (0.00-0.03); Imm Gran Pct Auto 0.4 % (0.0-0.4); Influenza B2 Negative (Negative); Lymphocytes Absolute Auto 0.9 X10*3/uL (1.2-4.9); Mean Corpuscular HGB Conc 32.4 g/dl (31.0-35.0); Mean Corpuscular Hemoglobin 28.2 pg (27.0-33.0); Mean Corpuscular Volume 86.8 fL (80.0-98.0); NRBC Abs Auto 0.000 X10*3/uL (0.0-0.012); NRBC Pct Auto 0.0 /100WBC (0.0-0.2); Platelet Count 331 X10*3/uL (160-400); Red Blood Count 4.33 X10*6/uL (4.20-5.50); White Blood Count 8.4 X10*3/uL (4.8-10.8)
[2025-03-16 08:42] LABS: Alanine Aminotransferase 22 U/L (0-31); Albumin Level 4.4 g/dL (3.5-5.0); Alkaline Phosphatase 95 U/L (39-117); Anion Gap 12 (12-20); Aspartate Amino Transferase 18 U/L (5-31); Blood Urea Nitrogen 13 mg/dL (9-16); Calcium 8.8 mg/dL (8.4-10.2); Carbon Dioxide 25 mmol/L (22-29); Chloride 108 mmol/L (96-108); Creatinine Clr Calc Pharmacy 110.2; Estimated Glomerular Filt Rate > 60; Magnesium 1.5 mg/dL (1.6-2.6); Potassium 4.1 mmol/L (3.3-5.1); Sodium 141 mmol/L (135-145); Total Protein 7.0 g/dL (6.5-8.0)
--- NOTE | 2025-03-16 08:58 | ED.GENADULT ---
HPI - General Adult General Chief complaint: Fever Stated complaint: fever, chills, coughing, dizzy Time Seen by Provider: 03/16/25 08:05 Source: patient, RN notes reviewed and old records reviewed Mode of arrival: ambulatory Limitations: no limitations History of Present Illness ED Provider: MARIA ESTHER Ortega HPI narrative: 54-year-old female with medical history of patellofemoral syndrome, uterine fibroid, diverticulosis, presents to the ED due to fevers, chills, headache and nausea. Patient states Wednesday she was feeling mildly under the weather and received a cortisone shot in the left knee. Patient was told by her provider to monitor for worsening cough, or fever after injection. Patient began to feel worse and reports Tmax of 101 last night. Patient states she has had a productive cough with clear phlegm and nasal congestion. She took mucinex last night without effect. Patient is vaccinated against flu and covid. Denies chest pain, SOB, difficulty breathing, nausea, vomiting, visual changes. MD complaint: fever, cough, nasal congestion Related Data Previous Rx's ?Medication ?Instructions ?Recorded meloxicam 15 mg tablet 15 mg PO DAILY 30 days #30 tabs 11/06/24 acetaminophen 500 mg tablet 500 - 1,000 mg (1 - 2 x 500 mg) PO 11/27/24 (Tylenol Extra Strength) Q6H PRN pain #30 tabs cefuroxime axetil 500 mg tablet 500 mg PO BID 7 days #14 tabs 11/27/24 ketorolac 10 mg tablet 10 mg PO Q8H PRN severe pain 11/27/24 (scale score 7-10) 3 days #9 tabs prednisone 20 mg tablet 20 mg PO DAILY 5 days #5 tabs 11/27/24 tamsulosin 0.4 mg capsule 0.4 mg PO DAILY 14 days #14 caps 11/27/24 tamsulosin 0.4 mg capsule 0.4 mg PO BEDTIME 14 days #14 caps 12/06/24 pyridoxine (vitamin B6) 50 mg 50 mg PO DAILY 90 days #90 tabs 02/27/25 tablet tramadol 50 mg tablet 50 mg PO .qhs PRN pain (scale 03/14/25 score 1-3) 7 days #3 tabs Allergies Allergy/AdvReac Type Severity Reaction Status Date / Time aspartame Allergy Unknown hives Verified 03/16/25 07:53 naproxen Allergy increased Verified 03/16/25 07:53 heart rate parsnip Allergy Unknown swelling Uncoded 03/14/25 15:02 [facility] Past Medical History Attestation statement: The following information was validated with the patient. Source: old records reviewed and nursing notes reviewed Medical History Cervical Papanicolaou smear negative within last 12 months Elevated blood pressure reading in office without diagnosis of hypertension Primary osteoarthritis of right knee Fibroid Diverticulosis Tubular adenoma of colon BMI 40.0-44.9, adult Surgical History Hx of cholecystectomy History of tonsillectomy History of surgery History of knee surgery Family History Family History Father Diabetes mellitus COPD (chronic obstructive pulmonary disease) Mother History of kidney cancer Maternal Grandmother Cervical cancer Social History Social History Housing: House Are you a primary medicare biller to a significant other at home: No Do you presently have visiting nurse or other home services: No Alcohol intake: current Alcohol intake frequency: holidays/special occasions only Patient Tobacco Use Status: Former Tobacco user Tobacco use type: Cigarette Smoked in Last 30 Days: No e-Cigarette/Vaping Use: Never Used Use of substances other than those prescribed or required for medical reasons: No Advance Directives: Yes Advance Directives Information Provided: Yes Advance Directives on File: No Patient : No service: No Current occupational status: employed 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 HEENT: ?NC, AT. MMM. EOMI, clear conjunctiva, oropharynx clear. NECK: ?Supple without lymphadenopathy.? No stiffness or restricted ROM. HEART:? Normal rate and regular rhythm, normal S1/S1, no m/r/g LUNGS:? CTAB, moving air well. No crackles or wheezes are heard. ABDOMEN: ?Soft, nontender, nondistended with good bowel sounds heard. BACK: No CVAT, no obvious deformity. EXTREMITIES: ?Without cyanosis, clubbing or edema. NEUROLOGICAL: ?Grossly nonfocal. Alert and oriented, moving all 4 extremities. Observed to ambulate with normal gait. Skin: ?Warm and dry without any rash. Medications Administered Discontinued Medications Generic Name Dose Route Start Last Admin Trade Name Freq PRN Reason Stop Dose Admin Lactated Ringer's 1,000 mls @ 999 mls/hr 03/16/25 09:04 03/16/25 10:28 Lr IV 03/16/25 10:04 Infused .Q1H1M ONE Infusion Magnesium Sulfate 2 gm in 50 mls @ 150 mls/hr 03/16/25 09:04 03/16/25 09:50 Magnesium Sulfate/H2o IV 03/16/25 09:23 Infused ONCE ONE Infusion Acetaminophen 1,000 mg in 100 mls @ 400 mls/hr 03/16/25 09:04 03/16/25 09:50 Ofirmev IV 03/16/25 09:18 Infused ONCE ONE Infusion Ketorolac Tromethamine 15 mg 03/16/25 09:04 03/16/25 09:27 Ketorolac Tromethamine 15 Mg/Ml Vial IVPUSH 03/16/25 09:05 15 mg ONCE ONE Administration Medical Decision Making Medical Decision Making MDM Narrative: 54-year-old female with medical history of patellofemoral syndrome, uterine fibroid, diverticulosis, presents to the ED due to fevers, chills, headache and nausea. Patient states Wednesday she was feeling mildly under the weather and received a cortisone shot in the left knee. Patient was told by her provider to monitor for worsening cough, or fever after injection. Patient began to feel worse and reports Tmax of 101 last night. Patient states she has had a productive cough with clear phlegm and nasal congestion. She took mucinex last night without effect. Patient is vaccinated against flu and covid VS on initial observation-BP 161/74, pulse rate of 114, respiratory rate of 20, low-grade fever of 100.2, O2 saturation 95% on room air. On physical exam lungs clear to auscultation bilaterally, cardiac exam reveals tachycardic rate, with normal rhythm, no murmurs/rubs/gallops, abdomen is soft, nondistended, no rigidity, nontender, lower extremities without pitting edema. Labs without leukocytosis/leukopenia however does have a left shift of 78.9, no evidence of anemia, H&H stable, hypomagnesemia of 1.5 Viral serology positive for COVID Patient being medicated with IV fluids, 1 g IV Tylenol, 15 mg IV Toradol, 2gm magnesium for general malaise, fever, body aches and hypomagnesemia. While patient was in triage, there was a question for sepsis however patient COVID-19 positive, her symptoms are most likely viral, not bacterial and does not meet sepsis criteria. Patient feels much better after IV fluids, toradol and tylenol. Vital signs on re evaluation- BP 122/76, pulse rate of 96, respiratory rate of 18, afebrile with oral temp of 98.3? O2 saturation 96% on room air. Patient symptoms due to COVID-19. I educated patient on self limiting virus. I counseled patient to ensure adequate hydration and nutrition. I counseled patient to follow up with their primary care doctor and on strict return precautions. Patient is in agreement with the plan. Differential Diagnosis Differential Diagnoses: The differential diagnosis associated with the presentation includes Flu Covid Viral illness pneumonia Admission/Observation Consideration of admission/observation: Escalation of care including admission/observation considered Lab Data [facility] Lab Attestation statement: I reviewed the patient's lab results. 03/16/25 08:13 03/16/25 08:13 Labs: Lab Results 03/16/25 Range/Units 08:13 WBC 8.4 (4.8-10.8) X10*3/uL RBC 4.33 (4.20-5.50) X10*6/uL Hgb 12.2 (12.0-16.0) g/dl Hct 37.6 (37.0-47.0) % MCV 86.8 (80.0-98.0) fL MCH 28.2 (27.0-33.0) pg MCHC 32.4 (31.0-35.0) g/dl RDW 13.4 (11.0-16.0) % Plt Count 331 (160-400) X10*3/uL MPV 8.8 L (9.4-12.3) fL Immature Gran % (Auto) 0.4 (0.0-0.4) % Neut % (Auto) 78.9 H (45-73) % Lymph % (Auto) 10.9 L (20-40) % Bullock % (Auto) 8.1 (2-11) % Eos % (Auto) 1.3 (0-4) % Baso % (Auto) 0.4 (0-2) % Lymph # (Auto) 0.9 L (1.2-4.9) X10*3/uL Bullock # (Auto) 0.7 (0.1-1.2) X10*3/uL Eos # (Auto) 0.1 (0.0-0.4) X10*3/uL Baso # (Auto) 0.0 (0.0-0.2) X10*3/uL Abs Immat Gran (auto) 0.03 (0.00-0.03) X10*3/uL Absolute Neuts (auto) 6.6 (2.0-8.3) x10*3/uL Absolute Nucleated RBC 0.000 (0.0-0.012) X10*3/uL Nucleated RBC % (auto) 0.0 (0.0-0.2) /100WBC Sodium 141 (135-145) mmol/L Potassium 4.1 (3.3-5.1) mmol/L Chloride 108 (96-108) mmol/L Carbon Dioxide 25 (22-29) mmol/L Anion Gap 12 (12-20) BUN 13 (9-16) mg/dL Creatinine 0.72 (0.5-1.4) mg/dL Estim Creat Clear Calc 110.2 Estimated GFR > 60 Random Glucose 106 (60-115) mg/dL Calcium 8.8 (8.4-10.2) mg/dL Magnesium 1.5 L (1.6-2.6) mg/dL Total Bilirubin 0.3 (0.0-1.0) mg/dL Direct Bilirubin 0.1 (0.0-0.5) mg/dL AST 18 (5-31) U/L ALT 22 (0-31) U/L Alkaline Phosphatase 95 (39-117) U/L Total Protein 7.0 (6.5-8.0) g/dL Albumin 4.4 (3.5-5.0) g/dL COVID-19 (DAVE) Positive A (Negative) COVID-19 Clin Com See Note Influenza Type A (MEAGAN) Negative (Negative) Influenza Type B (MEAGAN) Negative (Negative) Influenza A & B Note See Note Independent Interpretation I performed an independent interpretation of an: Plain X-Ray Interpretation: I personally interpreted the CXR which was negative for cardiomegaly, infiltrates, consolidations, pneumothorax, I agree with the radiologist's interpretation Radiology Impression Discussion of test interpretation with radiology: I have reviewed the radiologist's reading. Radiologist Impression: CXR FINDINGS: A single AP portable view of the chest performed at 8:26 AM is submitted. There are low lung volumes. The lungs are clear. There is no pleural effusion, pneumothorax, or pulmonary vascular congestion. The heart is normal in size. The bones are intact. XR/XR chest 1V IMPRESSION: Low lung volumes. No acute cardiopulmonary abnormality. Electronically signed by: Matt Moore MD 03/16/2025 08:38 AM EDT Dictated By: Matt Moore MD Signed By: <Electronically signed by Matt Moore MD in OV> 03/16/25 0838 Independent Historian Clinical information obtained from an independent historian. History obtained from or confirmed by: Other (Daughter at bedside corroborating history) External Record Review External record reviewed: Inpatient record, Office record and Outpatient record Chronic Conditions Patient?s care impacted by: Other (Patellofemoral syndrome, uterine fibroid, diverticulosis) Discharge Plan Discharge Clinical Impression: COVID-19 Patient Disposition: Home, Self-Care Additional Instructions: You were evaluated in the ED today due to fever, cough, body aches. Your lab work was reassuring as there was no significant elevation in your white blood cell count indicative of severe infection, your magnesium was low today however was repleted with 2 g through IV, no other abnormality seen on your lab work today. Your chest x-ray was negative for emergent findings. Your COVID swab was positive for COVID-19, most likely the cause of your symptoms. You were medicated with IV fluids, 2g IV magnesium, 1g IV tylenol and 15mg IV toradol for pain, fever, and low magnesium. COVID infection is self-limiting and will improve over the next 5-7 days. Ensure you were getting plenty of hydration through water, Gatorade, Pedialyte. You may experience decreased appetite over the next few days, eat a bland diet and advance as tolerated. To manage pain and fever at home, take 500 mg of Tylenol and 400 mg of ibuprofen every 6 hours. Please follow up with your primary care doctor to ensure resolution of your symptoms. Please return to the emergency department if you experience chest pain, shortness of breath, difficulty breathing, fevers over 100.4? that are not managed by Tylenol/ibuprofen, or any other new/worsening/concerning symptoms. Prescriptions: No Action tamsulosin 0.4 mg capsule 0.4 mg PO BEDTIME 14 Days Qty: 14 0RF prednisone 20 mg tablet 20 mg PO DAILY 5 Days Qty: 5 0RF ketorolac 10 mg tablet 10 mg PO Q8H PRN (Reason: severe pain (scale score 7-10)) 3 Days Qty: 9 0RF Rx Instructions: Patient tolerated Toradol well in ED on 11/27/2024 tamsulosin 0.4 mg capsule 0.4 mg PO DAILY 14 Days Qty: 14 0RF cefuroxime axetil 500 mg tablet 500 mg PO BID 7 Days Qty: 14 0RF acetaminophen [Tylenol Extra Strength] 500 mg tablet 500 - 1,000 mg PO Q6H PRN (Reason: pain) Qty: 30 0RF meloxicam 15 mg tablet 15 mg PO DAILY 30 Days Qty: 30 3RF pyridoxine (vitamin B6) 50 mg tablet 50 mg PO DAILY 90 Days Qty: 90 1RF tramadol 50 mg tablet 50 mg PO .qhs PRN (Reason: pain (scale score 1-3)) 7 Days Qty: 3 0RF Stand Alone Forms: Work/School Release Print Language: [place]
[2025-03-16] MEDS: Magnesium Sulfate/H2O 2 GM/50 ML PIGGYBACK IV (09:26)
[2025-03-16] MEDS: Lactated Ringers 1,000 ML 999 ML IV (09:27)
[2025-03-16 12:05] VITALS: BP 122/76; PULSE 98; RESP 16; TEMP -17.7; TEMP 0; O2SAT 96
== END 2025-03-16 12:22 | disposition home or self-care (01) ==
PROVIDERS: Emergency Provider Emergency Medicine; PCP Internal Medicine
DX: U07.1 COVID-19 (principal); R50.9 Fever, unspecified; R05.9 Cough, unspecified; R42 Dizziness and giddiness
CPT/HCPCS: 36415; 71045; 80048; 80076; 83735; 85025; 87502; 87635; 96365; 96375; 99284; J0131; J1885; J3475; J7120

== ENCOUNTER → 2025-03-16 07:56 | Outpatient (BNV) | payer OTHER, SELFPAY | PROVIDERS: Emergency Provider Emergency Medicine; PCP Internal Medicine; Visit Provider Radiology Diagnostic Radiology | DX: J98.4 Other disorders of lung (principal) | CPT/HCPCS: 71045 ==

== ENCOUNTER 2025-03-19 12:01 | Outpatient (AMB) | payer OTHER, SELFPAY ==
--- NOTE | 2025-03-19 13:03 | MHC.OFFWIV ---
Intake Vital Signs 03/19/25 13:04 Height 5 ft 3 in Weight 259 lb BMI 45.9 BP 144/98 H Blood Pressure Location Rt brachial Position Sitting Pulse 107 H Pulse Source Pulse Oximeter Temp 98.2 F Temp Source Oral Pulse Oximetry (%) 97 Oxygen Delivery Method Room Air Intake Visit Reasons: EP Mouth sores Intake Note: Patient presents with c/o cold sores all over her mouth x2 days - patient recently had Covid Patient Tobacco Use Status: Former Tobacco user Allergies aspartame Allergy (Unknown, Verified 03/19/25 13:08) hives naproxen Allergy (Verified 03/19/25 13:08) increased heart rate parsnip Allergy (Unknown, Uncoded 03/19/25 13:08) swelling Do you need a note to return to daycare/school/sports/work: No HPI HPI Comments History of Present Illness Details History of Present Illness - The patient is a 54-year-old female presenting with oral sores and thrush. - The onset of oral sores followed a cortisone shot, potentially suppressing her immune system. - She was diagnosed with COVID-19, which has resolved, but triggered an outbreak of cold sores. - The sores are located inside and outside the mouth, including the lips, gums and tongue, causing significant pain and inability to wear her dental plate. - The sores began on Wednesday and have worsened, with the patient unable to eat for three days. - She thinks that she also has thrush. - She has pain with swallowing. - She has not taken anything for the cold sores. - She denies fever, chills, CP, SOB, abd pain, n/v/d. Physical Exam General: Cooperative, healthy appearing, comfortable, no acute distress and well developed Orientation: Patient oriented x3 Limitations: No limitations Mouth: Multiple sores noted on the gums and cheeks. White coating noted on the tongue. Neck: Normal visual inspection and Yes full ROM Respiratory: Normal respiratory effort and able to speak in complete sentences. Clear to auscultation bilaterally Cardiovascular: Regular rate and rhythm. Normal S1 and S2 Skin: Multiple raised papules noted on the upper and lower outer lips. Patient was informed and verbally consented to the use of an ambient scribe for clinic note documentation during this visit. [facility] Medical History Cervical Papanicolaou smear negative within last 12 months Elevated blood pressure reading in office without diagnosis of hypertension Primary osteoarthritis of right knee Fibroid Diverticulosis Tubular adenoma of colon BMI 40.0-44.9, adult Surgical History Hx of cholecystectomy History of tonsillectomy History of surgery History of knee surgery Family History Father Diabetes mellitus COPD (chronic obstructive pulmonary disease) Mother History of kidney cancer Maternal Grandmother Cervical cancer Social History Housing: House Are you a primary patient care technician instructor to a significant other at home: No Do you presently have visiting nurse or other home services: No Alcohol intake: current Alcohol intake frequency: holidays/special occasions only Patient Tobacco Use Status: Former Tobacco user Tobacco use type: Cigarette e-Cigarette/Vaping Use: Never Used service: No Current occupational status: employed 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 Cognitive needs: No Hearing needs: No Vision needs: Yes Female Reproductive History Menstrual Age of Menarche: 12 Review of Systems Const All systems reviewed & are unremarkable except as noted in HPI and below Physical Exam Vital Signs: Last Vital Signs Temp 98.2 F 03/19/25 13:04 Pulse 107 H 03/19/25 13:04 BP 144/98 H 03/19/25 13:04 Pulse Ox 97 03/19/25 13:04 Oxygen Delivery Method Room Air 03/19/25 13:04 BMI result Body Mass Index 45.9 Assessment & Plan Assessment & Plan (1) Cold sore: Code(s): B00.1 - Herpesviral vesicular dermatitis (2) Thrush: Code(s): B37.0 - Candidal stomatitis Plan Most likely cold sores and thrush after having covid plan - 1. Oral Thrush - Prescribed nystatin swish and swallow for seven days to treat oral thrush. 2. Cold Sores - Prescribed Valtrex for the treatment of cold sores. - Viscous lidocaine as needed for pain Medications: New nystatin administer 1/2 of dose in each side of the mouth 5 mL buccal qid 140 mL 0RF 7 days lidocaine HCl 2% (Lidocaine Viscous) 5 mL mucous membrane TID 100 mL 0RF 7 days valacyclovir 1,000 mg PO q12h 14 tabs 0RF 7 days Coding Level of Care Code Est Pt Level 3 (26478) Diagnoses Cold sore B00.1 Thrush B37.0
[2025-03-19 13:04] VITALS: BP 144/98; PULSE 107; TEMP 36.8; O2SAT 97; BMI 45.9
== END 2025-03-19 14:13 | disposition home or self-care (01) ==
PROVIDERS: PCP Internal Medicine; Visit Provider Physician Assistant Medical
DX: B00.1 Herpesviral vesicular dermatitis (principal); B37.0 Candidal stomatitis

== ENCOUNTER → 2025-04-25 19:39 | Outpatient (BNV) | payer OTHER, SELFPAY | PROVIDERS: PCP Internal Medicine; Visit Provider Radiology Diagnostic Ultrasound | DX: S83.242A Other tear of medial meniscus, current injury, left knee, initial encounter (principal); S83.281A Other tear of lateral meniscus, current injury, right knee, initial encounter; M17.12 Unilateral primary osteoarthritis, left knee; M25.462 Effusion, left knee | CPT/HCPCS: 73721 ==

== ENCOUNTER 2025-04-25 19:40 | Outpatient (REF) | payer OTHER, SELFPAY ==
--- NOTE | ~2025-04-25 | MR_ITS ---
EXAMINATION: MR KNEE WITHOUT CONTRAST, LEFT CLINICAL INFORMATION: Primary osteoarthritis COMPARISON: X-ray left knee 12/17/2018, x-ray bilateral knees 11/06/2024 TECHNIQUE: MRI of the knee without contrast was performed using routine sequences on a high-field scanner. FINDINGS: MENISCI: Medial Meniscus: Complex tear of the body, involving the articular surfaces and free edge, with small caliber of the body. Horizontal tear in the posterior horn. Anterior horn and root degenerative fraying. Lateral Meniscus: Complex tear of the anterior horn and the anterior horn/body junction. Small caliber of the anterior horn.. LIGAMENTS: Cruciate: The ACL is not well visualized, with thin caliber of the ACL. This could reflect physiological variation versus sprain/partial tearing. PCL is intact. Collateral: Mild edema associated with the MCL suggesting grade 1-2 sprain. Intact LCL complex. EXTENSOR MECHANISM: Intact ARTICULAR CARTILAGE/BONE: Patellofemoral Compartment: Lateral patellar subluxation. Mild-moderate arthritis, with nonuniform patellar chondral thinning, subchondral cyst/edema. Medial Compartment: Moderate-severe arthritis, joint space loss, chondral thinning, marginal osteophytes. Lateral Compartment: Mild arthritis There is a lesion in the proximal fibular head and neck. Measures 1.7 x 1.6 x 2.8 cm ((AP x ML x CC). Lesion is right on T2, with internal low signal foci; low on T1. Margins are lobulated. No surrounding marrow edema. No cortical thinning. The prior x-ray of 12/17/2018 demonstrates a lucent lesion with internal sclerotic foci. Overall, the findings are suggestive of a nonaggressive bony lesion, differential considerations include low-grade chondroid lesion/enchondroma. JOINT FLUID AND BURSAE: Small-moderate effusion. Small Fabian's cyst. Mild medial gastrocnemius muscle edema, probable strain . Subcutaneous edema. MR/MR knee LT wo con IMPRESSION: * Medial meniscal tear including tear of the body and posterior horn. * Lateral meniscal tear of the anterior horn and anterior horn/body junction. * ACL appears thin caliber. This could reflect physiological variation versus sprain/partial tearing, age-indeterminate * MCL grade 1-2 sprain. *Tricompartment arthritis. Moderate-severe medial compartment arthritis. *Lesion in the proximal fibula measuring 2.8 cm. MRI characteristics as detailed above. Overall, findings are suggestive of a low-grade lesion, differential considerations include a low-grade chondroid lesion/enchondroma. Clinically correlate. Further evaluation as clinically indicated. Recommend ongoing clinical and radiographic follow-up. *Mild medial gastrocnemius muscle edema, probable strain. *Small-moderate joint effusion. Electronically signed by: Darrell Miller MD 04/26/2025 10:48 AM [facility]
== END 2025-04-25 19:41 | disposition home or self-care (01) ==
LOC: HO.MRI 19:40
PROVIDERS: PCP Internal Medicine; Visit Provider Physician Assistant
DX: M17.12 Unilateral primary osteoarthritis, left knee (principal)
CPT/HCPCS: 73721

== ENCOUNTER 2025-05-16 11:21 | Outpatient (REF) | payer OTHER, SELFPAY ==
[2025-05-16 14:45] LABS: MANUAL DIFF FLAG NO
[2025-05-16 15:14] LABS: Hematocrit 40.6 % (37.0-47.0); Hemoglobin 12.9 g/dl (12.0-16.0); Imm Gran Abs Auto 0.02 X10*3/uL (0.00-0.03); Imm Gran Pct Auto 0.3 % (0.0-0.4); Lymphocytes Absolute Auto 3.3 X10*3/uL (1.2-4.9); Mean Corpuscular HGB Conc 31.8 g/dl (31.0-35.0); Mean Corpuscular Hemoglobin 28.2 pg (27.0-33.0); Mean Corpuscular Volume 88.6 fL (80.0-98.0); NRBC Abs Auto 0.000 X10*3/uL (0.0-0.012); NRBC Pct Auto 0.0 /100WBC (0.0-0.2); Platelet Count 361 X10*3/uL (160-400); Red Blood Count 4.58 X10*6/uL (4.20-5.50); White Blood Count 7.8 X10*3/uL (4.8-10.8)
[2025-05-16 16:26] LABS: Alanine Aminotransferase 29 U/L (0-31); Albumin Level 4.5 g/dL (3.5-5.0); Alkaline Phosphatase 112 U/L (39-117); Anion Gap 13 (12-20); Aspartate Amino Transferase 22 U/L (5-31); Blood Urea Nitrogen 11 mg/dL (9-16); Calcium 9.5 mg/dL (8.4-10.2); Carbon Dioxide 26 mmol/L (22-29); Chloride 106 mmol/L (96-108); Cholesterol 189 mg/dL (<200); Estimated Glomerular Filt Rate > 60; HDL Cholesterol 54 mg/dL (>40); Potassium 4.1 mmol/L (3.3-5.1); Sodium 141 mmol/L (135-145); Total Protein 7.3 g/dL (6.5-8.0); Triglycerides 70 mg/dL (<150)
== END 2025-05-16 11:22 | disposition home or self-care (01) ==
LOC: HO.HMGCLDS 11:21
PROVIDERS: PCP Internal Medicine; Visit Provider Internal Medicine
DX: Z00.00 Encounter for general adult medical examination without abnormal findings (principal); D12.6 Benign neoplasm of colon, unspecified; M17.11 Unilateral primary osteoarthritis, right knee; Z13.6 Encounter for screening for cardiovascular disorders; Z13.29 Encounter for screening for other suspected endocrine disorder; Z68.41 Body mass index [BMI] 40.0-44.9, adult
CPT/HCPCS: 36415; 80053; 80061; 82306; 84443; 85025